=== PATIENT | male | born 1935 | race Caucasian/White ===

== ENCOUNTER 2016-12-09 16:00 | Inpatient (IN) | payer OTHER, MEDICARE ==
[~2016-12-09] VITALS: Ht 175.3 cm; Wt 84.8 kg
--- NOTE | 2016-12-09 16:15 | NUR ---
Informed waiting has been performed.
--- NOTE | 2016-12-09 16:15 | NUR ---
TRIAGE: PT TO ER WITH FAMILY C/C "NOSE BLEED, BAD LEGS, HE CAN'T WALK, HE'S NOT EATING. PAIN TO NECK AND SHOULDERS. LOWER SPINE HURTS". FELL A COUPLE DAYS AGO OFF A CHAIR PER S/O. FAMILY MEMBERS DO MOST OF THE TALKING FOR PATIENT BUT PATIENT DOES RATE PAIN 8/10 TO NECK/SHOULDER AREA. NOSE BLEED HAS BEEN INTERMITTENT X COUPLE WEEKS BUT CONSTANT X [address] ABBASI TODAY REGARDING SAME AND WAS ADVISED TO COME TO ER FOR EVAL. DAUGHTER STATES HE HAS BEEN REFUSING TO COME TO HOSPITAL BEFORE TODAY. PT SITS SLUMPED OVER IN W/C AT TRIAGE WEARING ONLY ?UNDERWEAR FROM WAIST DOWN AND SHIRT AND COAT. EXTREMITIES COLD TO TOUCH, UNABLE TO OBTAIN PULSE OXIMETRY READING AT TRIAGE. PT FALLS ASLEEP AT TRIAGE. FAMILY STATES HE HAS NOT BEEN SLEEPING.
--- NOTE | 2016-12-09 16:25 | ED GENERAL ADULT ---
See Addendum History of Present Illness General Chief Complaint: General Adult Stated Complaint: NOSE BLEED/BILATERAL LEG CELLULITIS Source: patient, family, old records Exam Limitations: clinical condition Vital Signs & Intake/Output Vital Signs & Intake/Output Vital Signs Date Time Temp Pulse Resp B/P B/P Pulse O2 O2 Flow FiO2 Mean Ox Delivery Rate 12/09 1823 97.4 65 15 135/61 100 Room Air Room Air 12/09 1804 100 Room Air Room Air 12/09 1648 55 15 108/57 100 Room Air Room Air 12/09 1605 97.6 56 94/54 Allergies Coded Allergies: No Known Allergies (12/09/16) Reconcile Medications Atorvastatin Calcium 80 MG TABLET 1 TAB PO DAILY CHOLESTEROL (Reported) Atropine Sulfate 1 % DROPS 1 DROP OS EOD LEFT EYE (Reported) Brimonidine Tartrate/Timolol (Combigan Eye Drops) 0.2 %-0.5 % DROPS 1 DROP OP BID BOTH EYES (Reported) Cephalexin 750 MG CAPSULE 1 CAP PO 4XDAILY ANTIBIOTIC (Reported) Dabigatran Etexilate Mesylate (Pradaxa 150 MG) 150 MG CAPSULE 1 CAP PO BID BLOOD THINNER (Reported) Fenofibrate Nanocrystallized (Tricor) 145 MG TABLET 1 TAB PO DAILY CHOLESTEROL /TRIGLYCERIDES (Reported) Furosemide 20 MG TABLET 1 TAB PO BID DIURETIC (Reported) Glucosam/Chond/Hyalu/Cf Borate (Move Free Joint Health Tablet) (Unknown Strength ) TABLET (Unknown Dose) PO AD SUPPLEMENT (Reported) Insulin Glargine,Hum.rec.anlog (Lantus Solostar) (Unknown Strength) INSULN.PEN (Unknown Dose) SC DAILY DM (Reported) Mesalamine (Asacol Hd) 800 MG TABLET.DR 2 TAB PO BID GI (Reported) Jesup-3/Dha/Epa/Fish Oil (Fish Oil 1,000 MG Softgel) (Unknown Strength) CAPSULE (Unknown Dose) PO DAILY SUPPLEMENT (Reported) Potassium Chloride 20 MEQ TAB.ER.PRT 1 TAB PO DAILY SUPPLEMENT (Reported) Silver Sulfadiazine (Silvadene) 1 % CREAM..G. 1 KEE TOP BID BILATERAL SHINS ( Reported) apply to affected area(s) Torsemide 100 MG TABLET 0.5 TAB PO DAILY DIURETIC (Reported) Valsartan/Hydrochlorothiazide (Valsartan-Hctz 320-25 MG Tab) 320 MG-25 MG TABLET 1 TAB PO DAILY BP (Reported) Triage Note: TRIAGE: PT TO ER WITH FAMILY C/C "NOSE BLEED, BAD LEGS, HE CAN'T WALK, HE'S NOT EATING. PAIN TO NECK AND SHOULDERS. LOWER SPINE HURTS". FELL A COUPLE DAYS AGO OFF A CHAIR PER S/O. FAMILY MEMBERS DO MOST OF THE TALKING FOR PATIENT BUT PATIENT DOES RATE PAIN 8/10 TO NECK/SHOULDER AREA. NOSE BLEED HAS BEEN INTERMITTENT X COUPLE WEEKS BUT CONSTANT X [address] ABBASI TODAY REGARDING SAME AND WAS ADVISED TO COME TO ER FOR EVAL. DAUGHTER STATES HE HAS BEEN REFUSING TO COME TO HOSPITAL BEFORE TODAY. PT SITS SLUMPED OVER IN W/C AT TRIAGE WEARING ONLY ?UNDERWEAR FROM WAIST DOWN AND SHIRT AND COAT. EXTREMITIES COLD TO TOUCH, UNABLE TO OBTAIN PULSE OXIMETRY READING AT TRIAGE. PT FALLS ASLEEP AT TRIAGE. FAMILY STATES HE HAS NOT BEEN SLEEPING. Triage Nurses Notes Reviewed? yes Onset: UNKNOWN Duration: worse persistent since (2-3 WEEKS) Timing: recent history Injury Environment: home Severity: severe No Modifying Factors: none HPI: Patient is an 80-year-old male with history of alcohol abuse, drinks at least 5- 6 beers daily along with 5-6 glasses of wine. His last drink was 2 days ago. They're coming in with family today with multiple complaints. Patient has had on and off nosebleeds for the past 5-6 days. Per the he had a fall 5-6 days ago but didn't tell anyone until several days later. Patient complaining about headache that is frontal and throbbing. Patient also complaining about dark stool that thing going on for the past several days. Positive malaise. No fevers or chills. Per the the fall was unwitnessed and he crawled into bed that night. Patient cannot recall the fall actually happening. Patient denying any visual changes. No blurred vision or double vision. Denies any eye pain. Today the family noticed that his right eye was bulging compared to the left eye. They report that this is new today. reports that he gets lightheaded only with positional changes. Patient also reporting neck pain for the past week or so. Pain is worse in the morning and then improves strep a day. Family reports that they feel he is "sluggish". Denies chest pain or shortness of breath. They called the primary care physician a few days ago and he instructed them to bring him to the emergency department. Patient refused at that time. Patient does take a blood thinner daily. Per the patient has been refusing TO TAKE MEDS over the past couple days. Also refusing to take some of his daily medications. (DIVYA POSADA) Past History Travel History Traveled to [place] past 21 day No Medical History Any Pertinent Medical History? see below for history Neurological: NONE EENT: NONE Cardiovascular: CAD, hypertension, hyperlipidemia, AFIB Respiratory: NONE Gastrointestinal: NONE Hepatic: NONE Renal: NONE Musculoskeletal: BLE EXTREMITY INFECTION Psychiatric: NONE Endocrine: diabetes Blood Disorders: NONE Cancer(s): NONE TAMPER OPERATOR/Reproductive: NONE Surgical History Surgical History: non-contributory Psychosocial History What is your primary language Stateless Tobacco Use: Quit >30 days ago ETOH Use: heavy use Illicit Drug Use: denies illicit drug use Family History Hx Contributory? No (DIVYA POSADA) Review of Systems Review of Systems Constitutional: Reports: malaise. Comments Review of systems: See HPI, All other systems negative. Constitutional, no chills fever or weight loss HEENT: No visual changes no sore throat no congestion Cardiovascular: No chest pain ,palpitation , orthopnea or ankle swelling Skin, no jaundice no rashes Respiratory: No dyspnea cough sputum or hemoptysis GI: No nausea no vomiting : No dysuria No hematuria Muscle skeletal: no back pain Neurologic: No numbness Psych: No INCREASED stress anxiety or depression,. Heme/endocrine: ON BLOOD THINNERS-NOSE BLEEDS Immunology: No splenectomy or history of AIDS (DIVYA POSADA) Physical Exam Physical Exam General Appearance: lethargic, DISHEVELED Comments: Well-developed well-nourished person in no acute distress HEENT: Right orbit that appears to be protruding compared to left orbit. Extraocular motion intact, no nystagmus. Left pupil is round, 3 mm equal and reactive to light and accommodation. Right pupil is approximately 2 cm and fixed, nonreactive to light or accommodation. Dried blood in bilateral nares. No obvious septal hematoma identified. External auditory canal and Tympanic membranes clear. Nares dry oral mucosa. Tongue appears large. Neck: Supple, no lymphadenopathy, normal range of motion without pain or tenderness, no C-spine tenderness to palpation. Back: Nontender Cardiovascular: IREGULAR rate and rhythms normal JVP Respiratory: Chest nontender. No respiratory distress.breath sounds clear to auscultation bilaterally Abdomen: Soft, nontender nondistended, no appreciable organomegaly. Normal bowel sounds. No ascites, no rebound or guarding. Extremity: Mild nonpitting edema and enlarged ovaries bilaterally, no calf tenderness to palpation, pedal pulses are 1+ bilaterally. Delayed capillary refill at approximately 4 seconds on the lower extremities bilaterally. Neuro: Alert oriented x3, motor sensory normal, cranial nerves IIi through XII grossly intact. Skin: Chronic appearing ulcers noted on the large ovaries bilaterally on the shins. On the right lower extremity there are 2 ulcerous lesions approximately 6 cm each, unable to great at this time secondary to debris tissue on the wound, likely grade 2 wounds, no surrounding erythema. There are 3 similar circular ulcerous wounds noted on the left rubin approximately 4-5 cm each. There is granulation tissue noted on the ulcers of the left lower extremity. Cyanosis noted with delayed cap refill of the fingers of the upper extremity. Psych: Lethargic, responds to questions when asked. Poor memory. Core Measures ACS in differential dx? Yes CVA/TIA Diagnosis: No Severe Sepsis Present: No Septic Shock Present: No (DARBY POLLOCK,DIVYA) Progress Differential Diagnoses I considered the following diagnoses in my evaluation of the patient: Intracranial bleed, minor head injury, thyroid dysfunction, diabetic ketoacidosis, upper GI bleed, ACS, dehydration and acute renal failure Diagnostic Imaging: Viewed by Me: Radiology Read, CT Scan. Discussed w/RAD: Radiology Read, CT Scan. Radiology Impression: PATIENT: JENNIFER TABARES PRESENT AGE: 80 PATIENT ACCOUNT NO: [id number] : 35 LOCATION: [facility] ORDERING PHYSICIAN: DIVYA POLLOCK SERVICE DATE: 12/09/16 EXAM TYPE: CAT - CT CERV SPINE WO IV CONTRAST; CT HEAD WO IV CONTRAST; CT MAXILLOFACIAL W/O CON EXAMINATION: CT HEAD WITHOUT CONTRAST CT FACIAL BONES WITHOUT CONTRAST CLINICAL INFORMATION: Unwitnessed fall, pain COMPARISON: None. TECHNIQUE: Contiguous axial imaging was performed from the skull base to vertex without intravenous administration of contrast. In addition, helical noncontrast CT imaging was acquired through the facial bones and source images were reviewed along with axial reconstructions and sagittal and coronal MPRs. DLP: 1549.8 mGy-cm FINDINGS : HEAD: No intracranial mass, hemorrhage, or midline shift is visualized. No extra-axial collections are identified. The ventricles and sulci are mildly appropriate consistent with stated age. There is an area of hypoattenuation within the left posterior occipital region which extends to the inner table. The adjacent sulci are normal. A similar but much less prominent findings noted on the right side. In addition, there is mild diffuse hypoattenuation within the periventricular and subcortical white matter. Incidentally noted scattered punctate calcifications throughout the calvarium. These are present along the sulci and are predominately left sided. Moderate to significant calcifications involving the cavernous portions of the carotid arteries. There is mild mucosal thickening within the left ethmoid air cells. Trace mucosal thickening is present within the right anterior ethmoid air cells. Mild circumferential mucosal thickening present within the left maxillary sinus. The right maxillary sinus and sphenoid sinuses are well aerated. FACIAL BONES: There is no evidence of an acute facial bone fracture. The orbits are symmetric and intact. No significant dental disease is visualized. Soft tissues are unremarkable. IMPRESSION: No acute intracranial process or discrete facial bone fracture. Moderate chronic small vessel ischemic changes. 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 EXAMINATION: CT CERVICAL SPINE WITHOUT AND WITH CONTRAST CLINICAL INFORMATION: Unwitnessed fall, pain COMPARISON: None. TECHNIQUE: Multidetector CT imaging of the cervical spine was performed and displayed in axial, coronal and sagittal reformations DLP: See above FINDINGS: No prevertebral soft tissue swelling. No acute fracture or subluxation. The lateral masses of C1 are normally located relative to the odontoid process. Well-corticated fragments of bone are identified at the anterior and inferior corners of the C3, C4 and C5 vertebral bodies. Bridging osteophytes are present at the C5-C6, C6-C7 and C7-T1 levels. Small posterior osteophytes are present at the C6-C7 and C7-T1 levels. There is mild loss in height of the intervertebral disc space at the C3-C4 and C5-C6 levels. Surgical clips noted in the region of the carotid bulb likely from prior surgery. The lung apices are clear. IMPRESSION: No acute fracture or subluxation of the cervical spine. Mild to moderate spondylosis of the cervical spine., PATIENT: JENNIFER TABARES PRESENT AGE: 80 PATIENT ACCOUNT NO: [id number] : 35 LOCATION: [facility] ORDERING PHYSICIAN: DIVYA POLLOCK SERVICE DATE: 12/09/16 EXAM TYPE: CAT - CT ABD & PELVIS W/O IV CONTRAS; CT CHEST WO IV CONTRAST EXAMINATION: CT CHEST WITHOUT IV CONTRAST CT ABDOMEN AND PELVIS WITHOUT IV CONTRAST CLINICAL INFORMATION: 80-year-old male status post fall. Abdominal pain. Evaluate for acute intrathoracic and abdominal process. COMPARISON: None TECHNIQUE: Noncontrast, multidetector CT imaging examination of the chest, abdomen and pelvis was performed. Axial images are displayed at 5 mm and 0.625 mm slice thickness. Coronal and sagittal reformatted images were generated at the technologist's workstation and submitted for review. DLP: 938 mGy-cm FINDINGS: CHEST - LUNGS and PLEURA: No pulmonary contusion, edema, pneumothorax or pleural effusion. Small, 0.3 cm calcified granuloma at the right lung apex. Minimal pulmonary emphysema. MEDIASTINUM: Atherosclerotic calcification of coronary arteries and thoracic aorta without aortic aneurysm. No mediastinal hematoma. The esophagus is unremarkable. LYMPHATICS: No pathologic sized axillary, hilar or mediastinal lymph nodes. CHEST WALL/BONES: There is an old, healed fracture of the right lateral seventh rib. No acute, displaced rib fractures. Thoracic vertebra have normal height and alignment. Diffuse idiopathic skeletal hyperostosis as manifest by flowing anterior ligament ossification of the degenerated thoracic spine. ABDOMEN AND PELVIS - HEPATOBILIARY: Liver has normal size and contour. Punctate calcification is seen in the right hepatic lobe. No noncontrast imaging evidence of hepatic laceration or perihepatic fluid collection. Gallbladder is unremarkable. PANCREAS: Unremarkable. SPLEEN: Unremarkable. ADRENAL GLANDS: Unremarkable. KIDNEYS, URETERS, BLADDER: There is likely a small, 0.7 cm cortical cyst of the interpolar left kidney. No nephrolithiasis or hydronephrosis. The ureters are normal in caliber. Urinary bladder is unremarkable. GASTROINTESTINAL TRACT: Stomach is unremarkable. Bowel loops are normal in caliber. The appendix is normal. Diverticulosis of the descending and proximal sigmoid colon without diverticulitis. No ascites or pneumoperitoneum. ABDOMINAL WALL: No acute findings. No hematoma or focal fluid collection. VASCULAR: There is extensive atherosclerotic calcification of the aorta and branch vessels. No aortic aneurysm. No retroperitoneal hematoma. LYMPH NODES: No pathologic sized lymph nodes within the abdomen or pelvis. PELVIC VISCERA: Prostate gland is unremarkable. No pelvic free fluid. OSSEOUS STRUCTURES: The lumbar vertebra have normal height and alignment. No acute fractures within anterior or posterior elements of the degenerated lumbar spine. The pelvic bones and proximal femurs are intact. IMPRESSION: 1. No acute traumatic pathology in the chest, abdomen or pelvis. 2. Atherosclerotic disease of coronary arteries and aorta without aortic aneurysm. No retroperitoneal hematoma. 3. Diverticulosis of the descending and sigmoid colon without diverticulitis. DICTATED BY: JAXON MARAVILLA MD DATE/TIME DICTATED:12/09/161799 POLICYHOLDER INFORMATION CLERK:MARSHA DATE/TIME TRANSCRIBED:12/09/161799 CONFIDENTIAL, DO NOT COPY WITHOUT APPROPRIATE AUTHORIZATION. <Electronically signed in Other Vendor System> SIGNED BY: JAXON MARAVILLA MD 12/09/16 181 CXR Impression: PATIENT: JENNIFER TABARES PRESENT AGE: 80 PATIENT ACCOUNT NO: [id number] : 35 LOCATION: [facility] ORDERING PHYSICIAN: DIVYA POLLOCK SERVICE DATE: 12/09/16 EXAM TYPE: CAT - CT ABD & PELVIS W/O IV CONTRAS; CT CHEST WO IV CONTRAST EXAMINATION: CT CHEST WITHOUT IV CONTRAST CT ABDOMEN AND PELVIS WITHOUT IV CONTRAST CLINICAL INFORMATION: 80-year -old male status post fall. Abdominal pain. Evaluate for acute intrathoracic and abdominal process. COMPARISON: None TECHNIQUE: Noncontrast, multidetector CT imaging examination of the chest, abdomen and pelvis was performed. Axial images are displayed at 5 mm and 0.625 mm slice thickness. Coronal and sagittal reformatted images were generated at the technologist's workstation and submitted for review. DLP: 938 mGy-cm FINDINGS: CHEST - LUNGS and PLEURA: No pulmonary contusion, edema, pneumothorax or pleural effusion. Small, 0.3 cm calcified granuloma at the right lung apex. Minimal pulmonary emphysema. MEDIASTINUM: Atherosclerotic calcification of coronary arteries and thoracic aorta without aortic aneurysm. No mediastinal hematoma. The esophagus is unremarkable. LYMPHATICS: No pathologic sized axillary, hilar or mediastinal lymph nodes. CHEST WALL/BONES: There is an old, healed fracture of the right lateral seventh rib. No acute, displaced rib fractures. Thoracic vertebra have normal height and alignment. Diffuse idiopathic skeletal hyperostosis as manifest by flowing anterior ligament ossification of the degenerated thoracic spine. ABDOMEN AND PELVIS - HEPATOBILIARY: Liver has normal size and contour. Punctate calcification is seen in the right hepatic lobe. No noncontrast imaging evidence of hepatic laceration or perihepatic fluid collection. Gallbladder is unremarkable. PANCREAS: Unremarkable. SPLEEN: Unremarkable. ADRENAL GLANDS: Unremarkable. KIDNEYS, URETERS, BLADDER: There is likely a small, 0.7 cm cortical cyst of the interpolar left kidney. No nephrolithiasis or hydronephrosis. The ureters are normal in caliber. Urinary bladder is unremarkable. GASTROINTESTINAL TRACT: Stomach is unremarkable. Bowel loops are normal in caliber. The appendix is normal. Diverticulosis of the descending and proximal sigmoid colon without diverticulitis. No ascites or pneumoperitoneum. ABDOMINAL WALL: No acute findings. No hematoma or focal fluid collection. VASCULAR: There is extensive atherosclerotic calcification of the aorta and branch vessels. No aortic aneurysm. No retroperitoneal hematoma. LYMPH NODES: No pathologic sized lymph nodes within the abdomen or pelvis. PELVIC VISCERA: Prostate gland is unremarkable. No pelvic free fluid. OSSEOUS STRUCTURES: The lumbar vertebra have normal height and alignment. No acute fractures within anterior or posterior elements of the degenerated lumbar spine. The pelvic bones and proximal femurs are intact. IMPRESSION: 1. No acute traumatic pathology in the chest, abdomen or pelvis. 2. Atherosclerotic disease of coronary arteries and aorta without aortic aneurysm. No retroperitoneal hematoma. 3. Diverticulosis of the descending and sigmoid colon without diverticulitis. Initial ED EKG: AFIB Comments: 12/09/2016 4:40:27 PM patient and family members informed of all lab tests results and imaging study results. They were informed that patient is anemic, has acute renal failure and has a positive troponin. This will likely be corrected with IV hydration. Patient will need admission. No acute findings on imaging studies. ON reevaluation patient's color seems to be improving. No cyanosis noted on the hands at this time. 12/09/2016 5:46:[address] Mustafa, patient's compressor battery pellets, he is aware the patient will be admitted for acute renal failure, elevated troponin. Likely secondary to acute renal failure. We'll trend troponins and EKGs. 12/09/2016 7:45:48 PM spoke with MOD patient will be admitted to telemetry for acute renal failure, anemia, hyperkalemia, positive troponin. (DARBY POLLOCK,DIVYA) Plan of Care: Orders Procedure Date/time Status Regular Diet 12/10 B Active Saline Lock 12/09 2001 Active Misc Message 12/09 2001 Active ED Holding Orders 12/09 2001 Active Vital Signs 12/09 2001 Active CIWA 12/09 2001 Active Activity/Ambulation 12/09 2001 Active Code Status 12/09 2001 Active Patient Data 12/09 1944 Active LACTIC ACID 12/09 1925 Active Admit to inpatient 12/09 1916 Active Admit to inpatient 12/09 1909 Active MISTAKE 12/09 1816 Active ARTERIAL BLOOD GAS (GEN) 12/09 1732 Active Add-on Test (ER Only) 12/09 1649 Active URINALYSIS 12/09 1648 Active Add-on Test (ER Only) 12/09 1645 Active FingerStick- Glucose 12/09 1645 Active AMMONIA 12/09 1639 Complete TSH REFLEX 12/09 1635 Complete MAGNESIUM 12/09 1635 Complete FOLIC ACID 12/09 1635 Complete ETHANOL 12/09 1635 Complete VITAMIN B12 12/09 1635 Complete ACETONE 12/09 1635 Complete Telemetry/Laboratory Director 12/09 1625 Active BLOOD CULTURE 12/09 1625 Active TROPONIN LEVEL 12/09 1625 Complete PARTIAL THROMBOPLASTIN TIME 12/09 1625 Complete PROTHROMBIN TIME 12/09 1625 Complete LACTIC ACID 12/09 1625 Complete COMPREHENSIVE METABOLIC PANEL 12/09 1625 Complete CBC WITHOUT DIFFERENTIAL 12/09 1625 Complete EKG 12/09 1625 Active TYPE & SCREEN (NOT X-MATCH) 12/09 1625 Complete Current Medications Sig/Marco Start time Last Medication Dose Stop Time Status Admin Sodium Chloride 1,000 ML .[id number] 12/09 2014 UNVr (Normal Saline 0.9%) Sodium Chloride 1,000 ML BOLUS ONE 12/09 1815 AC 12/09 (Normal Saline 0.9%) 12/09 2013 1847 Sodium Chloride 1,000 ML ONCE ONE 12/09 1715 AC 12/09 (Normal Saline 0.9%) 12/10 0114 1724 Laboratory Tests 12/09/16 1945: Lactic Acid Pending 12/09/16 1750: pH 7.34 L, pCO2 22 L, pO2 110 H, HCO3 12 L, ABG O2 Sat (Measured) 97.0, P-50 (Temp Corrected) N, Carboxyhemoglobin 0.3 L, O2 Concentration % R/A, Temperature 97.6, Phlebotomy Draw Site RIGHT BRACHIAL 12/09/16 1635: Ammonia 17 12/09/16 1635: Anion Gap 23 H, Estimated GFR 7 L, BUN/Creatinine Ratio 27.3 H, Glucose 123 H, Lactic Acid 4.6 H, Calcium 9.5, Magnesium 3.1 H, Total Bilirubin 0.8, AST 51, ALT 49, Alkaline Phosphatase 46, Troponin I 0.25 *H, Total Protein 6.5, Albumin 3.5, Globulin 3.0, Albumin/Globulin Ratio 1.2, Vitamin B12 639, Folate 4.8, TSH &T3 &Free T4 Intrp 3.780, PT 57.2 *H, INR 5.54 *H, APTT 102 *H, CBC w Diff NO MAN DIFF REQ, RBC 2.61 L, MCV 92.8, MCH 30.6, RDW 17.4 H, MPV 9.8, Gran % 90.6 H, Lymphocytes % 3.5 L, Monocytes % 5.2, Eosinophils % 0.3, Basophils % 0.4, Absolute Granulocytes 11.3 H, Absolute Lymphocytes 0.4 L, Absolute Monocytes 0.7 H, Absolute Eosinophils 0, Absolute Basophils 0, PUBS MCHC 33.0, Serum Alcohol < 10.0, Acetone Level NEGATIVE Microbiology 12/09 1944 BLOOD: Blood Culture - RECD 12/09 1634 BLOOD: Blood Culture - RECD Departure Departure Time of Disposition: 1850 Disposition: STILL A PATIENT Condition: Stable Clinical Impression Primary Impression: Acute renal failure Qualifiers: Acute renal failure type: unspecified Qualified Code: N17.9 - Acute kidney failure, unspecified Secondary Impressions: Anemia Qualifiers: Anemia type: unspecified type Qualified Code: D64.9 - Anemia, unspecified Elevated troponin Epistaxis Hyperkalemia Referrals: KHOA ABBASI MD (PCP/Family) Departure Forms: Customer Survey General Discharge Information Admission Note Spoke With: DANIEL RUIZ MD Documentation of Exam: Documentation of any treatments & extenuating circumstances including Concerns Regarding Discharge (functional status, medication knowledge or non-compliance, living conditions, etc.) that warrant an admission rather than observation: IV hydration, hold Bumex, nephrology consultation, serial EKGs and troponins, cardiology consultation, serial H&H. May require GI consultation has patient is a chronic alcoholic with a low H&H may require endoscopy. Discharge at this time would be medically HARMFUL (DIVYA POSADA) PA/DRUG ROOM OPERATOR Co-Sign Statement Statement: ED Attending supervision documentation- [X] I saw and evaluated the patient. I have also reviewed all the pertinent lab results and diagnostic results. I agree with the findings and the plan of care as documented in the PA's/DRUG ROOM OPERATOR's documentation. [] I have reviewed the ED Record and agree with the PA's/DRUG ROOM OPERATOR's documentation. [] Additions or exceptions (if any) to the PAs/DRUG ROOM OPERATOR's note and plan are summarized below: [] (ENOC GIBBS,MAIA Perez) Critical Care Note Critical Care Note Critical Care Time: 75-104 min (DIVYA POSADA)
--- NOTE | 2016-12-09 16:46 | NUR ---
BLOOD WORK DRAWN AND SENT TO LAB: SST, LAV, BLUE, BENITEZ, PINK, GREEN (ON ICE) AND FIRST SET OF BLOOD CULTURES. PA STUDENT AT BEDSIDE FOR EVAL.
[2016-12-09 16:53] LABS: ABSOLUTE BASOPHIL COUNT 0 /CUMM (0.0-0.2); ABSOLUTE EOSINOPHIL COUNT 0 /CUMM (0.0-0.7); ABSOLUTE GRANULOCYTE CT 11.3 /CUMM (1.4-6.5); ABSOLUTE LYMPH COUNT 0.4 /CUMM (1.2-3.4); ABSOLUTE MONOCYTE COUNT 0.7 /CUMM (0.10-0.60); BASOPHIL % 0.4 % (0.0-2.0); EOSINOPHIL % 0.3 % (0-5); GRANULOCYTE % 90.6 % (42.2-75.2); HEMATOCRIT 24.3 % (42-52); MEAN CORPUSCULAR HGB 30.6 PG (27.0-31.0); MEAN CORPUSCULAR VOLUME 92.8 FL (80.0-94.0); MEAN PLATELET VOLUME 9.8 FL (7.4-10.4); PLATELET COUNT 329 /CUMM (130-400); RBC DISTRIBUTION WIDTH 17.4 % (11.5-14.5); RED BLOOD CELL CT 2.61 /CUMM (4.70-6.10); WHITE BLOOD CELL COUNT 12.5 /CUMM (4.8-10.8)
--- NOTE | 2016-12-09 17:25 | NUR ---
CRITICAL TEST RESULTS [id number] JENNIFER TABARES S 80 M TESTS AND RESULTS: BUN 202 CREATININE 7.4 Results received and read back by: ZARIA HOYT Results received date and time: 12/09/16 1726 The following provider was notified of the results, and read the results back: PHILL PASTOR Notified date and time: 12/09/16 at 1724
--- NOTE | 2016-12-09 17:25 | NUR ---
PT TO CAT SCAN VIA STRETCHER NOW.
--- NOTE | 2016-12-09 17:33 | RADIOLOGY REPORT ---
EXAMINATION: XR PORTABLE CHEST CLINICAL INFORMATION: Rule out pneumonia. Confusion. COMPARISON: None TECHNIQUE: Portable AP view of the chest was obtained. FINDINGS: Lungs are clear. No focal consolidation or mass. Normal pulmonary vascularity. No pleural effusion or pneumothorax. Cardiac silhouette is enlarged.. Regional skeleton intact. IMPRESSION: No acute pulmonary disease. Enlarged cardiac silhouette which may reflect cardiomegaly and/or pericardial effusion.
--- NOTE | 2016-12-09 17:36 | NUR ---
CRITICAL TEST RESULTS [id number] JENNIFER TABARES S 80 M TESTS AND RESULTS: TROPONIN 0.25 Results received and read back by: ZARIA HOYT Results received date and time: 12/09/16 1736 The following provider was notified of the results, and read the results back: DIVYA PASTOR Notified date and time: 12/09/16 at 1738
[2016-12-09 17:59] LABS: PT 57.2 SEC (9.4-12.5)
--- NOTE | 2016-12-09 18:00 | NUR ---
CRITICAL TEST RESULTS [id number] JENNIFER TABARES S 80 M TESTS AND RESULTS: PT - 57.2; INR - 5.54 Results received and read back by: PAOLO MALAVE Results received date and time: 12/09/16 1800 The following provider was notified of the results, and read the results back: DIVYA POLLOCK Notified date and time: 12/09/16 at 1758
[2016-12-09 18:03] LABS: PTT 102 SEC (25-37)
--- NOTE | 2016-12-09 18:03 | NUR ---
CRITICAL TEST RESULTS [id number] JENNIFER TABARES S 80 M TESTS AND RESULTS: PTT 102 Results received and read back by: ZARIA HOYT Results received date and time: 12/09/16 180 The following provider was notified of the results, and read the results back: DIVYA POLLOCK Notified date and time: 12/09/16 at 1803
--- NOTE | 2016-12-09 18:13 | CT SCAN REPORT ---
EXAMINATION: CT CHEST WITHOUT IV CONTRAST CT ABDOMEN AND PELVIS WITHOUT IV CONTRAST CLINICAL INFORMATION: 80-year-old male status post fall. Abdominal pain. Evaluate for acute intrathoracic and abdominal process. COMPARISON: None TECHNIQUE: Noncontrast, multidetector CT imaging examination of the chest, abdomen and pelvis was performed. Axial images are displayed at 5 mm and 0.625 mm slice thickness. Coronal and sagittal reformatted images were generated at the technologist's workstation and submitted for review. DLP: 938 mGy-cm FINDINGS: CHEST - LUNGS and PLEURA: No pulmonary contusion, edema, pneumothorax or pleural effusion. Small, 0.3 cm calcified granuloma at the right lung apex. Minimal pulmonary emphysema. MEDIASTINUM: Atherosclerotic calcification of coronary arteries and thoracic aorta without aortic aneurysm. No mediastinal hematoma. The esophagus is unremarkable. LYMPHATICS: No pathologic sized axillary, hilar or mediastinal lymph nodes. CHEST WALL/BONES: There is an old, healed fracture of the right lateral seventh rib. No acute, displaced rib fractures. Thoracic vertebra have normal height and alignment. Diffuse idiopathic skeletal hyperostosis as manifest by flowing anterior ligament ossification of the degenerated thoracic spine. ABDOMEN AND PELVIS - HEPATOBILIARY: Liver has normal size and contour. Punctate calcification is seen in the right hepatic lobe. No noncontrast imaging evidence of hepatic laceration or perihepatic fluid collection. Gallbladder is unremarkable. PANCREAS: Unremarkable. SPLEEN: Unremarkable. ADRENAL GLANDS: Unremarkable. KIDNEYS, URETERS, BLADDER: There is likely a small, 0.7 cm cortical cyst of the interpolar left kidney. No nephrolithiasis or hydronephrosis. The ureters are normal in caliber. Urinary bladder is unremarkable. GASTROINTESTINAL TRACT: Stomach is unremarkable. Bowel loops are normal in caliber. The appendix is normal. Diverticulosis of the descending and proximal sigmoid colon without diverticulitis. No ascites or pneumoperitoneum. ABDOMINAL WALL: No acute findings. No hematoma or focal fluid collection. VASCULAR: There is extensive atherosclerotic calcification of the aorta and branch vessels. No aortic aneurysm. No retroperitoneal hematoma. LYMPH NODES: No pathologic sized lymph nodes within the abdomen or pelvis. PELVIC VISCERA: Prostate gland is unremarkable. No pelvic free fluid. OSSEOUS STRUCTURES: The lumbar vertebra have normal height and alignment. No acute fractures within anterior or posterior elements of the degenerated lumbar spine. The pelvic bones and proximal femurs are intact. IMPRESSION: 1. No acute traumatic pathology in the chest, abdomen or pelvis. 2. Atherosclerotic disease of coronary arteries and aorta without aortic aneurysm. No retroperitoneal hematoma. 3. Diverticulosis of the descending and sigmoid colon without diverticulitis.
--- NOTE | 2016-12-09 18:15 | NUR ---
ATTEMPTED TO DRAW 2ND SET OF CULTURES, i ATTEMPTED TO REPOSITION THE BUTTERFLY, PT DAUGHTER SHRIEKED AND STATED SHE CAN'T WATCH SOMEONE "FISH AROUND, DAUGHTER EDUCATED ON BLOOD DRAW AND DRAW DISCONTINUED DUE TO DAUGHTERS OBJECTIONS.
--- NOTE | 2016-12-09 18:23 | CT SCAN REPORT ---
EXAMINATION: CT HEAD WITHOUT CONTRAST CT FACIAL BONES WITHOUT CONTRAST CLINICAL INFORMATION: Unwitnessed fall, pain COMPARISON: None. TECHNIQUE: Contiguous axial imaging was performed from the skull base to vertex without intravenous administration of contrast. In addition, helical noncontrast CT imaging was acquired through the facial bones and source images were reviewed along with axial reconstructions and sagittal and coronal MPRs. DLP: 1549.8 mGy-cm FINDINGS: HEAD: No intracranial mass, hemorrhage, or midline shift is visualized. No extra-axial collections are identified. The ventricles and sulci are mildly appropriate consistent with stated age. There is an area of hypoattenuation within the left posterior occipital region which extends to the inner table. The adjacent sulci are normal. A similar but much less prominent findings noted on the right side. In addition, there is mild diffuse hypoattenuation within the periventricular and subcortical white matter. Incidentally noted scattered punctate calcifications throughout the calvarium. These are present along the sulci and are predominately left sided. Moderate to significant calcifications involving the cavernous portions of the carotid arteries. There is mild mucosal thickening within the left ethmoid air cells. Trace mucosal thickening is present within the right anterior ethmoid air cells. Mild circumferential mucosal thickening present within the left maxillary sinus. The right maxillary sinus and sphenoid sinuses are well aerated. FACIAL BONES: There is no evidence of an acute facial bone fracture. The orbits are symmetric and intact. No significant dental disease is visualized. Soft tissues are unremarkable. IMPRESSION: No acute intracranial process or discrete facial bone fracture. Moderate chronic small vessel ischemic changes. 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 EXAMINATION: CT CERVICAL SPINE WITHOUT AND WITH CONTRAST CLINICAL INFORMATION: Unwitnessed fall, pain COMPARISON: None. TECHNIQUE: Multidetector CT imaging of the cervical spine was performed and displayed in axial, coronal and sagittal reformations DLP: See above FINDINGS: No prevertebral soft tissue swelling. No acute fracture or subluxation. The lateral masses of C1 are normally located relative to the odontoid process. Well-corticated fragments of bone are identified at the anterior and inferior corners of the C3, C4 and C5 vertebral bodies. Bridging osteophytes are present at the C5-C6, C6-C7 and C7-T1 levels. Small posterior osteophytes are present at the C6-C7 and C7-T1 levels. There is mild loss in height of the intervertebral disc space at the C3-C4 and C5-C6 levels. Surgical clips noted in the region of the carotid bulb likely from prior surgery. The lung apices are clear. IMPRESSION: No acute fracture or subluxation of the cervical spine. Mild to moderate spondylosis of the cervical spine.
[2016-12-09] MEDS ORDERED: VALSARTAN-HCTZ1 EAC3 PO (18:25)
[2016-12-09] MEDS ORDERED: TORSEMIDE100 M1 PO (18:26)
[2016-12-09] MEDS ORDERED: CEPHALEXIN750 MG PO (18:26)
[2016-12-09] MEDS ORDERED: PRADAXA150 M1 PO (18:27)
[2016-12-09] MEDS ORDERED: FUROSEMIDE20 M1 PO (18:27)
[2016-12-09] MEDS ORDERED: TRICOR145 M1 PO (18:27)
[2016-12-09] MEDS ORDERED: ATORVASTATIN CA80 M1 PO (18:27)
[2016-12-09] MEDS ORDERED: POTASSIUM CHLO20 ME2 PO (18:28)
[2016-12-09] MEDS ORDERED: ASACOL HD800 M1 PO (18:28)
[2016-12-09] MEDS ORDERED: FISH OIL 1,001000 MG PO (18:29)
[2016-12-09] MEDS ORDERED: MOVE FREE JOIN1 EACH PO (18:29)
[2016-12-09] MEDS ORDERED: COMBIGAN EYE DRO5 ML OP (18:30)
[2016-12-09] MEDS ORDERED: ATROPINE SULFATE2 ML OS (18:31)
[2016-12-09] MEDS ORDERED: LANTUS SOL100 UNIT/1 SC (18:32)
[2016-12-09] MEDS ORDERED: SILVADENE20 GM TOP (18:33)
--- NOTE | 2016-12-09 19:49 | NUR ---
PHILL PASTOR AND PA STUDENT AT BEDSIDE.
--- NOTE | 2016-12-09 19:49 | NUR ---
SECOND SET OF CULTURES AND REPEAT LACTIC SENT TO LAB WELL A BLUE TOP TUBE.
--- NOTE | 2016-12-09 19:59 | NUR ---
PA STUDENT REMAINS AT BEDSIDE.
--- NOTE | 2016-12-09 20:47 | NUR ---
PT AWARE THAT URINE SPECIMEN IS NEEDED.
--- NOTE | 2016-12-09 21:37 | NUR ---
HOUSESTAFF AT BEDSIDE FOR EVAL.
--- NOTE | 2016-12-09 22:06 | NUR ---
URINE SPECIMEN SENT TO LAB [facility]IA [facility]
--- NOTE | 2016-12-09 22:25 | NUR ---
FAMILY REMAINS AT BEDSIDE FOR COMFORT. PT OFFERS NO COMPLAINTS. WILL CONTINUE TO MONITOR.
[2016-12-09 23:01] VITALS: BP 138/88
--- NOTE | 2016-12-09 23:01 | NUR ---
pt assigned to room 110
--- NOTE | 2016-12-09 23:26 | NUR ---
RECEIVING NURSE ON ICU STATES SHE WILL RETURN CALL FOR REPORT.
--- NOTE | 2016-12-09 23:38 | NUR ---
REPORT GIVEN TO ISABELA GRIGGS ON ICU. PER ISABELA GRIGGS BED IS NOT READY SHE WILL CALL WHEN BED IS READY.
--- NOTE | 2016-12-09 23:46 | History & Physical ---
CARINA GIBBS,[facility] 12/09/16 2345: General Information and [facility] MD Statement: I have seen and personally examined JENNIFER TABARES and documented this H&P. The patient is a 80 year old M who presented with a patient stated chief complaint of [epistaxis]. Source of Information: patient, family Exam Limitations: no limitations History of Present Illness: This is an 80-year-old gentleman whose medical issues include hypertension, hyperlipidemia, atrial fibrillation on Pradaxa, diabetes mellitus, former nicotine use quit over 20 years ago, daily alcohol use drinks 5-6 beers roughly 6 nights of the week, no previous alcohol withdrawal seizures, previous attempt for rehabilitation presents to the emergency room with acute epistaxis. By the time he was evaluated in the emergency room his epistaxis has resolved. Per patient and family he first developed mechanical falls about 6 weeks ago and he fell on his shins, subsequently he had skin breakdown which were not attended to up until 3 weeks ago when he saw his cellar worker Dr. Clemons who placed him on Keflex. About a week ago he again had a mechanical fall however no head trauma or loss of consciousness either this time or the episode 6 weeks ago. He was prompted to come to the emergency room by his female friend however he was reluctant to do so. Today after the epistaxis he presented to the ER. Complains that over the course of the last week his by mouth appetite has markedly decreased use only been consuming fluids and alcohol, he would usually requires to hold onto furniture for ambulation and hence at times uses a walker. Patient at present only complains of bilateral lower extremity pain, also states that he had a couple bouts of bloody bowel movement which he attributes to his hemorrhoids. However he overtly denied a digital rectal examination. While in the ER he was found to have leukocytosis, hyperkalemia, positive troponin and acute renal failure, anion gap lactic acidosis. He is being admitted to the cardiac telemetry floor for the same. Allergies/Medications Allergies: Coded Allergies: No Known Allergies (12/09/16) Home Med list Atorvastatin Calcium 80 MG TABLET 1 TAB PO DAILY CHOLESTEROL (Reported) Atropine Sulfate 1 % DROPS 1 DROP OS EOD LEFT EYE (Reported) Brimonidine Tartrate/Timolol (Combigan Eye Drops) 0.2 %-0.5 % DROPS 1 DROP OP BID BOTH EYES (Reported) Cephalexin 750 MG CAPSULE 1 CAP PO 4XDAILY ANTIBIOTIC (Reported) Dabigatran Etexilate Mesylate (Pradaxa 150 MG) 150 MG CAPSULE 1 CAP PO BID BLOOD THINNER (Reported) Fenofibrate Nanocrystallized (Tricor) 145 MG TABLET 1 TAB PO DAILY CHOLESTEROL /TRIGLYCERIDES (Reported) Glucosam/Chond/Hyalu/Cf Borate (Move Free Joint Health Tablet) (Unknown Strength ) TABLET (Unknown Dose) PO AD SUPPLEMENT (Reported) Insulin Glargine,Hum.rec.anlog (Lantus Solostar) (Unknown Strength) INSULN.PEN (Unknown Dose) SC DAILY DM (Reported) Mesalamine (Asacol Hd) 800 MG TABLET.DR 2 TAB PO BID GI (Reported) [place]-3/Dha/Epa/Fish Oil (Fish Oil 1,000 MG Softgel) (Unknown Strength) CAPSULE (Unknown Dose) PO DAILY SUPPLEMENT (Reported) Potassium Chloride 20 MEQ TAB.ER.PRT 1 TAB PO DAILY SUPPLEMENT (Reported) Silver Sulfadiazine (Silvadene) 1 % CREAM..G. 1 KEE TOP BID BILATERAL SHINS ( Reported) apply to affected area(s) Torsemide 100 MG TABLET 0.5 TAB PO DAILY DIURETIC (Reported) Valsartan/Hydrochlorothiazide (Valsartan-Hctz 320-25 MG Tab) 320 MG-25 MG TABLET 1 TAB PO DAILY BP (Reported) Past History Travel History Traveled to [place] past 21 day No Medical History Neurological: NONE EENT: NONE Cardiovascular: AFIB, CAD, hypertension, hyperlipidemia Respiratory: NONE Gastrointestinal: NONE Hepatic: NONE Renal: NONE Musculoskeletal: BLE EXTREMITY INFECTION Psychiatric: NONE Endocrine: diabetes Blood Disorders: NONE Cancer(s): NONE MISSILE TECHNICIAN/Reproductive: NONE Surgical History Surgical History: non-contributory Past Family/Social History Psychosocial History Smoking Status: Former Smoker ETOH Use: heavy use Illicit Drug Use: denies illicit drug use Review of Systems Review of Systems Constitutional: Reports: see HPI. Exam & Diagnostic Data Last 24 Hrs of Vital Signs/I&O Vital Signs Date Time Temp Pulse Resp B/P B/P Pulse O2 O2 Flow FiO2 Mean Ox Delivery Rate 12/09 2324 96.9 62 14 130/56 100 Room Air 12/09 2301 81 18 138/88 12/09 2044 96.9 65 14 128/58 100 Room Air 12/09 1823 97.4 65 15 135/61 100 Room Air Room Air 12/09 1804 100 Room Air Room Air 12/09 1648 55 15 108/57 100 Room Air Room Air 12/09 1605 97.6 56 94/54 Physical Exam General Appearance Alert, Oriented X3, Cooperative Skin BREAKDOWN ON B/L SHINS, CHRONIC VENOUS STASIS CHANGES, ULCER ON BUTTOCK HEENT Atraumatic, EOMI, RIGHT PUPIL FIXED AT 2 MM, DRY BLOOD ON LIPS AND NASAL MUCOSA Cardiovascular Normal S1, Normal S2, IRREGULAR RATE AND RHYTHM Lungs Clear to Auscultation, Normal Air Movement Abdomen Normal Bowel Sounds, Soft, No Tenderness Extremities No Clubbing, No Cyanosis, No Edema, Normal Pulses, B/L SHINS WITH VENOUS ULCER CHANGES Rectal PATIENT REFUSED Last 24 Hrs of Labs/Lee: Laboratory Tests 12/09/162152: Urinalysis LIGHT H, Urine Color YEL, Urine Clarity CLEAR, Urine pH 6.0, Ur Specific [place] 1.015, Urine Protein NEG, Urine Ketones NEG, Urine Nitrite NEG, Urine Bilirubin NEG, Urine Urobilinogen 0.2, Ur Leukocyte Esterase NEG, Ur Microscopic SEDIMENT EXAMINED, Urine RBC 1-3, Ur Epithelial Cells RARE, Urine Mucus FEW, Urine Hemoglobin TRACE-INTACT H, Urine Glucose NEG 12/09/16 1945: Lactic Acid 1.2 12/09/16 1750: pH 7.34 L, pCO2 22 L, pO2 110 H, HCO3 12 L, ABG O2 Sat (Measured) 97.0, P-50 (Temp Corrected) N, Carboxyhemoglobin 0.3 L, O2 Concentration % R/A, Temperature 97.6, Phlebotomy Draw Site RIGHT BRACHIAL 12/09/16 1635: Ammonia 17 12/09/16 1635: Anion Gap 23 H, Estimated GFR 7 L, BUN/Creatinine Ratio 27.3 H, Glucose 123 H, Lactic Acid 4.6 H, Calcium 9.5, Magnesium 3.1 H, Total Bilirubin 0.8, AST 51, ALT 49, Alkaline Phosphatase 46, Troponin I 0.25 *H, Total Protein 6.5, Albumin 3.5, Globulin 3.0, Albumin/Globulin Ratio 1.2, Vitamin B12 639, Folate 4.8, TSH &T3 &Free T4 Intrp 3.780, PT 57.2 *H, INR 5.54 *H, APTT 102 *H, CBC w Diff NO MAN DIFF REQ, RBC 2.61 L, MCV 92.8, MCH 30.6, RDW 17.4 H, MPV 9.8, Gran % 90.6 H, Lymphocytes % 3.5 L, Monocytes % 5.2, Eosinophils % 0.3, Basophils % 0.4, Absolute Granulocytes 11.3 H, Absolute Lymphocytes 0.4 L, Absolute Monocytes 0.7 H, Absolute Eosinophils 0, Absolute Basophils 0, PUBS MCHC 33.0, Serum Alcohol < 10.0, Acetone Level NEGATIVE Microbiology 12/09 1944 BLOOD: Blood Culture - RECD 12/09 1634 BLOOD: Blood Culture - RECD Diagnostic Data EKG Results Rate 55, QRS 104, QTC 394 Atrial fibrillation Other Results PATIENT: JENNIFER TABARES PRESENT AGE: 80 PATIENT ACCOUNT NO: [id number] : 35 LOCATION: [facility] ORDERING PHYSICIAN: DIVYA POLLOCK SERVICE DATE: 12/09/16 EXAM TYPE: CAT - CT ABD & PELVIS W/O IV CONTRAS; CT CHEST WO IV CONTRAST EXAMINATION: CT CHEST WITHOUT IV CONTRAST CT ABDOMEN AND PELVIS WITHOUT IV CONTRAST CLINICAL INFORMATION: 80-year-old male status post fall. Abdominal pain. Evaluate for acute intrathoracic and abdominal process. COMPARISON: None TECHNIQUE: Noncontrast, multidetector CT imaging examination of the chest, abdomen and pelvis was performed. Axial images are displayed at 5 mm and 0.625 mm slice thickness. Coronal and sagittal reformatted images were generated at the technologist's workstation and submitted for review. DLP: 938 mGy-cm FINDINGS: CHEST - LUNGS and PLEURA: No pulmonary contusion, edema, pneumothorax or pleural effusion. Small, 0.3 cm calcified granuloma at the right lung apex. Minimal pulmonary emphysema. MEDIASTINUM: Atherosclerotic calcification of coronary arteries and thoracic aorta without aortic aneurysm. No mediastinal hematoma. The esophagus is unremarkable. LYMPHATICS: No pathologic sized axillary, hilar or mediastinal lymph nodes. CHEST WALL/BONES: There is an old, healed fracture of the right lateral seventh rib. No acute, displaced rib fractures. Thoracic vertebra have normal height and alignment. Diffuse idiopathic skeletal hyperostosis as manifest by flowing anterior ligament ossification of the degenerated thoracic spine. ABDOMEN AND PELVIS - HEPATOBILIARY: Liver has normal size and contour. Punctate calcification is seen in the right hepatic lobe. No noncontrast imaging evidence of hepatic laceration or perihepatic fluid collection. Gallbladder is unremarkable. PANCREAS: Unremarkable. SPLEEN: Unremarkable. ADRENAL GLANDS: Unremarkable. KIDNEYS, URETERS, BLADDER: There is likely a small, 0.7 cm cortical cyst of the interpolar left kidney. No nephrolithiasis or hydronephrosis. The ureters are normal in caliber. Urinary bladder is unremarkable. GASTROINTESTINAL TRACT: Stomach is unremarkable. Bowel loops are normal in caliber. The appendix is normal. Diverticulosis of the descending and proximal sigmoid colon without diverticulitis. No ascites or pneumoperitoneum. ABDOMINAL WALL: No acute findings. No hematoma or focal fluid collection. VASCULAR: There is extensive atherosclerotic calcification of the aorta and branch vessels. No aortic aneurysm. No retroperitoneal hematoma. LYMPH NODES: No pathologic sized lymph nodes within the abdomen or pelvis. PELVIC VISCERA: Prostate gland is unremarkable. No pelvic free fluid. OSSEOUS STRUCTURES: The lumbar vertebra have normal height and alignment. No acute fractures within anterior or posterior elements of the degenerated lumbar spine. The pelvic bones and proximal femurs are intact. IMPRESSION: 1. No acute traumatic pathology in the chest, abdomen or pelvis. 2. Atherosclerotic disease of coronary arteries and aorta without aortic aneurysm. No retroperitoneal hematoma. 3. Diverticulosis of the descending and sigmoid colon without diverticulitis. DICTATED BY: JAXON MARAVILLA MD DATE/TIME DICTATED:12/09/161799 HOSE CEMENTER:MARSHA DATE/TIME TRANSCRIBED:12/09/161799 CONFIDENTIAL, DO NOT COPY WITHOUT APPROPRIATE AUTHORIZATION. <Electronically signed in Other Vendor System> SIGNED BY: JAXON MARAVILLA MD 12/09/161812 PATIENT: JENNIFER TABARES PRESENT AGE: 80 PATIENT ACCOUNT NO: [id number] : 35 LOCATION: [facility] ORDERING PHYSICIAN: DIVYA POLLOCK SERVICE DATE: 12/09/16 EXAM TYPE: RAD - XRY-PORTABLE CHEST XRAY EXAMINATION: XR PORTABLE CHEST CLINICAL INFORMATION: Rule out pneumonia. Confusion. COMPARISON: None TECHNIQUE: Portable AP view of the chest was obtained. FINDINGS: Lungs are clear. No focal consolidation or mass. Normal pulmonary vascularity. No pleural effusion or pneumothorax. Cardiac silhouette is enlarged.. Regional skeleton intact. IMPRESSION: No acute pulmonary disease. Enlarged cardiac silhouette which may reflect cardiomegaly and/or pericardial effusion. DICTATED BY: NILDA MAYO MD DATE/TIME DICTATED:12/09/161726 HOSE CEMENTER:MARSHA DATE/TIME TRANSCRIBED:12/09/161726 CONFIDENTIAL, DO NOT COPY WITHOUT APPROPRIATE AUTHORIZATION. <Electronically signed in Other Vendor System> SIGNED BY: NILDA MAYO MD [id number] PATIENT: JENNIFER TABARES PRESENT AGE: 80 PATIENT ACCOUNT NO: [id number] : 35 LOCATION: [facility] ORDERING PHYSICIAN: DIVYA POLLOCK SERVICE DATE: 12/09/16 EXAM TYPE: CAT - CT CERV SPINE WO IV CONTRAST; CT HEAD WO IV CONTRAST; CT MAXILLOFACIAL W/O CON EXAMINATION: CT HEAD WITHOUT CONTRAST CT FACIAL BONES WITHOUT CONTRAST CLINICAL INFORMATION: Unwitnessed fall, pain COMPARISON: None. TECHNIQUE: Contiguous axial imaging was performed from the skull base to vertex without intravenous administration of contrast. In addition, helical noncontrast CT imaging was acquired through the facial bones and source images were reviewed along with axial reconstructions and sagittal and coronal MPRs. DLP: 1549.8 mGy-cm FINDINGS: HEAD: No intracranial mass, hemorrhage, or midline shift is visualized. No extra-axial collections are identified. The ventricles and sulci are mildly appropriate consistent with stated age. There is an area of hypoattenuation within the left posterior occipital region which extends to the inner table. The adjacent sulci are normal. A similar but much less prominent findings noted on the right side. In addition, there is mild diffuse hypoattenuation within the periventricular and subcortical white matter. Incidentally noted scattered punctate calcifications throughout the calvarium. These are present along the sulci and are predominately left sided. Moderate to significant calcifications involving the cavernous portions of the carotid arteries. There is mild mucosal thickening within the left ethmoid air cells. Trace mucosal thickening is present within the right anterior ethmoid air cells. Mild circumferential mucosal thickening present within the left maxillary sinus. The right maxillary sinus and sphenoid sinuses are well aerated. FACIAL BONES: There is no evidence of an acute facial bone fracture. The orbits are symmetric and intact. No significant dental disease is visualized. Soft tissues are unremarkable. IMPRESSION: No acute intracranial process or discrete facial bone fracture. Moderate chronic small vessel ischemic changes. 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 EXAMINATION: CT CERVICAL SPINE WITHOUT AND WITH CONTRAST CLINICAL INFORMATION: Unwitnessed fall, pain COMPARISON: None. TECHNIQUE: Multidetector CT imaging of the cervical spine was performed and displayed in axial, coronal and sagittal reformations DLP: See above FINDINGS: No prevertebral soft tissue swelling. No acute fracture or subluxation. The lateral masses of C1 are normally located relative to the odontoid process. Well-corticated fragments of bone are identified at the anterior and inferior corners of the C3, C4 and C5 vertebral bodies. Bridging osteophytes are present at the C5-C6, C6-C7 and C7-T1 levels. Small posterior osteophytes are present at the C6-C7 and C7-T1 levels. There is mild loss in height of the intervertebral disc space at the C3-C4 and C5-C6 levels. Surgical clips noted in the region of the carotid bulb likely from prior surgery. The lung apices are clear. IMPRESSION: No acute fracture or subluxation of the cervical spine. Mild to moderate spondylosis of the cervical spine. DICTATED BY: PARVIZ TINOCO MD DATE/TIME DICTATED:12/09/161758 HOSE CEMENTER:MARSHA DATE/TIME TRANSCRIBED:12/09/161758 CONFIDENTIAL, DO NOT COPY WITHOUT APPROPRIATE AUTHORIZATION. <Electronically signed in Other Vendor System> SIGNED BY: PARVIZ TINOCO MD 12/09/16 5536 Assessment/Plan Assessment: Assessment- 1. Positive troponin 0.25, likely secondary to acute renal failure versus demand ischemia 2. RAQUEL on CKD (BUN today is 202, creatinine 7.4; baseline creatinine is 1.3) 3. Hyperkalemia, 5.5 4. Leukocytosis of 12,500, no bands; likely reactive 5. Supratherapeutic INR 5.54; he is on Pradaxa and recent antibiotic use ( Pradaxa normally is cleared by the kidneys given his renal failure this could also be contributing factor to his supratherapeutic note) 6. Anion gap metabolic acidosis, initial gap of 23; secondary to alcohol use 7. Lactic acidosis initially lactic acid 4.6, after hydration now is 1.2 8. Hypotension, resolved 9. History of hypertension 10. History of hyperlipidemia 11. Diabetes mellitus 12. Peripheral vascular disease 13. Lower GI bleed, possibly secondary to hemorrhoids per patient. He refuses to have a digital rectal examination 14. Chronic daily alcohol use Plan- - Telemetry admission - Vitals per protocol - Trend troponin and EKG - Cardiology evaluation in the morning - Echocardiogram - IV fluid hydration - Check all labs again in the morning - Add on Vitamin D, folic acid, vitamin B12, CPK to admission labs - Place on CIWA protocol, cessation counseled - Hold Pradaxa and by mouth Keflex, recheck INR in the morning - Hold antihypertensives, Bumex (hold all nephrotoxic meds) - Guaiac all stools - Consider renal consult in the morning if creatinine does not improve, also consider GI consult in the morning H&H drops and patient shows sign of lower GI bleed - Accu-Cheks - Diabetic diet - Short acting and long acting insulin - Wound care consult - IV fluid hydration - Pain pathway - Hold off on pharmacological DVT prophylaxis for now given that his INR is supratherapeutic - DVT prophylaxis will be addressed with Pradaxa once it is restarted - Full code As Ranked By This Provider Problem List: 1. Epistaxis 2. Hyperkalemia 3. Elevated troponin 4. Anemia Qualifiers Anemia type: unspecified type Qualified Code: D64.9 - Anemia, unspecified 5. Acute renal failure Qualifiers Acute renal failure type: unspecified Qualified Code: N17.9 - Acute kidney failure, unspecified Core Measures/Miscellaneous Acute Coronary Syndrome ACS Diagnosis: No Cerebrovascular Accident CVA/TIA Diagnosis: No Congestive Heart Failure CHF Diagnosis: No Venous Thromboembolism VTE Risk Factors: Age > 40 No [facility] VTE prophylaxis d/t: No contraindications No VTE Pharm Prophylaxis d/t: Medical contraindication (SUPRATHERAPEUTIC INR), Renal impairment VTE Diagnosis: No VTE Type: NONE VTE Confirmed by (Test): NONE Severe Sepsis Severe Sepsis Present: No Septic Shock Septic Shock Present: No Miscellaneous Documentation Attending Case Discussed With: DANIEL RUIZ MD Primary Care Physician: KHOA ABBASI MD Patient sees these Specialists DR. CLEMONS (PHARMACEUTICAL OPERATOR) Level of Patient Care: Telemetry Resident Review Statement Resident Statement: examined this patient, discussed with wildlife biology internship DANIEL RUIZ 12/10/16 0154: Attending Review Statement Attending Statement Attending MD Statement: examined this patient, discuss w/resident/PA/RETAIL SUPPORT ASSOCIATE, agreed w/resident/PA/RETAIL SUPPORT ASSOCIATE, discussed with family, reviewed EMR data (avail), reviewed images, amended to note Attending Assessment/Plan: CC : Epistaxis PMH: DM, HTN, HLD, A. fib, PVD, HF, CKD Patient comes to ER immediately for epistaxis which started yesterday, was persistent over day then resolved, again started today. By the time he came to ER it had stopped. Meanwhile patient also had multiple complaints including but not limited to headache, dark-colored stools, dizziness while position changing, chronic nonhealing lower extremity wounds, severe lower extremity pain, decreased oral intake, multiple falls with trauma to lower extremities. Family mentions that he consumes alcohol heavily, 6 beers daily and 1-2 glasses of wine. Patient had been recently treated with by mouth antibiotics for lower extremity infection, ? Recent change in his diuretic. Family denies any fever or chills, ? Change of diuretics recently. Vitals: Afebrile, pulse in 50s, RR 15, blood pressure at presentation 94/54 improved to 135/61 after 2 L and S, saturating well on room air. On exam: A O 3, cooperative, talks incoherent in between, mild respiratory distress, neck supple, JVD normal, no lymphadenopathy, mucosa dry, crusted blood on lips, dried blood clots and nostrils, no pharyngeal congestion, pupils are unequal, right smaller than left, right not much reactive, no evidence of any eye redness, no focal neurological deficit, no dependent edema, 2 ulcers on left lower extremity, 1 ulcer on the right lower extremity, chronic nonhealing, yellowish slough, does not appear infected, tender to touch, normal temperature, no redness CVS: S1-S2, irregular RS: Clear to auscultate bilaterally. Abdomen: Soft, NT, ND, bowel sounds present. Labs: WBC 12.5 with neutrophils 90%, hemoglobin 8.0, platelet 329, sodium 140, potassium 5.5, chloride 106, bicarbonate 11, BUN 202, creatinine 7.4, glucose 123, calcium 9.5, anion gap 23, lactate 4.6, LFT unremarkable, troponin 0.25, INR 5.54, UA unremarkable, negative alcohol level ABG: Units 7.34/22/110/[address] chest, CT abdomen and pelvis, CT maxillofacial, CT head, CT cervical spine, x -ray chest was obtained. 1. No acute traumatic pathology in the chest, abdomen or pelvis. 2. Atherosclerotic disease of coronary arteries and aorta without aortic aneurysm. No retroperitoneal hematoma. 3. Diverticulosis of the descending and sigmoid colon without diverticulitis. 4. No acute intracranial process or discrete facial bone fracture. Moderate chronic small vessel ischemic changes. 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 5. No acute fracture or subluxation of the cervical spine. Mild to moderate spondylosis of the cervical spine. EKG: A. fib A and P Patient presented with epistaxis which is stopped for now, his INR and APTT are elevated, probably secondary to Pradaxa, acute on chronic renal failure may have contributed to elevated Pradaxa levels, increasing coags. Acute on chronic renal failure appears secondary to volume depletion, with poor oral intake and diuresis. Patient has been falling multiple times probably secondary to peripheral neuropathy versus alcoholism. He has chronic nonhealing wounds on bilateral lower extremities, which do not appear infected. His troponin is elevated probably troponin leak secondary to RAQUEL, but he was hypotensive at presentation, demand ischemia is a possibility. He has significant anemia with chronic black colored stools, patient refused rectal exam. # Epistaxis # Transient hypotension #Acute on chronic renal failure # Coagulopathy secondary to Pradaxa # History of A. fib # Elevated troponins : NSTEMI Vs demand Vs RAQUEL # Recurrent falls # Chronic nonhealing bilateral lower extremity wounds # Anemia # High anion gap and non-anion gap acidosis : Secondary to Lactic acidosis and acute kidney injury # History of alcoholism # Leukocytosis could be reactive # History of diabetes on insulin, history of hypertension # Anisocoria appears chronic - Admit to telemetry at least for overnight - Continuous telemetry monitoring - Close vital monitoring - Continue IV NS at 100 mL per hour, - Trend troponin, EKG - Check iron studies, B12 level, folate level - Continue high doses thiamine, folic acid supplementation - Ativan 1 mg by mouth twice a day scheduled and when necessary Ativan according to CIWA score. - Stool guaiac - If patient bleeds again, may require FFP - Repeat CBC, BMP in a.m. - Blood cultures, UA urine cultures, urine tox screen - Fall precautions - Wound care consult - Inform cardiology about patient being here - Hold diuretic's, valsartan, hydrochlorothiazide, Pradaxa - Supra therapeutic INR for DVT prophylaxis - Continue sliding scale insulin short-acting for diabetes TTS 30 min
--- NOTE | 2016-12-10 01:57 | Admission Certification ---
Admission Certification Certification Statement - As attending physician, I certify that at the time of - admission, based on clinical presentation, severity of - symptoms, need for further diagnostic testing and - therapeutic interventions, and risk of adverse outcomes - without in-hospital treatment, in my clinical assessment, - this patient requires an acute hospital stay for a minimum - of two nights or longer. I have also considered psychsocial - factors such as support system, advanced age, financial - issues, cognitive issues, and failed out-patient treatments, - past re-admission history, safety of patient, and lack of - compliance as applicable. Specific rationale supporting this admission is: Coagulopathy, acute renal failure, elevated troponin
[2016-12-10 02:20] VITALS: BP 100/60
--- NOTE | 2016-12-10 02:36 | NUR ---
ADMITTED AN 80 YEAR OLD MALE WHO CAME TO THE ER BECAUSE OF NOSE BLEED, NACK AND BACK HURTING. BUN 202/ CREAT 7.4. TROPONIN 0.25. PT IS IN AFIB 64, MANUAL BP 100/60. VOIDING IN GOOD AMTS. SATURATION ON RA 95%, LUNGS SOUND CLEAR.
[2016-12-10 05:59] LABS: ABSOLUTE BASOPHIL COUNT 0 /CUMM (0.0-0.2); ABSOLUTE EOSINOPHIL COUNT 0.2 /CUMM (0.0-0.7); ABSOLUTE GRANULOCYTE CT 7.7 /CUMM (1.4-6.5); ABSOLUTE LYMPH COUNT 0.5 /CUMM (1.2-3.4); ABSOLUTE MONOCYTE COUNT 0.5 /CUMM (0.10-0.60); BASOPHIL % 0.3 % (0.0-2.0); EOSINOPHIL % 2.3 % (0-5); GRANULOCYTE % 86.1 % (42.2-75.2); MEAN CORPUSCULAR HGB 31.1 PG (27.0-31.0); MEAN CORPUSCULAR HGB CONC 33.5 G/DL (33.0-37.0); MEAN PLATELET VOLUME 8.8 FL (7.4-10.4); PLATELET COUNT 211 /CUMM (130-400); RBC DISTRIBUTION WIDTH 17.4 % (11.5-14.5); RED BLOOD CELL CT 2.02 /CUMM (4.70-6.10)
[2016-12-10 06:00] VITALS: BP 124/60
[2016-12-10 06:23] LABS: HEMATOCRIT 18.7 % (42-52)
[2016-12-10 06:26] LABS: PT 57.3 SEC (9.4-12.5)
--- NOTE | 2016-12-10 07:12 | PN- Resident CRCU ---
Subjective HPI/CRCU Issues: Mr. Glasgow was seen and examined this morning he is alert and oriented 2. He currently endorses no pain or discomfort and is unsure as to the reason why he has been admitted. An Additional conversation with the patient's daughter Ashlyn revealed that the patient over the last few weeks has had a gradual deterioration in his overall health. She endorses that the patient has had multiple falls. She also sates that there has been the development of bilateral lower extremity foot ulcers owing to mechanical trauma with the patient's walker. The daughter states that the patient lives at home with his girlfriend of about 40 years. The patient went to the house of his son on 12/04/2016, for [employer] lunch. He was in his normaly state of health although appeared more weak than normal. His son also reports that the patients gait had changed. On 12/09/2016, the daughter of the patient Ashlyn went to the patient's house on and noted that Mr. Glasgow was profoundly weak and had multiple episodes of epistaxis over the last 48 hours . She subsequently brought Mr Glasgow to the ED for an additional work up. Objective Vital Signs & I&O Last 8 Hrs of Vitals and I&O: Intake & Output 12/10 1600 Intake Total 2200 Output Total 800 Balance 1400 Intake, Blood 600 Product Intake, IV 1200 Intake, Oral 400 Number 1 Bowel Movements Output, Urine 800 Exam General Appearance: well developed/nourished, no apparent distress, alert, anxious Neck: normal inspection Respiratory: normal breath sounds Cardiovascular: irregularly irregular Gastrointestinal: normal bowel sounds, soft, non-tender Extremities: normal inspection, normal capillary refill, Multiple Bilatteral Lower Extemity Ulcers. Stage II ulcers noted in the Coccxy. Large Contusion noted on the patients Right Lateral Thigh. Cranial Nerves: normal hearing, normal speech, PERRL Skin: intact Current Medications: Current Medications Sig/Marco Start time Last Medication Dose Route Stop Time Status Admin Acetaminophen 650 MG Q6P PRN 12/10 0015 AC PO Acetaminophen/ 1 TAB Q6P PRN 12/10 0015 AC Hydrocodone Bitart PO Atorvastatin Calcium 80 MG 1700 12/10 1700 AC 12/10 PO 1734 Dextrose/Sodium 1,000 ML Q6H 12/10 1430 DC Chloride IV Fenofibrate 145 MG DAILY 12/10 1000 CAN PO Folic Acid 1 MG DAILY 12/10 1000 AC 12/10 PO 1200 Heparin Sodium 5,000 UNIT Q8 12/10 0600 CAN (Porcine) SC Hydromorphone HCl 1 MG Q6P PRN 12/10 0015 AC IV Influenza Virus 0.5 ML ONCE ONE 12/10 1215 DC 12/10 Vaccine IM 12/10 1216 1723 Insulin Aspart 0 TIDAC 12/10 0800 AC SC Insulin Detemir 10 UNITS DAILY 12/10 1000 AC 12/10 SC 1200 Lorazepam 1 MG BID 12/10 1000 AC PO Lorazepam 0 Q1P PRN 12/10 0015 AC IV Multivitamins 1 TAB DAILY 12/10 1000 AC 12/10 PO 1000 Pantoprazole Sodium 40 MG DAILY 12/10 1519 AC 12/10 IV 1724 Sodium Bicarbonate 75 MEQ Q6H 12/10 1445 AC 12/10 Dextrose/Sodium 1,000 ML IV 1723 Chloride Sodium Chloride 1,000 ML .Q6H40M 12/09 2014 DC 12/10 IV 0425 Sodium Chloride 1,000 ML BOLUS ONE 12/09 1815 DC 12/09 IV 12/09 2013 1847 Sodium Chloride 1,000 ML ONCE ONE 12/09 1715 DC 12/09 IV 12/10 0114 1724 Thiamine HCl 100 MG DAILY 12/10 1000 AC 12/10 PO 1200 Impression/Plan Impression/Problem List Impression: Mr. Glasgow is an 80-year-old gentleman with past medical history of hypertension, hyperlipidemia, atrial fibrillation on Pradaxa, diabetes mellitus, former nicotine use quit over 20 years ago, daily alcohol use drinks (one unit per day) , who presented to the emergency department following multiple episodes of epistaxis and multiple recurrent falls. He was noted to have severe anemia and metabolic acidosis. Patient is currently admitted to the ICU (as a telemetry hold) #Acute kidney injury, metabolic acidosis and uremia. Likely the result of combination of new medications thiazide diuretic and loop diuretic in combination with recent blood loss and hypotension. Improvements in BUN (202-->191) and creatinine (7.4-->5.8) noted. Renal consultation obtained. Continue IV hydration: Sodium Bicarbonate 75 meq D5W1/2 NS 1000mL #Anemia due to epistaxis. Patient's H&H this morning was 6.3 and 18.8 He was transfused 2 units PRBCs. He has responded well and will monitor a CBC 12/11/2016. If H&H continue to drop we will consider GI consult in a.m. #Elevated troponin Likely due to demand ischemia and a component of RAQUEL. Troponins trended to the peak of: 0.25-->0.24-->0.24 #History Of atrial fibrillation Hold Pradaxa for now. Consider resuming once renal function has normalized. #History of diabetes Early on Levemir 10 units daily. Continue NovoLog sliding scale. Finger stick: 100-->130 #Multiple Bilaterral Avulsions Anterior Lower Shins Wound care consult 12/11/2016 Consider social work consult in a.m. #DVT prophylaxis Hold Pradaxa for now. #Code: Full code Problem List: 1. Acute renal failure 2. Anemia 3. Elevated troponin 4. Hyperkalemia 5. Epistaxis Pain Ratin Tomorrow's Labs & Rationales: CBC ICU Bundle Plan DVT/Prophylaxis: pharmacological (Currently On Hold)
[2016-12-10 08:00] VITALS: BP 130/70
[2016-12-10 08:37] LABS: ABSOLUTE BASOPHIL COUNT 0 /CUMM (0.0-0.2); ABSOLUTE EOSINOPHIL COUNT 0.2 /CUMM (0.0-0.7); ABSOLUTE LYMPH COUNT 0.5 /CUMM (1.2-3.4); ABSOLUTE MONOCYTE COUNT 0.6 /CUMM (0.10-0.60)
[2016-12-10 08:56] LABS: ABSOLUTE GRANULOCYTE CT 7.5 /CUMM (1.4-6.5); BASOPHIL % 0.4 % (0.0-2.0); EOSINOPHIL % 2.3 % (0-5); MEAN CORPUSCULAR HGB 30.6 PG (27.0-31.0); MEAN CORPUSCULAR HGB CONC 32.9 G/DL (33.0-37.0); MEAN CORPUSCULAR VOLUME 93.1 FL (80.0-94.0); MEAN PLATELET VOLUME 9.3 FL (7.4-10.4); PLATELET COUNT 205 /CUMM (130-400); RED BLOOD CELL CT 2.02 /CUMM (4.70-6.10); WHITE BLOOD CELL COUNT 8.8 /CUMM (4.8-10.8)
[2016-12-10 09:06] LABS: HEMATOCRIT 18.8 % (42-52)
[2016-12-10 09:36] LABS: GRANULOCYTE % 85.6 % (42.2-75.2)
--- NOTE | 2016-12-10 12:02 | Cons- Cardiology ---
General Information and HPI Consulting Request Date of Consult: 12/10/16 Requested By: DANIEL RUIZ MD Reason for Consult: Atrial fibrillation, epistaxis, acute kidney injury Source of Information: patient, old records Exam Limitations: no limitations History of Present Illness: The patient is an 80-year-old gentleman with a past medical history of hypertension, and in atrial fibrillation, diabetes mellitus and hyperlipidemia. He presents to our emergency room with an episode of epistaxis as well as with recent appetite and weakness over the past several weeks. Of note, proximally 6 weeks ago, the patient sustained multiple avulsions to his lower extremities following a fall with a walker. At that time, he has well had severe increased peripheral edema and was started on torsemide for his edema as well as Keflex for the avulsions. The patient was to have completed 2 courses of 3 days of torsemide; however continued with the same. On arrival to the emergency room, the patient was noted to be in acute kidney injury with a markedly elevated BUN and creatinine. An anion gap acidosis was as well noted as well as mildly increased troponin isoenzymes. The patient has well felt in comparison to his baseline, and was mildly confused.. He had multiple ecchymosis and was as well noted to be Allergies/Medications Allergies: Coded Allergies: No Known Allergies (12/09/16) Home Med List: Atorvastatin Calcium 80 MG TABLET 1 TAB PO DAILY CHOLESTEROL (Reported) Atropine Sulfate 1 % DROPS 1 DROP OS EOD LEFT EYE (Reported) Brimonidine Tartrate/Timolol (Combigan Eye Drops) 0.2 %-0.5 % DROPS 1 DROP OP BID BOTH EYES (Reported) Cephalexin 750 MG CAPSULE 1 CAP PO 4XDAILY ANTIBIOTIC (Reported) Dabigatran Etexilate Mesylate (Pradaxa 150 MG) 150 MG CAPSULE 1 CAP PO BID BLOOD THINNER (Reported) Fenofibrate Nanocrystallized (Tricor) 145 MG TABLET 1 TAB PO DAILY CHOLESTEROL /TRIGLYCERIDES (Reported) Glucosam/Chond/Hyalu/Cf Borate (Move Free Joint Health Tablet) (Unknown Strength ) TABLET (Unknown Dose) PO AD SUPPLEMENT (Reported) Insulin Glargine,Hum.rec.anlog (Lantus Solostar) (Unknown Strength) INSULN.PEN (Unknown Dose) SC DAILY DM (Reported) Mesalamine (Asacol Hd) 800 MG TABLET.DR 2 TAB PO BID GI (Reported) [place]-3/Dha/Epa/Fish Oil (Fish Oil 1,000 MG Softgel) (Unknown Strength) CAPSULE (Unknown Dose) PO DAILY SUPPLEMENT (Reported) Potassium Chloride 20 MEQ TAB.ER.PRT 1 TAB PO DAILY SUPPLEMENT (Reported) Silver Sulfadiazine (Silvadene) 1 % CREAM..G. 1 KEE TOP BID BILATERAL SHINS ( Reported) apply to affected area(s) Torsemide 100 MG TABLET 0.5 TAB PO DAILY DIURETIC (Reported) Valsartan/Hydrochlorothiazide (Valsartan-Hctz 320-25 MG Tab) 320 MG-25 MG TABLET 1 TAB PO DAILY BP (Reported) Current Medications: Current Medications Sig/Marco Start time Last Medication Dose Route Stop Time Status Admin Acetaminophen 650 MG Q6P PRN 12/10 0015 AC PO Acetaminophen/ 1 TAB Q6P PRN 12/10 0015 AC Hydrocodone Bitart PO Atorvastatin Calcium 80 MG 1700 12/10 1700 AC PO Fenofibrate 145 MG DAILY 12/10 1000 CAN PO Folic Acid 1 MG DAILY 12/10 1000 AC PO Heparin Sodium 5,000 UNIT Q8 12/10 0600 CAN (Porcine) SC Hydromorphone HCl 1 MG Q6P PRN 12/10 0015 AC IV Insulin Aspart 0 TIDAC 12/10 0800 AC SC Insulin Detemir 10 UNITS DAILY 12/10 1000 AC SC Lorazepam 1 MG BID 12/10 1000 AC PO Lorazepam 0 Q1P PRN 12/10 0015 AC IV Multivitamins 1 TAB DAILY 12/10 1000 AC PO Sodium Chloride 1,000 ML .Q6H40M 12/09 2014 AC 12/10 IV 0425 Sodium Chloride 1,000 ML BOLUS ONE 12/09 1815 DC 12/09 IV 12/09 2013 1847 Sodium Chloride 1,000 ML ONCE ONE 12/09 1715 DC 12/09 IV 12/10 0114 1724 Thiamine HCl 100 MG DAILY 12/10 1000 AC PO Review of Systems Review of Systems: The review of systems is negative for chest pains, palpitations nor lightheadedness. Generalized weakness as well as epistaxis and ecchymosis is noted The remainder of the 14 point review of systems is noncontributory with the exception of above. Past History Travel History Traveled to [place] past 21 day No Medical History Neurological: NONE EENT: NONE Cardiovascular: AFIB, CAD, hypertension, hyperlipidemia Respiratory: NONE Gastrointestinal: NONE Hepatic: NONE Renal: NONE Musculoskeletal: BLE EXTREMITY INFECTION Psychiatric: NONE Endocrine: diabetes Blood Disorders: NONE Cancer(s): NONE BELT POLISHER/Reproductive: NONE Surgical History Surgical History: non-contributory Psychosocial History Where Do You Live? Home Smoking Status: Former Smoker ETOH Use: heavy use Illicit Drug Use: denies illicit drug use ECHO Results (as available) EF% 65 Exam & Diagnostic Data Vital Signs and I&O Vital Signs Date Time Temp Pulse Resp B/P B/P Pulse O2 O2 Flow FiO2 Mean Ox Delivery Rate 12/10 0846 Room Air Room Air 12/10 08 97.8 68 20 130/70 95 Nasal 2.0L Cannula 12/10 0706 95 Room Air 12/10 0600 68 18 124/60 12/10 0220 64 18 100/60 12/10 0220 64 20 100/60 12/10 0220 95 Room Air 12/10 0220 95 Room Air 12/09 2325 96.9 62 14 130/56 100 Room Air 12/09 2301 81 18 138/88 12/09 2045 96.9 65 14 128/58 100 Room Air 12/09 1823 97.4 65 15 135/61 100 Room Air Room Air 12/09 1804 100 Room Air Room Air 12/09 1648 55 15 108/57 100 Room Air Room Air 12/09 1605 97.6 56 94/54 Intake & Output 12/10 1600 12/10 0800 12/10 0000 12/09 1600 12/09 0800 12/09 0000 Intake Total 800 1000 Output Total 500 Balance 300 1000 Intake, IV 700 1000 Intake, Oral 100 0 Output, Urine 500 Patient 187 lb 192 lb Weight Weight Bed scale Reported by Patient Measurement Method Physical Exam: General: Nontoxic, no apparent distress. HEENT: Sclera and conjunctiva within normal limits, without xanthelasmas. Neck: Carotids 2+ without bruits. Respiratory: Scattered rhonchi, air movement is good, without accessory respiratory muscle use. Heart: Irregularly irregular rate and rhythm, without murmurs, without JVD. Abdomen: Soft, nontender, no masses, normoactive bowel sounds. Extremities: Multiple lower extremity avulsions, demonstrating significantly improved healing in comparison to previous, multiple ecchymoses Neuro: Nonfocal exam, strength, 5 out of 5 Skin: Multiple avulsions and ecchymosis as above. Psych: Mood and affect: Normal Labs/Lee Results: Laboratory Tests 12/10 12/10 0828 0523 Chemistry Sodium (137 - 145 mmol/L) 141 Potassium (3.5 - 5.1 mmol/L) 4.5 Chloride (98 - 107 mmol/L) 112 H Carbon Dioxide (22 - 30 mmol/L) 12 L Anion Gap (5 - 16) 18 H BUN (9 - 20 mg/dL) 191 *H Creatinine (0.7 - 1.2 mg/dL) 5.8 *H Estimated GFR (>60 ml/min) 9 L BUN/Creatinine Ratio (7 - 25 %) 32.9 H Creatine Kinase (55 - 170 U/L) 463 H Troponin I (<0.11 ng/ml) 0.24 *H Coagulation PT (9.4 - 12.5 SEC) 57.3 *H INR (0.90 - 1.17) 5.55 *H Hematology CBC w Diff NO MAN DIFF REQ NO MAN DIFF REQ WBC (4.8 - 10.8 /CUMM) 8.8 9.0 RBC (4.70 - 6.10 /CUMM) 2.02 L 2.02 L Hgb (14.0 - 18.0 G/DL) 6.2 *L 6.3 *L Hct (42 - 52 %) 18.8 *L 18.7 *L MCV (80.0 - 94.0 FL) 93.1 93.0 MCH (27.0 - 31.0 PG) 30.6 31.1 H RDW (11.5 - 14.5 %) 17.0 H 17.4 H Plt Count (130 - 400 /CUMM) 205 211 MPV (7.4 - 10.4 FL) 9.3 8.8 Gran % (42.2 - 75.2 %) 85.6 H 86.1 H Lymphocytes % (20.5 - 51.1 %) 5.2 L 5.4 L Monocytes % (1.7 - 9.3 %) 6.5 5.9 Eosinophils % (0 - 5 %) 2.3 2.3 Basophils % (0.0 - 2.0 %) 0.4 0.3 Absolute Granulocytes (1.4 - 6.5 /CUMM) 7.5 H 7.7 H Absolute Lymphocytes (1.2 - 3.4 /CUMM) 0.5 L 0.5 L Absolute Monocytes (0.10 - 0.60 /CUMM) 0.6 0.5 Absolute Eosinophils (0.0 - 0.7 /CUMM) 0.2 0.2 Absolute Basophils (0.0 - 0.2 /CUMM) 0 0 PUBS MCHC (33.0 - 37.0 G/DL) 32.9 L 33.5 12/10 12/09 12/09 0100 2153 1945 Chemistry Lactic Acid (0.7 - 2.1 mmol/L) 1.2 Troponin I (<0.11 ng/ml) 0.24 *H Urines Urinalysis LIGHT H Urine Color (YEL,AMB,STR) YEL Urine Clarity (CLEAR) CLEAR Urine pH (5.0 - 8.0) 6.0 Ur Specific [place] (1.001 - 1.035) 1.015 Urine Protein (NEG,<30 MG/DL) NEG Urine Ketones (NEG) NEG Urine Nitrite (NEG) NEG Urine Bilirubin (NEG) NEG Urine Urobilinogen (0.1 - 1.0 EU/dl) 0.2 Ur Leukocyte Esterase (NEG) NEG Ur Microscopic SEDIMENT EXAMINED Urine RBC (0 - 5 /HPF) 1-3 Ur Epithelial Cells (NONE,FEW) RARE Urine Mucus (FEW,NONE) FEW Urine Hemoglobin (NEG) TRACE-INTACT H Urine Glucose (N MG/DL) NEG 12/09 12/09 1750 1635 Blood Gas pH (7.35 - 7.45 PH) 7.34 L pCO2 (35 - 45 TORR) 22 L pO2 (80 - 100 TORR) 110 H HCO3 (21 - 28 MEQ/L) 12 L ABG O2 Sat (Measured) (>96.0 %) 97.0 P-50 (Temp Corrected) N Carboxyhemoglobin (1.5 - 5.0 %) 0.3 L O2 Concentration % R/A Temperature (97.0 - 100.0 FARH) 97.6 Chemistry Ammonia (9 - 30 umol/L) 17 Miscellaneous Phlebotomy Draw Site RIGHT BRACHIAL 12/09 1635 Chemistry Sodium (137 - 145 mmol/L) 140 Potassium (3.5 - 5.1 mmol/L) 5.5 H Chloride (98 - 107 mmol/L) 106 Carbon Dioxide (22 - 30 mmol/L) 11 L Anion Gap (5 - 16) 23 H BUN (9 - 20 mg/dL) 202 *H Creatinine (0.7 - 1.2 mg/dL) 7.4 *H Estimated GFR (>60 ml/min) 7 L BUN/Creatinine Ratio (7 - 25 %) 27.3 H Glucose (65 - 99 mg/dL) 123 H Hemoglobin A1c (4.2 - 5.8 %) Pending Lactic Acid (0.7 - 2.1 mmol/L) 4.6 H Calcium (8.4 - 10.2 mg/dL) 9.5 Magnesium (1.6 - 2.3 mg/dL) 3.1 H Total Bilirubin (0.2 - 1.3 mg/dL) 0.8 AST (17 - 59 U/L) 51 ALT (21 - 72 U/L) 49 Alkaline Phosphatase (< 127 U/L) 46 Creatine Kinase (55 - 170 U/L) 556 H Troponin I (<0.11 ng/ml) 0.25 *H Total Protein (6.3 - 8.2 g/dL) 6.5 Albumin (3.5 - 5.0 g/dL) 3.5 Globulin (1.9 - 4.2 gm/dL) 3.0 Albumin/Globulin Ratio (1.1 - 2.2 %) 1.2 Vitamin B12 (239 - 931 pg/mL) 639 25-OH Vitamin D Total (30 - 100 ng/ml) 7.4 L Folate (2.76 - 20.0 ng/mL) 4.8 TSH &T3 &Free T4 Intrp (0.27 - 4.20 uIU/mL) 3.780 Coagulation PT (9.4 - 12.5 SEC) 57.2 *H INR (0.90 - 1.17) 5.54 *H APTT (25 - 37 SEC) 102 *H Hematology CBC w Diff NO MAN DIFF REQ WBC (4.8 - 10.8 /CUMM) 12.5 H RBC (4.70 - 6.10 /CUMM) 2.61 L Hgb (14.0 - 18.0 G/DL) 8.0 L Hct (42 - 52 %) 24.3 L MCV (80.0 - 94.0 FL) 92.8 MCH (27.0 - 31.0 PG) 30.6 RDW (11.5 - 14.5 %) 17.4 H Plt Count (130 - 400 /CUMM) 329 MPV (7.4 - 10.4 FL) 9.8 Gran % (42.2 - 75.2 %) 90.6 H Lymphocytes % (20.5 - 51.1 %) 3.5 L Monocytes % (1.7 - 9.3 %) 5.2 Eosinophils % (0 - 5 %) 0.3 Basophils % (0.0 - 2.0 %) 0.4 Absolute Granulocytes (1.4 - 6.5 /CUMM) 11.3 H Absolute Lymphocytes (1.2 - 3.4 /CUMM) 0.4 L Absolute Monocytes (0.10 - 0.60 /CUMM) 0.7 H Absolute Eosinophils (0.0 - 0.7 /CUMM) 0 Absolute Basophils (0.0 - 0.2 /CUMM) 0 PUBS MCHC (33.0 - 37.0 G/DL) 33.0 Toxicology Serum Alcohol (<10 MG/DL) < 10.0 Acetone Level (NEGATIVE) NEGATIVE Assessment/Plan Assessment/Plan 80-year-old gentleman with a past medical history of hypertension, and in atrial fibrillation, diabetes mellitus and hyperlipidemia. He presents to our emergency room with an episode of epistaxis as well as with recent appetite and weakness over the past several weeks. He was noted to have severe acute kidney injury as well as uremia and anemia. He had a mildly elevated troponin isoenzyme as well as a metabolic acidosis. Acute kidney injury, metabolic acidosis, uremia: This is likely secondary to acute dehydration due to continued use of high-dose torsemide. There has been improvement noted following IV hydration and I would continue with the same. His LV systolic function is preserved; although, he has mild diastolic dysfunction. Given his metabolic derangements however, as well as no evidence for acute just of heart failure, we will continue with hydration. Ecchymosis, epistaxis: The patient has permanent atrial fibrillation is been on Pradaxa. Due to his acute kidney injury is likely greatly supratherapeutic. He has no evidence for acute bleeding at this time and therefore, I would not pursue reversing Pradaxa. We will continue to hold his medication for now, I may consider restarting it on improvement in renal function. Atrial fibrillation: Chronic and long-standing. We will hold Pradaxa given his current renal dysfunction. Further anticoagulation management will be decided upon following improvement in his overall condition. The troponin isoenzyme: The troponin isoenzyme elevation is in the setting of acute severe kidney injury and does not represent an acute coronary syndrome. We will continue to follow conservatively. Thank you for allowing us to participate in the care of your patient. Please do not hesitate to contact us further with any questions. Sincerely, Matt Schrader MD [facility][1] Cardiology Group Consult Acknowledgment - Thank you for your consult request.
--- NOTE | 2016-12-10 13:05 | ECHOCARDIOGRAM REPORT ---
JENNIFER TABARES Age: 80 : 1935 Gender: M Exam Date: 12/10/2016 11:29 Exam Location: [facility] Ht (in): 70 Wt (lb): 192 BSA: 2.09 BP: 124 / 60 Ordering Physician: SHARON LIM M Referring Physician: Matt Schrader M.D. Technologist: Henny Harris PARMINDER Room Number: 110 Indications: CHEST PAIN Rhythm: Technical Quality: good FINDINGS Left Ventricle Normal appearing LV chamber size with mild concentric LVH. The estimated LVEF is 60% without focal wall motion abnormalities Right Ventricle Normal appearing RV chamber size and function Right Atrium Normal appearing right atrium Left Atrium Normal appearing left atrium Mitral Valve Mildly thickened and calcified mitral valvular leaflets and annulus. There is normal leaflet opening. Aortic Valve Trileaflet aortic valve with mild location. There is adequate leaflet opening. Tricuspid Valve Normal appearing tricuspid valvular leaflet structure and function. There is mild tricuspid regurgitation. The estimated woman her systolic pressure is 50-60 mmHg Pulmonic Valve Grossly normal appearing pulmonic valvular leaflet structure and function Pericardium Normal pericardium Great Vessels Normal great vessels CONCLUSIONS Normal appearing LV chamber size with mild concentric LVH. The estimated LVEF is 60% without focal wall motion abnormalities. Trileaflet aortic valve with mild location. There is adequate leaflet opening. There is mild tricuspid regurgitation. The estimated woman her systolic pressure is 50-60 mmHg. Matt Schrader M.D. (Electronically Signed) Final Date: 10 December 2016 13:04 MEASUREMENTS (Male / Female) Normal Values 2D ECHO LV Diastolic Diameter PLAX 5.3 cm 4.2 - 5.9 / 3.9 - 5.3 cm LV Systolic Diameter PLAX 2.8 cm 2.1 - 4.0 cm LV Fractional Shortening PLAX 47.2 % 25 - 46 % LV Ejection Fraction 2D Teich 78.2 % IVS Diastolic Thickness 1.3 cm LVPW Diastolic Thickness 1.3 cm LV Relative Wall Thickness 0.5 RV Internal Dim ED PLAX 3.6 cm 1.9 - 3.8 cm LVOT Diameter 2.0 cm Aortic Root Diameter 3.2 cm LA Systolic Diameter LX 3.7 cm 3.0 - 4.0 / 2.7 - 3.8 cm LA Volume 56.3 cm 18 - 58 / 22 - 52 cm LA Volume Index 27.0 cm/m 16 - 28 cm/m DOPPLER AV Peak Velocity 268.0 cm/s AV Peak Gradient 28.7 mmHg AV Mean Velocity 176.0 cm/s AV Mean Gradient 15.0 mmHg AV Velocity Time Integral 55.5 cm LVOT Peak Velocity 163.0 cm/s LVOT Peak Gradient 10.6 mmHg LVOT Mean Velocity 104.0 cm/s LVOT Mean Gradient 5.0 mmHg LVOT Velocity Time Integral 29.9 cm LVOT Stroke Volume 93.9 cm AV Area Cont Eq vti 1.7 cm AV Area Cont Eq pk 1.9 cm MV Peak Velocity 145.0 cm/s MV Peak Gradient 8.4 mmHg MV Mean Velocity 50.4 cm/s MV Mean Gradient 2.0 mmHg Mitral E Point Velocity 109.0 cm/s MV PHT Velocity 153.0 cm/s MV Deceleration [place] 576.0 cm/s MV Pressure Half Time 79.7 ms MV Area PHT 2.8 cm MV Deceleration Time 197.0 ms TR Peak Velocity 352.0 cm/s TR Peak Gradient 49.6 mmHg Right Atrial Pressure 5.0 mmHg Pulmonary Artery Systolic Pressu 54.6 mmHg Right Ventricular Systolic Press 54.6 mmHg PV Peak Velocity 171.0 cm/s PV Peak Gradient 11.7 mmHg PV Mean Velocity 117.0 cm/s PV Mean Gradient 6.0 mmHg PV Velocity Time Integral 32.1 cm LV E' Lateral Velocity 15.7 cm/s Mitral E to LV E' Lateral Ratio 6.9 LV E' Septal Velocity 10.6 cm/s Mitral E to LV E' Septal Ratio 10.3
--- NOTE | 2016-12-10 14:38 | Cons- Nephrology ---
General Information and HPI Consulting Request Date of Consult: 12/10/16 Requested By: DANIEL RUIZ MD Reason for Consult: RAQUEL History of Present Illness: 80 year old male with histoyr of htn hyperlipidemia, atrial fibrillation on Pradaxa, DM. He has fallen several times recetly, developed worsening lower extremity edema. He was started on torosemide at a relatively high dose, was also on thiazide as part of a combination with and ARB. He states he was also taking some Motrin for pain relief and continued to drink a large volume of EtOH. He developed increasing weakness, then developed profound epistaxis and perhaps some GI bleeding which led him to the ED. In the ED he was found to be relative hypotensive with systolic bp in the 90s, anemic, acidotic (small lactate plus larger anion gapJ) and have greatly elevated BUN/cr at 202/7.4. Baseline creatinine is mildly elevated at 1.4. UA in ED did not have signficant proteinuria or hematuria. He has been tranfused and give some saline with further drop in hemoglobin but improvement in BUN/Cr as well as blood pressure. FH: negative for kidney disease. Allergies/Medications Allergies: Coded Allergies: No Known Allergies (12/09/16) Home Med List: Atorvastatin Calcium 80 MG TABLET 1 TAB PO DAILY CHOLESTEROL (Reported) Atropine Sulfate 1 % DROPS 1 DROP OS EOD LEFT EYE (Reported) Brimonidine Tartrate/Timolol (Combigan Eye Drops) 0.2 %-0.5 % DROPS 1 DROP OP BID BOTH EYES (Reported) Cephalexin 750 MG CAPSULE 1 CAP PO 4XDAILY ANTIBIOTIC (Reported) Dabigatran Etexilate Mesylate (Pradaxa 150 MG) 150 MG CAPSULE 1 CAP PO BID BLOOD THINNER (Reported) Fenofibrate Nanocrystallized (Tricor) 145 MG TABLET 1 TAB PO DAILY CHOLESTEROL /TRIGLYCERIDES (Reported) Glucosam/Chond/Hyalu/Cf Borate (Move Free Joint Health Tablet) (Unknown Strength ) TABLET (Unknown Dose) PO AD SUPPLEMENT (Reported) Insulin Glargine,Hum.rec.anlog (Lantus Solostar) (Unknown Strength) INSULN.PEN (Unknown Dose) SC DAILY DM (Reported) Mesalamine (Asacol Hd) 800 MG TABLET.DR 2 TAB PO BID GI (Reported) Varina-3/Dha/Epa/Fish Oil (Fish Oil 1,000 MG Softgel) (Unknown Strength) CAPSULE (Unknown Dose) PO DAILY SUPPLEMENT (Reported) Potassium Chloride 20 MEQ TAB.ER.PRT 1 TAB PO DAILY SUPPLEMENT (Reported) Silver Sulfadiazine (Silvadene) 1 % CREAM..G. 1 KEE TOP BID BILATERAL SHINS ( Reported) apply to affected area(s) Torsemide 100 MG TABLET 0.5 TAB PO DAILY DIURETIC (Reported) Valsartan/Hydrochlorothiazide (Valsartan-Hctz 320-25 MG Tab) 320 MG-25 MG TABLET 1 TAB PO DAILY BP (Reported) Current Medications: Current Medications Sig/Marco Start time Last Medication Dose Route Stop Time Status Admin Acetaminophen 650 MG Q6P PRN 12/10 0015 AC PO Acetaminophen/ 1 TAB Q6P PRN 12/10 0015 AC Hydrocodone Bitart PO Atorvastatin Calcium 80 MG 1700 12/10 1700 AC PO Fenofibrate 145 MG DAILY 12/10 1000 CAN PO Folic Acid 1 MG DAILY 12/10 1000 AC PO Heparin Sodium 5,000 UNIT Q8 12/10 0600 CAN (Porcine) SC Hydromorphone HCl 1 MG Q6P PRN 12/10 0015 AC IV Influenza Virus 0.5 ML ONCE ONE 12/10 1215 DC Vaccine IM 12/10 1216 Insulin Aspart 0 TIDAC 12/10 0800 AC SC Insulin Detemir 10 UNITS DAILY 12/10 1000 AC SC Lorazepam 1 MG BID 12/10 1000 AC PO Lorazepam 0 Q1P PRN 12/10 0015 AC IV Multivitamins 1 TAB DAILY 12/10 1000 AC PO Sodium Chloride 1,000 ML .Q6H40M 12/09 2014 AC 12/10 IV 0425 Sodium Chloride 1,000 ML BOLUS ONE 12/09 1815 DC 12/09 IV 12/09 2013 1847 Sodium Chloride 1,000 ML ONCE ONE 12/09 1715 DC 12/09 IV 12/10 0114 1724 Thiamine HCl 100 MG DAILY 12/10 1000 AC PO Review of Systems Review of Systems: Neative except as noted above although may be unreliable as patient confused. Past History Travel History Traveled to [place] past 21 day No Medical History Neurological: NONE EENT: NONE Cardiovascular: AFIB, CAD, hypertension, hyperlipidemia Respiratory: NONE Gastrointestinal: NONE Hepatic: NONE Renal: NONE Musculoskeletal: BLE EXTREMITY INFECTION Psychiatric: NONE Endocrine: diabetes Blood Disorders: NONE Cancer(s): NONE INK GRINDER/Reproductive: NONE Surgical History Surgical History: non-contributory Psychosocial History Where Do You Live? Home Smoking Status: Former Smoker ETOH Use: heavy use Illicit Drug Use: denies illicit drug use ECHO Results (as available) EF% 65 Exam & Diagnostic Data Vital Signs and I&O Vital Signs Date Time Temp Pulse Resp B/P B/P Pulse O2 O2 Flow FiO2 Mean Ox Delivery Rate 12/10 0846 Room Air Room Air 12/10 08 97.8 68 20 130/70 95 Nasal 2.0L Cannula 12/10 08 95 Nasal 2.0L Cannula 12/10 0706 95 Room Air 12/10 0600 68 18 124/60 12/10 0220 64 18 100/60 12/10 0220 64 20 100/60 12/10 0220 95 Room Air 12/10 0220 95 Room Air 12/09 2325 96.9 62 14 130/56 100 Room Air 12/09 2301 81 18 138/88 12/09 2045 96.9 65 14 128/58 100 Room Air 12/09 1823 97.4 65 15 135/61 100 Room Air Room Air 12/09 1804 100 Room Air Room Air 12/09 1648 55 15 108/57 100 Room Air Room Air 12/09 1605 97.6 56 94/54 Intake & Output 12/10 1600 12/10 0400 12/09 1600 12/09 0400 12/08 1600 12/08 0400 Intake Total 800 1000 Output Total 500 Balance 300 1000 Intake, IV 700 1000 Intake, Oral 100 0 Output, Urine 500 Patient 187 lb 192 lb Weight Weight Bed scale Reported by Patient Measurement Method Physical Exam: NAD VS as above Eyes: anicteric, PERRLA. Neck: no mass or thyromegaly Nodes: negative cervical/inguinal Skin: fine maculopapular rash over trunk and arms, multiple eccymosis. Lungs: clear P&A CV: no rub or murmur Abd: nontender, no organomegaly, bs positive Exts: no edema, absent pedal pulses Neuro: somewhat lethargic, CN intact, no asterixis. Results Pertinent Lab Results: Laboratory Tests 12/10 12/10 0886 0579 Chemistry Sodium (137 - 145 mmol/L) 141 Potassium (3.5 - 5.1 mmol/L) 4.5 Chloride (98 - 107 mmol/L) 112 H Carbon Dioxide (22 - 30 mmol/L) 12 L Anion Gap (5 - 16) 18 H BUN (9 - 20 mg/dL) 191 *H Creatinine (0.7 - 1.2 mg/dL) 5.8 *H Estimated GFR (>60 ml/min) 9 L BUN/Creatinine Ratio (7 - 25 %) 32.9 H Creatine Kinase (55 - 170 U/L) 463 H Troponin I (<0.11 ng/ml) 0.24 *H Coagulation PT (9.4 - 12.5 SEC) 57.3 *H INR (0.90 - 1.17) 5.55 *H Hematology CBC w Diff NO MAN DIFF REQ NO MAN DIFF REQ WBC (4.8 - 10.8 /CUMM) 8.8 9.0 RBC (4.70 - 6.10 /CUMM) 2.02 L 2.02 L Hgb (14.0 - 18.0 G/DL) 6.2 *L 6.3 *L Hct (42 - 52 %) 18.8 *L 18.7 *L MCV (80.0 - 94.0 FL) 93.1 93.0 MCH (27.0 - 31.0 PG) 30.6 31.1 H RDW (11.5 - 14.5 %) 17.0 H 17.4 H Plt Count (130 - 400 /CUMM) 205 211 MPV (7.4 - 10.4 FL) 9.3 8.8 Gran % (42.2 - 75.2 %) 85.6 H 86.1 H Lymphocytes % (20.5 - 51.1 %) 5.2 L 5.4 L Monocytes % (1.7 - 9.3 %) 6.5 5.9 Eosinophils % (0 - 5 %) 2.3 2.3 Basophils % (0.0 - 2.0 %) 0.4 0.3 Absolute Granulocytes (1.4 - 6.5 /CUMM) 7.5 H 7.7 H Absolute Lymphocytes (1.2 - 3.4 /CUMM) 0.5 L 0.5 L Absolute Monocytes (0.10 - 0.60 /CUMM) 0.6 0.5 Absolute Eosinophils (0.0 - 0.7 /CUMM) 0.2 0.2 Absolute Basophils (0.0 - 0.2 /CUMM) 0 0 PUBS MCHC (33.0 - 37.0 G/DL) 32.9 L 33.5 12/100 2152 1944 Chemistry Lactic Acid (0.7 - 2.1 mmol/L) 1.2 Troponin I (<0.11 ng/ml) 0.24 *H Urines Urinalysis LIGHT H Urine Color (YEL,AMB,STR) YEL Urine Clarity (CLEAR) CLEAR Urine pH (5.0 - 8.0) 6.0 Ur Specific [place] (1.001 - 1.035) 1.015 Urine Protein (NEG,<30 MG/DL) NEG Urine Ketones (NEG) NEG Urine Nitrite (NEG) NEG Urine Bilirubin (NEG) NEG Urine Urobilinogen (0.1 - 1.0 EU/dl) 0.2 Ur Leukocyte Esterase (NEG) NEG Ur Microscopic SEDIMENT EXAMINED Urine RBC (0 - 5 /HPF) 1-3 Ur Epithelial Cells (NONE,FEW) RARE Urine Mucus (FEW,NONE) FEW Urine Hemoglobin (NEG) TRACE-INTACT H Urine Glucose (N MG/DL) NEG 12/09 12/09 1750 1635 Blood Gas pH (7.35 - 7.45 PH) 7.34 L pCO2 (35 - 45 TORR) 22 L pO2 (80 - 100 TORR) 110 H HCO3 (21 - 28 MEQ/L) 12 L ABG O2 Sat (Measured) (>96.0 %) 97.0 P-50 (Temp Corrected) N Carboxyhemoglobin (1.5 - 5.0 %) 0.3 L O2 Concentration % R/A Temperature (97.0 - 100.0 FARH) 97.6 Chemistry Ammonia (9 - 30 umol/L) 17 Miscellaneous Phlebotomy Draw Site RIGHT BRACHIAL 12/09 163 Chemistry Sodium (137 - 145 mmol/L) 140 Potassium (3.5 - 5.1 mmol/L) 5.5 H Chloride (98 - 107 mmol/L) 106 Carbon Dioxide (22 - 30 mmol/L) 11 L Anion Gap (5 - 16) 23 H BUN (9 - 20 mg/dL) 202 *H Creatinine (0.7 - 1.2 mg/dL) 7.4 *H Estimated GFR (>60 ml/min) 7 L BUN/Creatinine Ratio (7 - 25 %) 27.3 H Glucose (65 - 99 mg/dL) 123 H Hemoglobin A1c (4.2 - 5.8 %) Pending Lactic Acid (0.7 - 2.1 mmol/L) 4.6 H Calcium (8.4 - 10.2 mg/dL) 9.5 Magnesium (1.6 - 2.3 mg/dL) 3.1 H Total Bilirubin (0.2 - 1.3 mg/dL) 0.8 AST (17 - 59 U/L) 51 ALT (21 - 72 U/L) 49 Alkaline Phosphatase (< 127 U/L) 46 Creatine Kinase (55 - 170 U/L) 556 H Troponin I (<0.11 ng/ml) 0.25 *H Total Protein (6.3 - 8.2 g/dL) 6.5 Albumin (3.5 - 5.0 g/dL) 3.5 Globulin (1.9 - 4.2 gm/dL) 3.0 Albumin/Globulin Ratio (1.1 - 2.2 %) 1.2 Vitamin B12 (239 - 931 pg/mL) 639 25-OH Vitamin D Total (30 - 100 ng/ml) 7.4 L Folate (2.76 - 20.0 ng/mL) 4.8 TSH &T3 &Free T4 Intrp (0.27 - 4.20 uIU/mL) 3.780 Coagulation PT (9.4 - 12.5 SEC) 57.2 *H INR (0.90 - 1.17) 5.54 *H APTT (25 - 37 SEC) 102 *H Hematology CBC w Diff NO MAN DIFF REQ WBC (4.8 - 10.8 /CUMM) 12.5 H RBC (4.70 - 6.10 /CUMM) 2.61 L Hgb (14.0 - 18.0 G/DL) 8.0 L Hct (42 - 52 %) 24.3 L MCV (80.0 - 94.0 FL) 92.8 MCH (27.0 - 31.0 PG) 30.6 RDW (11.5 - 14.5 %) 17.4 H Plt Count (130 - 400 /CUMM) 329 MPV (7.4 - 10.4 FL) 9.8 Gran % (42.2 - 75.2 %) 90.6 H Lymphocytes % (20.5 - 51.1 %) 3.5 L Monocytes % (1.7 - 9.3 %) 5.2 Eosinophils % (0 - 5 %) 0.3 Basophils % (0.0 - 2.0 %) 0.4 Absolute Granulocytes (1.4 - 6.5 /CUMM) 11.3 H Absolute Lymphocytes (1.2 - 3.4 /CUMM) 0.4 L Absolute Monocytes (0.10 - 0.60 /CUMM) 0.7 H Absolute Eosinophils (0.0 - 0.7 /CUMM) 0 Absolute Basophils (0.0 - 0.2 /CUMM) 0 PUBS MCHC (33.0 - 37.0 G/DL) 33.0 Toxicology Serum Alcohol (<10 MG/DL) < 10.0 Acetone Level (NEGATIVE) NEGATIVE Imaging/Other Studies: CT scan with normal kidneys Assessment/Plan Assessment/Recommendations Assessment: RAQUEL probably from overdiuresis (loop and thiazide diuretic) and blood loss/ diarrhea in combination with ARB and NSAIDs. He is non-oliguric and has cleared his lactate, some improvement in BUN/cr. 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 Recommendations: Would change IV to D5 1/2 NS plus 75 meq/L of NaHCO3 at 150 cc per hour. This will help his acidosis as we continue volume expansion. ALthough with rash AIN is possible, not clear he had this rash on presentation and clearly was volume depleted. Continue to follow labs, would check phosphate level. Will follow with you.
--- NOTE | 2016-12-10 15:21 | PN- Att Addend ---
Attending MD Review Statement Attending Statement Attending MD Statement: examined this patient, discuss w/resident/PA/SUPERVISOR TRAIN OPERATIONS, agreed w/resident/PA/SUPERVISOR TRAIN OPERATIONS, reviewed EMR data (avail), discussed w/nursing Attending Assessment/Plan: Laboratory Tests 12/10/16 0828: CBC w Diff NO MAN DIFF REQ, RBC 2.02 L, MCV 93.1, MCH 30.6, RDW 17.0 H, MPV 9.3, Gran % 85.6 H, Lymphocytes % 5.2 L, Monocytes % 6.5, Eosinophils % 2.3, Basophils % 0.4, Absolute Granulocytes 7.5 H, Absolute Lymphocytes 0.5 L, Absolute Monocytes 0.6, Absolute Eosinophils 0.2, Absolute Basophils 0, PUBS MCHC 32.9 L 12/10/16 0547: Anion Gap 18 H, Estimated GFR 9 L, BUN/Creatinine Ratio 32.9 H, Phosphorus 5.8 H, Creatine Kinase 463 H, Troponin I 0.24 *H, PT 57.3 *H, INR 5.55 *H, CBC w Diff NO MAN DIFF REQ, RBC 2.02 L, MCV 93.0, MCH 31.1 H, RDW 17.4 H, MPV 8.8 , Gran % 86.1 H, Lymphocytes % 5.4 L, Monocytes % 5.9, Eosinophils % 2.3, Basophils % 0.3, Absolute Granulocytes 7.7 H, Absolute Lymphocytes 0.5 L, Absolute Monocytes 0.5, Absolute Eosinophils 0.2, Absolute Basophils 0, PUBS MCHC 33.5 12/10/16 0100: Troponin I 0.24 *H 12/09/16 2153: Urinalysis LIGHT H, Urine Color YEL, Urine Clarity CLEAR, Urine pH 6.0, Ur Specific [place] 1.015, Urine Protein NEG, Urine Ketones NEG, Urine Nitrite NEG, Urine Bilirubin NEG, Urine Urobilinogen 0.2, Ur Leukocyte Esterase NEG, Ur Microscopic SEDIMENT EXAMINED, Urine RBC 1-3, Ur Epithelial Cells RARE, Urine Mucus FEW, Urine Hemoglobin TRACE-INTACT H, Urine Glucose NEG 12/09/16 1945: Lactic Acid 1.2 12/09/16 1750: pH 7.34 L, pCO2 22 L, pO2 110 H, HCO3 12 L, ABG O2 Sat (Measured) 97.0, P-50 (Temp Corrected) N, Carboxyhemoglobin 0.3 L, O2 Concentration % R/A, Temperature 97.6, Phlebotomy Draw Site RIGHT BRACHIAL 12/09/16 1635: Ammonia 17 12/09/16 1635: Anion Gap 23 H, Estimated GFR 7 L, BUN/Creatinine Ratio 27.3 H, Glucose 123 H, Hemoglobin A1c Pending, Lactic Acid 4.6 H, Calcium 9.5, Magnesium 3.1 H, Total Bilirubin 0.8, AST 51, ALT 49, Alkaline Phosphatase 46, Creatine Kinase 556 H, Troponin I 0.25 *H, Total Protein 6.5, Albumin 3.5, Globulin 3.0, Albumin/Globulin Ratio 1.2, Vitamin B12 639, 25-OH Vitamin D Total 7.4 L, Folate 4.8, TSH &T3 &Free T4 Intrp 3.780, PT 57.2 *H, INR 5.54 *H, APTT 102 *H, CBC w Diff NO MAN DIFF REQ, RBC 2.61 L, MCV 92.8, MCH 30.6, RDW 17.4 H, MPV 9.8, Gran % 90.6 H, Lymphocytes % 3.5 L, Monocytes % 5.2, Eosinophils % 0.3, Basophils % 0.4, Absolute Granulocytes 11.3 H, Absolute Lymphocytes 0.4 L, Absolute Monocytes 0.7 H, Absolute Eosinophils 0, Absolute Basophils 0, PUBS MCHC 33.0, Serum Alcohol < 10.0, Acetone Level NEGATIVE Vital Signs Date Time Temp Pulse Resp B/P B/P Pulse O2 O2 Flow FiO2 Mean Ox Delivery Rate 12/10 0846 Room Air Room Air 12/10 0800 97.8 68 20 130/70 95 Nasal 2.0L Cannula 12/10 08 95 Nasal 2.0L Cannula 12/10 0706 95 Room Air 12/10 0600 68 18 124/60 12/10 0220 64 18 100/60 12/10 0220 64 20 100/60 12/10 0220 95 Room Air 12/10 0220 95 Room Air 12/09 2325 96.9 62 14 130/56 100 Room Air 12/09 2301 81 18 138/88 12/09 2045 96.9 65 14 128/58 100 Room Air 12/09 1823 97.4 65 15 135/61 100 Room Air Room Air 12/09 1804 100 Room Air Room Air 12/09 1648 55 15 108/57 100 Room Air Room Air 12/09 1605 97.6 56 94/54 Patient seen and examined at bedside. Discussed with patient the care plan. 80 -year-old male with past medical history of alcohol abuse and multiple other medical issues who initially presented to the ER with epistaxis and falls at home. Patient in the emergency room was found to have anemia with hemoglobin of 8.0 and hyperkalemia with potassium of 5.5 and acute renal failure with BUN of 202 and creatinine of 7.4. Patient was also found to be hypotensive and elevated troponin. Patient also has atrial fibrillation and was on pradaxa at home. Acute Anemia secondary to blood loss likely secondary to epistaxis and possible GI bleed. We will start him on PPI renal dosing. Patient is getting 2 units of blood transfusion today we will follow his hemoglobin serially. Acute kidney injury likely secondary to a combination of his medications as well as severe dehydration. We will hold his valsartan and hydrochlorothiazide and torsemide. Unclear if he was taking these medications prior to admission. His renal functions are improving and his anion gap is also improving. We will continue to monitor closely. Elevated troponins-likely type II myocardial infarction secondary to demand ischemia. Cardiology following the patient. We'll monitor him on telemetry. We will follow up on the echocardiogram results.
[2016-12-10 16:00] VITALS: BP 120/58
[2016-12-10 17:04] LABS: ABSOLUTE BASOPHIL COUNT 0 /CUMM (0.0-0.2); ABSOLUTE EOSINOPHIL COUNT 0.3 /CUMM (0.0-0.7); ABSOLUTE LYMPH COUNT 0.4 /CUMM (1.2-3.4); ABSOLUTE MONOCYTE COUNT 0.6 /CUMM (0.10-0.60); BASOPHIL % 0.2 % (0.0-2.0); EOSINOPHIL % 2.6 % (0-5); GRANULOCYTE % 87.9 % (42.2-75.2); HEMATOCRIT 23.5 % (42-52); MEAN CORPUSCULAR HGB 30.4 PG (27.0-31.0); MEAN CORPUSCULAR HGB CONC 33.8 G/DL (33.0-37.0); MEAN CORPUSCULAR VOLUME 89.9 FL (80.0-94.0); MEAN PLATELET VOLUME 9.2 FL (7.4-10.4); PLATELET COUNT 196 /CUMM (130-400); WHITE BLOOD CELL COUNT 10.2 /CUMM (4.8-10.8)
[2016-12-10 17:15] LABS: RED BLOOD CELL CT 2.62 /CUMM (4.70-6.10)
--- NOTE | 2016-12-10 17:58 | NUR ---
PT DROWSY, EASIER TO WAKE HIM THIS AFTERNOON. HE IS STARTING TO DRINK AND EAT SOUP AND APPLESAUCE.MONITOR AFIB WITH VARYING HEART RATE. GATO TO HIGH 30'S BRIEFLY WITH NO SYMPTOMS. HE WAS TRANSFUSED WITH 2 UNITS OF LPPC AND REPEAT H AND H IS 8.0 AND 23.5. HE HAS HAD 2 LOOSE BLACK STOOLS THAT ARE HEME POSITIVE. NO VOMITING OR NAUSEA AND HE DENIES PAIN. IV NS THAT WAS INFUSING AT 150MLS PER HOUR WAS D/C/D AFTER RENAL CONSULT AND D1/2NS WITH 75 MEQ BICARB PER LITER WAS HUNG AND IS INFUSING AT 150MLS PER HOUR. HE IS TAKING HIS MEDS WITH APPLESAUCE. HE HAS SEVERAL WOUNDS, BOTH BUTTOCKS HAVE ULCERS, BOTH LOWER LEGS HAVE ULCERS, HIS LOWER LIP HAS AN OPEN SORE. HE HAS AN EXTENSIVE ECCHYMOTIC AREA ON HIS RIGHT HIP. HE ALSO HAS A DIFFUSE RASH ON TRUNK AND EXTREMITIES. HIS FAMILY HAS VISITED AND UPDATES HAVE BEEN GIVEN. THE LOWER LEG WOUNDS HAVE BEEN DRESSED WITH XEROFORM AND TELFA. WOUND CONSULT HAS BEEN PLACED.
[2016-12-11] VITALS: BP 108/40; BP 120/58
--- NOTE | 2016-12-11 00:50 | NUR ---
MD COPPOLA MADE AWARE, PT HAS BEEN VOIDING Q45MIN WITH 100-150ML AT A TIME, DIFFICULTY WITH STREAM OF URINE. POST RESIDUAL BLADDER SCAN 500ML. PLACED ON STRAIGHT CATH PROTOCOL PER MD ORDERS WITH 550ML CLEAR YELLOW URINE. NEXT STRAIGHT CATH AT 0300. WILL CONT TO MONITOR.
[2016-12-11 04:24] LABS: ABSOLUTE BASOPHIL COUNT 0 /CUMM (0.0-0.2); ABSOLUTE EOSINOPHIL COUNT 0.4 /CUMM (0.0-0.7); ABSOLUTE LYMPH COUNT 0.5 /CUMM (1.2-3.4); ABSOLUTE MONOCYTE COUNT 0.6 /CUMM (0.10-0.60); BASOPHIL % 0.3 % (0.0-2.0); EOSINOPHIL % 4.4 % (0-5); GRANULOCYTE % 83.1 % (42.2-75.2); HEMATOCRIT 26.5 % (42-52); MEAN CORPUSCULAR HGB 30.1 PG (27.0-31.0); MEAN CORPUSCULAR HGB CONC 33.7 G/DL (33.0-37.0); MEAN CORPUSCULAR VOLUME 89.2 FL (80.0-94.0); MEAN PLATELET VOLUME 9.3 FL (7.4-10.4); PLATELET COUNT 215 /CUMM (130-400); RBC DISTRIBUTION WIDTH 18.7 % (11.5-14.5); RED BLOOD CELL CT 2.97 /CUMM (4.70-6.10); WHITE BLOOD CELL COUNT 8.5 /CUMM (4.8-10.8)
--- NOTE | 2016-12-11 04:44 | NUR ---
MD TAPIA MADE AWARE, HR AFIB GOES DOWN TO 26. NO NEW ORDERS AT THIS TIME.
--- NOTE | 2016-12-11 06:23 | PN- Resident CRCU ---
Objective Vital Signs & I&O Last 8 Hrs of Vitals and I&O: Intake & Output 12/11 0800 Intake Total 1090 Output Total 1400 Balance -310 Intake, IV 1090 Intake, Oral 0 Number 0 Bowel Movements Output, Urine 1400 Exam General Appearance: well developed/nourished, no apparent distress Cardiovascular: regular rate/rhythm, edema, gallop Gastrointestinal: normal bowel sounds, soft, non-tender, no organomegaly Extremities: normal inspection Current Medications: Current Medications Sig/Marco Start time Last Medication Dose Route Stop Time Status Admin Acetaminophen 650 MG Q6P PRN 12/10 0015 AC PO Acetaminophen/ 1 TAB Q6P PRN 12/10 0015 AC Hydrocodone Bitart PO Atorvastatin Calcium 80 MG 1700 12/10 1700 AC 12/10 PO 1734 Dextrose/Sodium 1,000 ML Q6H 12/10 1430 DC Chloride IV Folic Acid 1 MG DAILY 12/10 1000 AC 12/10 PO 1200 Hydromorphone HCl 1 MG Q6P PRN 12/10 0015 AC IV Influenza Virus 0.5 ML ONCE ONE 12/10 1215 DC 12/10 Vaccine IM 12/10 1216 1723 Insulin Aspart 0 TIDAC 12/10 0800 AC SC Insulin Detemir 10 UNITS DAILY 12/10 1000 AC 12/10 SC 1200 Lorazepam 1 MG BID 12/10 1000 AC 12/10 PO 2232 Lorazepam 0 Q1P PRN 12/10 0015 AC 12/11 IV 0016 Multivitamins 1 TAB DAILY 12/10 1000 AC 12/10 PO 1000 Nystatin 1 KEE TID 12/10 2200 AC 12/10 TOP 2232 Pantoprazole Sodium 40 MG DAILY 12/10 1519 AC 12/10 IV 1724 Sodium Bicarbonate 75 MEQ Q6H 12/10 1445 AC 12/11 Dextrose/Sodium 1,000 ML IV 0540 Chloride Sodium Chloride 1,000 ML .Q6H40M 12/09 2015 DC 12/10 IV 0425 Thiamine HCl 100 MG DAILY 12/10 1000 AC 12/10 PO 1200 Impression/Plan Plan DVT/Prophylaxis: pharmacological (Currently On Hold) nicotine use quit over 20 years ago, daily alcohol use drinks (one unit per day) , who presented to the emergency department following multiple episodes of epistaxis and multiple recurrent falls. He was noted to have severe anemia and metabolic acidosis. Patient is currently admitted to the ICU (as a telemetry hold) #Acute kidney injury, metabolic acidosis and uremia. Likely the result of combination of new medications thiazide diuretic and loop diuretic in combination with recent blood loss and hypotension. Improvements in BUN (202-->191) and creatinine (7.4-->5.8) noted. Renal consultation obtained. Continue IV hydration: Sodium Bicarbonate 75 meq D5W1/2 NS 1000mL #Anemia due to epistaxis. Patient's H&H this morning was 6.3 and 18.8 He was transfused 2 units PRBCs. He has responded well and will monitor a CBC 12/11/2016. If H&H continue to drop we will consider GI consult in a.m. #Elevated troponin Likely due to demand ischemia and a component of RAQUEL. Troponins trended to the peak of: 0.25-->0.24-->0.24 #History Of atrial fibrillation Hold Pradaxa for now. Consider resuming once renal function has normalized. #History of diabetes Early on Levemir 10 units daily. Continue NovoLog sliding scale. Finger stick: 100-->130 #Multiple Bilaterral Avulsions Anterior Lower Shins Wound care consult 12/11/2016 Consider social work consult in a.m. #DVT prophylaxis Hold Pradaxa for now. #Code: Full code Problem List: 1. Epistaxis 2. Elevated troponin 3. Acute renal failure Pain Ratin Tomorrow's Labs & Rationales: CBC ICU Bundle Plan DVT/Prophylaxis: pharmacological (Currently On Hold)
--- NOTE | 2016-12-11 07:42 | RADIOLOGY REPORT ---
EXAMINATION: XR PORTABLE CHEST CLINICAL INFORMATION: Pneumothorax. Shortness of breath. COMPARISON: 12/09/2016 TECHNIQUE: Portable AP view of the chest was obtained. FINDINGS: No pneumothorax. Lungs appear clear with no edema consolidation or effusion. Stable cardiomediastinal silhouette. IMPRESSION: Unremarkable examination.
--- NOTE | 2016-12-11 08:15 | PN- Nephrology ---
Assessment/Plan Assessment: Encephalopathy with respiratory alkalsosis. May be multifactorial including alcohol withdrawl, uremia, ICU psychosis, benzodiazepams. Renal function rapidly improving and would not expect metabolic encephalopathy soley due to uremia to be worsening when GFR has already substantially improved. MOre hypernatremic as well. Suggestion: Stop bicarbonate given respiratory alkalosis. Would continue IV D51/2 ns at 100 cc per hour. Needs Mckinney catheter given incontinence and need to watch UO in this still critically ill patient who we are trying to volume expand. Subjective Subjective: More confused this morning, encepaholpathic. Good UO. Objective Vital Signs and I&Os Vital Signs Date Time Temp Pulse Resp B/P B/P Pulse O2 O2 Flow FiO2 Mean Ox Delivery Rate 12/11 0600 67 24 12/11 0400 45 22 12/11 0200 69 26 12/11 0052 48 24 12/11 0026 96 Nasal 2.0L Cannula 12/11 0000 97.8 67 20 120/58 12/11 0000 90 Room Air Room Air 12/11 0000 97.3 34 24 108/40 90 Room Air Room Air 12/10 2200 67 26 12/10 2000 97.9 34 18 12/10 1600 98.2 58 20 120/58 95 Room Air 12/10 0846 Room Air Room Air Intake & Output 12/11 1600 12/11 0400 12/10 1600 12/10 0400 12/09 1600 12/09 0400 Intake Total 1090 1300 3000 1000 Output Total 4197 772 4825 Balance -156 755 9356 1000 Intake, Blood 600 Product Intake, IV 1090 1200 1900 1000 Intake, Oral 0 100 500 0 Number 0 0 1 Bowel Movements Output, Urine [phone] Patient 187 lb 192 lb Weight Weight Bed scale Reported by Patient Measurement Method Physical Exam: No respiratory distress. VS as above Skin: maculopapular rash, more developed then yesterday. Lungs: clear P&A CV: no rub Abd: nontender Exts: no edema Neuro: tremulous, confused. Current Medications: Current Medications Sig/Marco Start time Last Medication Dose Route Stop Time Status Admin Acetaminophen 650 MG Q6P PRN 12/10 0015 AC PO Acetaminophen/ 1 TAB Q6P PRN 12/10 0015 DC Hydrocodone Bitart PO Atorvastatin Calcium 80 MG 1700 12/10 1700 AC 12/10 PO 1734 Dextrose/Sodium 1,000 ML Q10H 12/11 0815 UNVr Chloride IV Dextrose/Sodium 1,000 ML Q6H 12/10 1430 DC Chloride IV Folic Acid 1 MG DAILY 12/10 1000 AC 12/10 PO 1200 Hydromorphone HCl 1 MG Q6P PRN 12/10 0015 DC IV Influenza Virus 0.5 ML ONCE ONE 12/10 1215 DC 12/10 Vaccine IM 12/10 1216 1723 Insulin Aspart 0 TIDAC 12/10 0800 AC SC Insulin Detemir 10 UNITS DAILY 12/10 1000 AC 12/10 SC 1200 Lorazepam 1 MG BID 12/10 1000 AC 12/10 PO 2232 Lorazepam 0 Q1P PRN 12/10 0015 AC 12/11 IV 0016 Multivitamins 1 TAB DAILY 12/10 1000 AC 12/10 PO 1000 Nystatin 1 KEE TID 12/10 2200 AC 12/10 TOP 2232 Pantoprazole Sodium 40 MG DAILY 12/10 1519 AC 12/10 IV 1724 Sodium Bicarbonate 75 MEQ Q6H 12/10 1445 DC 12/11 Dextrose/Sodium 1,000 ML IV 0540 Chloride Sodium Chloride 1,000 ML .Q6H40M 12/09 2014 DC 12/10 IV 0425 Thiamine HCl 100 MG DAILY 12/10 1000 AC 12/10 PO 1200 Results Pertinent Lab Results: Laboratory Tests 12/11 12/11 12/11 12/11 0800 0800 0716 0710 Blood Gas pH (7.35 - 7.45 PH) 7.47 H pCO2 (35 - 45 TORR) 28 L pO2 (80 - 100 TORR) 125 H HCO3 (21 - 28 MEQ/L) 20 L ABG O2 Sat (Measured) (>96.0 %) 97.0 Carboxyhemoglobin (1.5 - 5.0 %) 0.3 L O2 Concentration % 2 LPM O2 Delivery Method NC Chemistry Sodium Pending Potassium Pending Chloride Pending Carbon Dioxide Pending Anion Gap Pending BUN Pending Creatinine Pending BUN/Creatinine Ratio Pending Ammonia Pending Troponin I Cancelled Miscellaneous Phlebotomy Draw Site RIGHT BRACHIAL 12/11 12/10 0310 1600 Chemistry Sodium (137 - 145 mmol/L) 151 H 146 H Potassium (3.5 - 5.1 mmol/L) 4.2 4.1 Chloride (98 - 107 mmol/L) 117 H 116 H Carbon Dioxide (22 - 30 mmol/L) 16 L 12 L Anion Gap (5 - 16) 17 H 18 H BUN (9 - 20 mg/dL) 168 *H > 240 *H Creatinine (0.7 - 1.2 mg/dL) 3.5 H 4.6 H Estimated GFR (>60 ml/min) 17 L 12 L BUN/Creatinine Ratio (7 - 25 %) 52.2 H Glucose (65 - 99 mg/dL) 187 H Calcium (8.4 - 10.2 mg/dL) 9.6 Phosphorus (2.5 - 4.5 mg/dL) 4.9 H 5.6 H Magnesium (1.6 - 2.3 mg/dL) 2.9 H 3.0 H Total Bilirubin (0.2 - 1.3 mg/dL) 0.8 AST (17 - 59 U/L) 46 ALT (21 - 72 U/L) 44 Troponin I (<0.11 ng/ml) Pending Albumin (3.5 - 5.0 g/dL) 2.8 L Hematology CBC w Diff MAN DIFF ORDERED NO MAN DIFF REQ WBC (4.8 - 10.8 /CUMM) 8.5 10.2 RBC (4.70 - 6.10 /CUMM) 2.97 L 2.62 L Hgb (14.0 - 18.0 G/DL) 8.9 L 8.0 L Hct (42 - 52 %) 26.5 L 23.5 L MCV (80.0 - 94.0 FL) 89.2 89.9 MCH (27.0 - 31.0 PG) 30.1 30.4 RDW (11.5 - 14.5 %) 18.7 H 17.0 H Plt Count (130 - 400 /CUMM) 215 196 MPV (7.4 - 10.4 FL) 9.3 9.2 Gran % (42.2 - 75.2 %) 83.1 H 87.9 H Lymphocytes % (20.5 - 51.1 %) 5.5 L 3.6 L Monocytes % (1.7 - 9.3 %) 6.7 5.7 Eosinophils % (0 - 5 %) 4.4 2.6 Basophils % (0.0 - 2.0 %) 0.3 0.2 Absolute Granulocytes (1.4 - 6.5 /CUMM) 7.0 H 9.0 H Segmented Neutrophils (42.2 - 75.2 %) 94 H Absolute Lymphocytes (1.2 - 3.4 /CUMM) 0.5 L 0.4 L Lymphocytes (20.5 - 51.1 %) 5 L Absolute Monocytes (0.10 - 0.60 /CUMM) 0.6 0.6 Eosinophils (0 - 5.0 %) 1 Absolute Eosinophils (0.0 - 0.7 /CUMM) 0.4 0.3 Absolute Basophils (0.0 - 0.2 /CUMM) 0 0 Nucleated RBCs (0.0 - 0.0 /100WBC) 1 H Platelet Estimate (ADEQUATE) ADEQUATE Polychromasia 1+ Ovalocytes 1+ PUBS MCHC (33.0 - 37.0 G/DL) 33.7 33.8 12/10 12/10 0828 0547 Chemistry Sodium (137 - 145 mmol/L) 141 Potassium (3.5 - 5.1 mmol/L) 4.5 Chloride (98 - 107 mmol/L) 112 H Carbon Dioxide (22 - 30 mmol/L) 12 L Anion Gap (5 - 16) 18 H BUN (9 - 20 mg/dL) 191 *H Creatinine (0.7 - 1.2 mg/dL) 5.8 *H Estimated GFR (>60 ml/min) 9 L BUN/Creatinine Ratio (7 - 25 %) 32.9 H Phosphorus (2.5 - 4.5 mg/dL) 5.8 H Creatine Kinase (55 - 170 U/L) 463 H Troponin I (<0.11 ng/ml) 0.24 *H Coagulation PT (9.4 - 12.5 SEC) 57.3 *H INR (0.90 - 1.17) 5.55 *H Hematology CBC w Diff NO MAN DIFF REQ NO MAN DIFF REQ WBC (4.8 - 10.8 /CUMM) 8.8 9.0 RBC (4.70 - 6.10 /CUMM) 2.02 L 2.02 L Hgb (14.0 - 18.0 G/DL) 6.2 *L 6.3 *L Hct (42 - 52 %) 18.8 *L 18.7 *L MCV (80.0 - 94.0 FL) 93.1 93.0 MCH (27.0 - 31.0 PG) 30.6 31.1 H RDW (11.5 - 14.5 %) 17.0 H 17.4 H Plt Count (130 - 400 /CUMM) 205 211 MPV (7.4 - 10.4 FL) 9.3 8.8 Gran % (42.2 - 75.2 %) 85.6 H 86.1 H Lymphocytes % (20.5 - 51.1 %) 5.2 L 5.4 L Monocytes % (1.7 - 9.3 %) 6.5 5.9 Eosinophils % (0 - 5 %) 2.3 2.3 Basophils % (0.0 - 2.0 %) 0.4 0.3 Absolute Granulocytes (1.4 - 6.5 /CUMM) 7.5 H 7.7 H Absolute Lymphocytes (1.2 - 3.4 /CUMM) 0.5 L 0.5 L Absolute Monocytes (0.10 - 0.60 /CUMM) 0.6 0.5 Absolute Eosinophils (0.0 - 0.7 /CUMM) 0.2 0.2 Absolute Basophils (0.0 - 0.2 /CUMM) 0 0 PUBS MCHC (33.0 - 37.0 G/DL) 32.9 L 33.5 12/10 12/09 12/09 0100 2153 1945 Chemistry Lactic Acid (0.7 - 2.1 mmol/L) 1.2 Troponin I (<0.11 ng/ml) 0.24 *H Urines Urinalysis LIGHT H Urine Color (YEL,AMB,STR) YEL Urine Clarity (CLEAR) CLEAR Urine pH (5.0 - 8.0) 6.0 Ur Specific Prince (1.001 - 1.035) 1.015 Urine Protein (NEG,<30 MG/DL) NEG Urine Ketones (NEG) NEG Urine Nitrite (NEG) NEG Urine Bilirubin (NEG) NEG Urine Urobilinogen (0.1 - 1.0 EU/dl) 0.2 Ur Leukocyte Esterase (NEG) NEG Ur Microscopic SEDIMENT EXAMINED Urine RBC (0 - 5 /HPF) 1-3 Ur Epithelial Cells (NONE,FEW) RARE Urine Mucus (FEW,NONE) FEW Urine Hemoglobin (NEG) TRACE-INTACT H Urine Glucose (N MG/DL) NEG 12/09 12/09 1750 1635 Blood Gas pH (7.35 - 7.45 PH) 7.34 L pCO2 (35 - 45 TORR) 22 L pO2 (80 - 100 TORR) 110 H HCO3 (21 - 28 MEQ/L) 12 L ABG O2 Sat (Measured) (>96.0 %) 97.0 P-50 (Temp Corrected) N Carboxyhemoglobin (1.5 - 5.0 %) 0.3 L O2 Concentration % R/A Temperature (97.0 - 100.0 FARH) 97.6 Chemistry Ammonia (9 - 30 umol/L) 17 Miscellaneous Phlebotomy Draw Site RIGHT BRACHIAL 12/09 1635 Chemistry Sodium (137 - 145 mmol/L) 140 Potassium (3.5 - 5.1 mmol/L) 5.5 H Chloride (98 - 107 mmol/L) 106 Carbon Dioxide (22 - 30 mmol/L) 11 L Anion Gap (5 - 16) 23 H BUN (9 - 20 mg/dL) 202 *H Creatinine (0.7 - 1.2 mg/dL) 7.4 *H Estimated GFR (>60 ml/min) 7 L BUN/Creatinine Ratio (7 - 25 %) 27.3 H Glucose (65 - 99 mg/dL) 123 H Hemoglobin A1c (4.2 - 5.8 %) Pending Lactic Acid (0.7 - 2.1 mmol/L) 4.6 H Calcium (8.4 - 10.2 mg/dL) 9.5 Magnesium (1.6 - 2.3 mg/dL) 3.1 H Total Bilirubin (0.2 - 1.3 mg/dL) 0.8 AST (17 - 59 U/L) 51 ALT (21 - 72 U/L) 49 Alkaline Phosphatase (< 127 U/L) 46 Creatine Kinase (55 - 170 U/L) 556 H Troponin I (<0.11 ng/ml) 0.25 *H Total Protein (6.3 - 8.2 g/dL) 6.5 Albumin (3.5 - 5.0 g/dL) 3.5 Globulin (1.9 - 4.2 gm/dL) 3.0 Albumin/Globulin Ratio (1.1 - 2.2 %) 1.2 Vitamin B12 (239 - 931 pg/mL) 639 25-OH Vitamin D Total (30 - 100 ng/ml) 7.4 L Folate (2.76 - 20.0 ng/mL) 4.8 TSH &T3 &Free T4 Intrp (0.27 - 4.20 uIU/mL) 3.780 Coagulation PT (9.4 - 12.5 SEC) 57.2 *H INR (0.90 - 1.17) 5.54 *H APTT (25 - 37 SEC) 102 *H Hematology CBC w Diff NO MAN DIFF REQ WBC (4.8 - 10.8 /CUMM) 12.5 H RBC (4.70 - 6.10 /CUMM) 2.61 L Hgb (14.0 - 18.0 G/DL) 8.0 L Hct (42 - 52 %) 24.3 L MCV (80.0 - 94.0 FL) 92.8 MCH (27.0 - 31.0 PG) 30.6 RDW (11.5 - 14.5 %) 17.4 H Plt Count (130 - 400 /CUMM) 329 MPV (7.4 - 10.4 FL) 9.8 Gran % (42.2 - 75.2 %) 90.6 H Lymphocytes % (20.5 - 51.1 %) 3.5 L Monocytes % (1.7 - 9.3 %) 5.2 Eosinophils % (0 - 5 %) 0.3 Basophils % (0.0 - 2.0 %) 0.4 Absolute Granulocytes (1.4 - 6.5 /CUMM) 11.3 H Absolute Lymphocytes (1.2 - 3.4 /CUMM) 0.4 L Absolute Monocytes (0.10 - 0.60 /CUMM) 0.7 H Absolute Eosinophils (0.0 - 0.7 /CUMM) 0 Absolute Basophils (0.0 - 0.2 /CUMM) 0 PUBS MCHC (33.0 - 37.0 G/DL) 33.0 Toxicology Serum Alcohol (<10 MG/DL) < 10.0 Acetone Level (NEGATIVE) NEGATIVE
--- NOTE | 2016-12-11 08:32 | CT SCAN REPORT ---
EXAMINATION: CT HEAD WITHOUT CONTRAST CLINICAL INFORMATION: Altered mental status. Elevated coags. Presumptive diagnosis of acute intracranial pathology such as hemorrhage COMPARISON: 12/09/2016 TECHNIQUE: Contiguous axial imaging was performed from the skull base to vertex without intravenous administration of contrast. Examination of the skull base and posterior fossa is somewhat limited due to motion artifact. Repeat images were obtained through this region, though the inferior aspects of the posterior fossa and middle cranial fossae were omitted. DLP: 743.8 mGy-cm FINDINGS: Again seen is hypoattenuation of the left occipital cortex focally extending through both the white and fortune matter, unchanged from prior study and most compatible with chronic changes of encephalomalacia. There is no evidence of acute intracranial hemorrhage or territorial infarction. No abnormal mass effect or midline shift is seen. Aside from the aforementioned abnormality in the left upper lobe, the fortune-white junction is well preserved. No extra-axial fluid collections are identified. Moderate enlargement of the ventricles, sulci, and extra-axial CSF spaces is in keeping with age-appropriate parenchymal volume loss. Calcific atherosclerosis is present within the cavernous segments of the internal carotid arteries. Globes are aphakic. The osseous structures and soft tissues are normal. The mastoid air cells and visualized portions of the paranasal sinuses are well aerated. IMPRESSION: No acute intracranial pathology. Limited assessment of the inferior half the posterior fossa due to motion artifact. 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
--- NOTE | 2016-12-11 09:00 | NUR ---
Patient presents with multiple areas of skin breakdown that were present on admission. Left buttock wound measures 0.7 X 0.5 cm and right buttock wound measures 1 X 0.5cm- unstageable pressure injuries with 100% yellow fill to wound bed. No drainage is noted and no s/s of infection- Ulcers are "kissing". A large eccymotic area is noted to his right hip which is dark purple in color which is most likely related to his multiple falls at home. Bilateral lower extremities present with multiple full thickness wounds which was caused by his walker when he fell at home per RN- Pt was instructed by Dr. Schrader previously to come to the ER for treatment however patient was non-compliant. Left lower extremity (rubin) wounds measure 3.5 X 5 cm and 5 X 6.5 cm- No visible bone or tendons currently noted- wound beds are mostly moist yellow slough with a scant amount of bloody drainage. Right lower extremity presents with multple full thickness wounds- (approx 8)- 4 are noted posteriorly. Medial ankle wound measures 5.5 X 4.5 cm, and largest wound anteriorally (rubin) measures 4.5 X 6 cm- all wounds are full thickness with moist yellow slough noted- No s/s of infection- No tendons or bone is currently exposed. Dr. Gacria in with this designer writer for assessment at this time. His recommendations are to apply Santyl followed by xeroform to the bilateral lower extremities, then Telfa and Kerlix. These wounds were dressed by this RN at this time. A duoderm was applied to the unstageable wounds to the buttocks and can be kept in place for 3 days and change prn. Nystatin already ordered by house staff and being applied to the rash to his groin. A generalized red rash is also noted to his trunk, back, and BLE which is related to his RAQUEL per RN and Housestaff. Impression: Full thickness wounds to his BLE and unstageable pressure injuries to his bilateral buttocks that were all present on admission. Eccymosis noted to his right hip. Recommendations: Please follow wound care recommendations as previosly ordered by Dr. Garcia which include: Applying a duoderm to his buttocks and change every 3 days and prn. Apply Santly to his BLE wounds FB Xeroform and a DPD. A catergory 2 mattress has been ordered by this RN. Nutrition consult. Frequent turning and repositioning. Please follow all additional pressure injury guidelines. Notify wound care with any further decline.
--- NOTE | 2016-12-11 09:01 | Cons- Wound Care ---
General Information and HPI Consulting Request Date of Consult: 12/11/16 Requested By: DANIEL RUIZ MD Reason for Consult: Multiple lower extremity ulcers and buttock ulcers present on admission History of Present Illness: Patient is an 80-year-old gentleman presently obtunded admitted after falls and found to have acute renal failure coagulopathy epistaxis and abnormal troponin. He was found to have multiple lower extremity ulcers and bilateral buttock ulcers. He is unable to provide any history. Allergies/Medications Allergies: Coded Allergies: No Known Allergies (12/09/16) Home Med List: Atorvastatin Calcium 80 MG TABLET 1 TAB PO DAILY CHOLESTEROL (Reported) Atropine Sulfate 1 % DROPS 1 DROP OS EOD LEFT EYE (Reported) Brimonidine Tartrate/Timolol (Combigan Eye Drops) 0.2 %-0.5 % DROPS 1 DROP OP BID BOTH EYES (Reported) Cephalexin 750 MG CAPSULE 1 CAP PO 4XDAILY ANTIBIOTIC (Reported) Dabigatran Etexilate Mesylate (Pradaxa 150 MG) 150 MG CAPSULE 1 CAP PO BID BLOOD THINNER (Reported) Fenofibrate Nanocrystallized (Tricor) 145 MG TABLET 1 TAB PO DAILY CHOLESTEROL /TRIGLYCERIDES (Reported) Glucosam/Chond/Hyalu/Cf Borate (Move Free Joint Health Tablet) (Unknown Strength ) TABLET (Unknown Dose) PO AD SUPPLEMENT (Reported) Insulin Glargine,Hum.rec.anlog (Lantus Solostar) (Unknown Strength) INSULN.PEN (Unknown Dose) SC DAILY DM (Reported) Mesalamine (Asacol Hd) 800 MG TABLET.DR 2 TAB PO BID GI (Reported) [place]-3/Dha/Epa/Fish Oil (Fish Oil 1,000 MG Softgel) (Unknown Strength) CAPSULE (Unknown Dose) PO DAILY SUPPLEMENT (Reported) Potassium Chloride 20 MEQ TAB.ER.PRT 1 TAB PO DAILY SUPPLEMENT (Reported) Silver Sulfadiazine (Silvadene) 1 % CREAM..G. 1 KEE TOP BID BILATERAL SHINS ( Reported) apply to affected area(s) Torsemide 100 MG TABLET 0.5 TAB PO DAILY DIURETIC (Reported) Valsartan/Hydrochlorothiazide (Valsartan-Hctz 320-25 MG Tab) 320 MG-25 MG TABLET 1 TAB PO DAILY BP (Reported) Review of Systems Review of Systems: Unobtainable Past History Travel History Traveled to [place] past 21 day No Medical History Neurological: NONE EENT: NONE Cardiovascular: AFIB, CAD, hypertension, hyperlipidemia Respiratory: NONE Gastrointestinal: NONE Hepatic: NONE Renal: NONE Musculoskeletal: BLE EXTREMITY INFECTION Psychiatric: NONE Endocrine: diabetes Blood Disorders: NONE Cancer(s): NONE COMPANY DANCER/Reproductive: NONE Surgical History Surgical History: non-contributory Psychosocial History Where Do You Live? Home Smoking Status: Former Smoker ETOH Use: heavy use Illicit Drug Use: denies illicit drug use ECHO Results (as available) EF% 65 Exam & Diagnostic Data Vital Signs and I&O Vital Signs Result Date Time Pulse 67 12/11 0600 Resp 24 12/11 0600 Pulse Ox 96 12/11 0026 O2 Delivery Nasal Cannula 12/11 0026 O2 Flow Rate 2.0L 12/11 0026 B/P 120/58 12/11 0000 Temp 97.8 12/11 0000 Intake & Output 12/11 0000 12/10 1600 12/10 0800 Intake Total 1300 2200 800 Output Total 650 800 500 Balance 650 1400 300 Intake, Blood 600 Product Intake, IV 1200 1200 700 Intake, Oral 100 400 100 Number 0 1 Bowel Movements Output, Urine 650 800 500 Patient 187 lb Weight Weight Bed scale Measurement Method Exam of his buttocks show there to be too unstageable ulcers over the right buttock 1 x 0.5 cm the left buttock 0.7 x 0.5 cm these have 100% yellow fill there is no undermining sinus tracking periwound erythema. Over both lower extremities are multiple ulcers the largest of the left measures 3.5 x 5 and 5 x 6.5 these have predominantly 100% slough some which has been there is no periwound erythema exposed bone or undermining. Over the right leg are again multiple ulcers the largest measuring 5.5 x 4.5 and 4.5 x 6 there are 4 smaller ulcers over the posterior right leg. Distal pulses are absent. There is no edema Assessment/Plan Impression/Plan: 80-year-old gentleman with history of diabetes multiple falls renal failure was found to have multiple ulcers present on admission. No prior history is obtainable. His exam is suggestive of complicating peripheral vascular disease. The unstageable buttock ulcers are secondary to pressure injury all of these were present on admission. Recommend offloading mattress and frequent turning. Buttock wounds can be treated with do a term changed every 2-3 days. Lower extremity wounds can be enzymatically debrided with Santyl and Xeroform. Once acute medical issues have improved bilateral arterial ultrasound would be appropriate to better evaluate his distal circulation Consult Acknowledgment - Thank you for your consult request.
--- NOTE | 2016-12-11 10:36 | NUR ---
PT HAD SNORING RESPIRATIONS, BRIEF APNEA, HR 30-50 THIS AM. HE MOANED TO DEEP STERNAL RUB . ICU RESIDENT AT BEDSIDE. LABS SENT STAT, ABGS DONE, CT HEAD DONE, SRIVASTAVA PLACED. DR ZAZUETA IN. IV BICARB D/C/D. IVF INFUSING AT 100 PER HOUR. FAMILY IN AND UPDATES GIVEN. DR. FELIPE AND WOUND NURSE IN FOR WOUND EVAL. RX ORDERED AND SPECIALTY BED ORDERED. PT HAS MILD INTERMITTENT TREMORS . HIS BODY RASH HAS INCREASED. BY 1000 HE IS ABLE TO TRY TO OPNE EYES, CAN SQUEEZE HANDS AND IS RESISTIVE TO NURSING CARE.
--- NOTE | 2016-12-11 11:44 | Cons- CRCU ---
YOLANDA GIBBS,EZEKIEL 12/11/16 1144: General Information and HPI Consulting Request Reason for Consult: Critically Ill Source of Information: patient, family, old records Exam Limitations: unable to give history History of Present Illness: Mr. Glasgow is an 80-year-old gentleman with past medical history of hypertension, hyperlipidemia, atrial fibrillation on Pradaxa, diabetes mellitus, former nicotine use quit over 20 years ago, daily alcohol use (drinks between 3-6 units of beer and wine per day), who was brought into the emergency department at [facility] on 12/09/2016 after episodes repeated of epistaxis, multiple recurrent falls and being mentally altered from baseline. An Additional conversation with the patient's daughter, Ashlyn revealed that over the last few weeks, the patient has had a gradual deterioration in his well being. Approximately three weeks ago he was started on a new medication ( torsamide) due to bilaterral leg edema. At this time he was also started on antibiotic by his conveyancer (cephalexin). In addition to this medication, the patient also continued with his regular prescribed medication. During this time, he also had a decreased PO intake, however continued consuming between 3-6 units of alcohol (beer and wine) on a daily basis. She endorses that the patient has had multiple falls over the last three weeks. She also sates that there has been the development of bilateral lower extremity foot ulcers owing to mechanical trauma with the patient's walker. Mr Glasgow went to the house of his son on 12/04/2016, for easter lunch. His son states that appeared more weak than normal. His son also reports that the patients gait had changed and noted he was was more unsteady on his feet. On the evening of 12/09/2016, the daughter the patient Ashlyn and her went to the house of Mr. Glasgow and noticed that he was altered, unkempt, and seemed to be confused and altered in mentation. She subsequently brought Mr. Glasgow with the help of her to the emergency department at [facility] for additional workup. Vitals at the time of admission: Blood pressure was 94/54, respiratory rate 15, patient was afebrile and had pulse in the low 50s. He was saturating well on room air. He was bolused with 2 L of nasal saline and responded well. Allergies/Medications Allergies: Coded Allergies: No Known Allergies (12/09/16) Home Med List: Atropine Sulfate 1 % DROPS 1 DROP OS EOD LEFT EYE (Reported) Brimonidine Tartrate/Timolol (Combigan Eye Drops) 0.2 %-0.5 % DROPS 1 DROP OP BID BOTH EYES (Reported) Folic Acid 1 MG TABLET 1 MG PO DAILY etoh detox Multivitamin (One Daily Multivitamin) 1 EACH TABLET 1 TAB PO DAILY multivitamin Nystatin 100,000 UNIT/GRAM CREAM..G. 1 KEE TOP TID rash Pantoprazole Sodium (Protonix) 40 MG TABLET.DR 40 MG IV DAILY GI bleed Potassium Chloride 20 MEQ TAB.ER.PRT 1 TAB PO DAILY SUPPLEMENT (Reported) Silver Sulfadiazine (Silvadene) 1 % CREAM..G. 1 KEE TOP BID BILATERAL SHINS ( Reported) apply to affected area(s) Current Medications: Current Medications Sig/Marco Start time Last Medication Dose Route Stop Time Status Admin Acetaminophen 650 MG Q6P PRN 12/10 0015 AC PO Acetaminophen/ 1 TAB Q6P PRN 12/10 0015 DC Hydrocodone Bitart PO Atorvastatin Calcium 80 MG 1700 12/10 1700 DC 12/10 PO 1734 Collagenase 1 KEE DAILY 12/11 0900 AC 12/11 TOP 0900 Dextrose/Sodium 1,000 ML Q10H 12/11 0815 AC 12/11 Chloride IV 0815 Folic Acid 1 MG DAILY 12/10 1000 AC 12/10 PO 1200 Hydromorphone HCl 1 MG Q6P PRN 12/10 0015 DC IV Insulin Aspart 0 TIDAC 12/10 0800 DC SC Insulin Detemir 10 UNITS DAILY 12/10 1000 DC 12/10 SC 1200 Insulin Human Regular 0 Q6 12/11 1800 AC SC Insulin Human Regular 0 ONCE ONE 12/11 1445 CAN IV 12/11 1446 Lorazepam 1 MG TID 12/11 1600 AC IV Lorazepam 1 MG BID 12/10 1000 DC 12/10 PO 2232 Lorazepam 0 Q1P PRN 12/10 0015 AC 12/11 IV 1317 Multivitamins 1 TAB DAILY 12/10 1000 AC 12/10 PO 1000 Nystatin 1 KEE TID 12/10 2200 AC 12/11 TOP 1326 Pantoprazole Sodium 40 MG DAILY 12/10 1519 AC 12/11 IV 1327 Phytonadione 5 MG ONCE ONE 12/11 1645 DC SC 12/11 1646 Phytonadione 5 MG ONE ONE 12/11 1600 CAN SC 12/11 1601 Phytonadione 10 MG ONCE ONE 12/11 1445 CAN SC 12/11 1446 Sodium Bicarbonate 75 MEQ Q6H 12/10 1445 DC 12/11 Dextrose/Sodium 1,000 ML IV 0540 Chloride Thiamine HCl 500 MG TID 12/11 1600 AC Sodium Chloride 100 ML IV 12/14 1059 Thiamine HCl 300 MG DAILY 12/11 1100 DC Sodium Chloride 100 ML IV 12/13 1012 Thiamine HCl 100 MG ONCE ONE 12/11 1045 CAN Sodium Chloride 100 ML IV 12/11 1144 Thiamine HCl 100 MG DAILY 12/10 1000 AC 12/10 PO 1200 Review of Systems Review of Systems Constitutional: Reports: see HPI, malaise, weakness. Denies: chills, diaphoresis. Cardiovascular: Denies: chest pain, edema, orthopena, palpitations. Respiratory: Denies: cough, hemoptysis, orthopnea, short of breath. GI: Denies: abdominal pain, bloating, constipation, diarrhea, distention, melena, nausea. Genitourinary: Denies: dysuria, frequency, hematuria, hesitation. Skin: Reports: change in skin color, lesions. Neurological/Psychological: Reports: cognitive dysfunction. Hematologic/Endocrine: Reports: bruising, bleeding, polyuria. Past History Travel History Traveled to [place] past 21 day No Medical History Neurological: NONE EENT: NONE Cardiovascular: AFIB, CAD, hypertension, hyperlipidemia Respiratory: NONE Gastrointestinal: NONE Hepatic: NONE Renal: NONE Musculoskeletal: BLE EXTREMITY INFECTION Psychiatric: NONE Endocrine: diabetes Blood Disorders: NONE Cancer(s): NONE CHANNEL TURNER/Reproductive: NONE Surgical History Surgical History: non-contributory Psychosocial History Where Do You Live? Home Who Do You Live With? Girlfriend 40 years. Services at Home: None Primary Language: Thai Smoking Status: Former Smoker ETOH Use: denies use (Daily consumption, 4-6 units), heavy use Illicit Drug Use: denies illicit drug use Functional Ability ADLs Needs Assist: dressing, eating, toileting, bathing. Ambulation: walker IADLs Unknown: shopping, housework, finances, food prep, telephone, transportation, medication admin. ECHO Results (as available) EF% 65 Exam & Diagnostic Data Last 24 Hrs of Vital Signs/I&O Vital Signs Date Time Temp Pulse Resp B/P B/P Pulse O2 O2 Flow FiO2 Mean Ox Delivery Rate 12/11 0800 95 Nasal 2.0L Cannula 12/11 0600 67 24 12/11 0400 45 22 12/11 0200 69 26 12/11 0052 48 24 12/11 0026 96 Nasal 2.0L Cannula 12/11 0000 97.8 67 20 120/58 12/11 0000 90 Room Air Room Air 12/11 0000 97.3 34 24 108/40 90 Room Air Room Air 12/10 2200 67 26 12/10 2000 97.9 34 18 Intake & Output 12/11 1600 12/11 0800 12/11 0000 Intake Total 1090 1300 Output Total 1400 650 Balance -310 650 Intake, IV 1090 1200 Intake, Oral 0 100 Number 0 0 Bowel Movements Output, Urine 1400 650 Patient 84.822 kg Weight Physical Exam General Appearance: cachetic, mild distress Head: evidence of injury, Erythematous Bilateral Lips. Eyes: Bilateral: PERRL, EOMI. Ears, Nose, Throat: normal pharynx, normal ENT inspection Neck: normal inspection, supple, full range of motion Respiratory: normal breath sounds, chest non-tender, no respiratory distress Cardiovascular: irregularly irregular Gastrointestinal: normal bowel sounds, soft, non-tender Neurologic/Psych: disoriented x 3 Last 48 Hrs of Labs/Lee: Laboratory Tests 12/11/16 1741: PT Pending, INR Pending, APTT Pending, Fibrinogen Activity Pending, Fibrin Degrad Products Pending 12/11/16 1442: PT 31.7 H, INR 3.05 H, APTT 56 H, CBC w Diff NO MAN DIFF REQ, RBC 2.53 L, MCV 88.7, MCH 30.2, RDW 18.7 H, MPV 8.7, Gran % 85.3 H, Lymphocytes % 4.1 L, Monocytes % 7.3, Eosinophils % 3.1, Basophils % 0.2, Absolute Granulocytes 8.3 H, Absolute Lymphocytes 0.4 L, Absolute Monocytes 0.7 H, Absolute Eosinophils 0.3, Absolute Basophils 0, PUBS MCHC 34.1 12/11/16 1320: Anion Gap 11, Estimated GFR 23 L, BUN/Creatinine Ratio 54.1 H, CBC w Diff NO MAN DIFF REQ, RBC 2.69 L, MCV 88.0, MCH 29.9, RDW 18.8 H, MPV 8.9, Gran % 86.7 H, Lymphocytes % 3.0 L, Monocytes % 6.9, Eosinophils % 3.4, Basophils % 0 L, Absolute Granulocytes 7.3 H, Absolute Lymphocytes 0.3 L, Absolute Monocytes 0.6, Absolute Eosinophils 0.3, Absolute Basophils 0, PUBS MCHC 34.0 12/11/16 0800: Anion Gap 13, Estimated GFR 19 L, BUN/Creatinine Ratio 47.5 H, Iron 42 L, TIBC 341, Ferritin 734.0 H, Lactate Dehydrogenase 714 H, Vitamin B12 583, Folate 5.9 12/11/16 0800: Ammonia 9 12/11/16 0744: Haptoglobin Pending 12/11/16 0716: Troponin I Cancelled 12/11/16 0710: pH 7.47 H, pCO2 28 L, pO2 125 H, HCO3 20 L, ABG O2 Sat (Measured) 97.0, Carboxyhemoglobin 0.3 L, O2 Concentration % 2 LPM, O2 Delivery Method NC, Phlebotomy Draw Site RIGHT BRACHIAL 12/11/16 0310: Anion Gap 17 H, Estimated GFR 17 L, Glucose 187 H, Calcium 9.6, Phosphorus 4.9 H, Magnesium 2.9 H, Total Bilirubin 0.8, AST 46, ALT 44, Troponin I 0.43 * H, Albumin 2.8 L, CBC w Diff MAN DIFF ORDERED, RBC 2.97 L, MCV 89.2, MCH 30.1, RDW 18.7 H, MPV 9.3, Gran % 83.1 H, Lymphocytes % 5.5 L, Monocytes % 6.7, Eosinophils % 4.4, Basophils % 0.3, Absolute Granulocytes 7.0 H, Segmented Neutrophils 94 H, Absolute Lymphocytes 0.5 L, Lymphocytes 5 L, Absolute Monocytes 0.6, Eosinophils 1, Absolute Eosinophils 0.4, Absolute Basophils 0, Nucleated RBCs 1 H, Platelet Estimate ADEQUATE, Polychromasia 1+, Ovalocytes 1+ , PUBS MCHC 33.7 12/10/16 1600: Anion Gap 18 H, Estimated GFR 12 L, BUN/Creatinine Ratio 52.2 H, Phosphorus 5.6 H, Magnesium 3.0 H, CBC w Diff NO MAN DIFF REQ, RBC 2.62 L, MCV 89.9, MCH 30.4, RDW 17.0 H, MPV 9.2, Gran % 87.9 H, Lymphocytes % 3.6 L, Monocytes % 5.7, Eosinophils % 2.6, Basophils % 0.2, Absolute Granulocytes 9.0 H, Absolute Lymphocytes 0.4 L, Absolute Monocytes 0.6, Absolute Eosinophils 0.3, Absolute Basophils 0, PUBS MCHC 33.8 12/10/16 0828: CBC w Diff NO MAN DIFF REQ, RBC 2.02 L, MCV 93.1, MCH 30.6, RDW 17.0 H, MPV 9.3, Gran % 85.6 H, Lymphocytes % 5.2 L, Monocytes % 6.5, Eosinophils % 2.3, Basophils % 0.4, Absolute Granulocytes 7.5 H, Absolute Lymphocytes 0.5 L, Absolute Monocytes 0.6, Absolute Eosinophils 0.2, Absolute Basophils 0, PUBS MCHC 32.9 L 12/10/16 0547: Anion Gap 18 H, Estimated GFR 9 L, BUN/Creatinine Ratio 32.9 H, Phosphorus 5.8 H, Creatine Kinase 463 H, Troponin I 0.24 *H, PT 57.3 *H, INR 5.55 *H, CBC w Diff NO MAN DIFF REQ, RBC 2.02 L, MCV 93.0, MCH 31.1 H, RDW 17.4 H, MPV 8.8 , Gran % 86.1 H, Lymphocytes % 5.4 L, Monocytes % 5.9, Eosinophils % 2.3, Basophils % 0.3, Absolute Granulocytes 7.7 H, Absolute Lymphocytes 0.5 L, Absolute Monocytes 0.5, Absolute Eosinophils 0.2, Absolute Basophils 0, PUBS MCHC 33.5 12/10/16 0100: Troponin I 0.24 *H 12/09/16 2153: Urinalysis LIGHT H, Urine Color YEL, Urine Clarity CLEAR, Urine pH 6.0, Ur Specific [place] 1.015, Urine Protein NEG, Urine Ketones NEG, Urine Nitrite NEG, Urine Bilirubin NEG, Urine Urobilinogen 0.2, Ur Leukocyte Esterase NEG, Ur Microscopic SEDIMENT EXAMINED, Urine RBC 1-3, Ur Epithelial Cells RARE, Urine Mucus FEW, Urine Hemoglobin TRACE-INTACT H, Urine Glucose NEG 12/09/16 1945: Lactic Acid 1.2 12/09/16 1750: pH 7.34 L, pCO2 22 L, pO2 110 H, HCO3 12 L, ABG O2 Sat (Measured) 97.0, P-50 (Temp Corrected) N, Carboxyhemoglobin 0.3 L, O2 Concentration % R/A, Temperature 97.6, Phlebotomy Draw Site RIGHT BRACHIAL Microbiology 12/10 1100 GI: Surveillance Culture - COMP 12/10 0030 UPPER RESP: Surveillance Culture - COMP Diagnostic Data CXR Results SERVICE DATE: 12/11/16 EXAM TYPE: RAD - XRY-PORTABLE CHEST XRAY EXAMINATION: XR PORTABLE CHEST CLINICAL INFORMATION: Pneumothorax. Shortness of breath. COMPARISON: 12/09/2016 TECHNIQUE: Portable AP view of the chest was obtained. FINDINGS: No pneumothorax. Lungs appear clear with no edema consolidation or effusion. Stable cardiomediastinal silhouette. IMPRESSION: Unremarkable examination. DICTATED BY: KARI URIAS MD Other Results SERVICE DATE: 12/11/16 EXAM TYPE: CAT - CT HEAD WO IV CONTRAST EXAMINATION: CT HEAD WITHOUT CONTRAST CLINICAL INFORMATION: Altered mental status. Elevated coags. Presumptive diagnosis of acute intracranial pathology such as hemorrhage COMPARISON: 12/09/2016 TECHNIQUE: Contiguous axial imaging was performed from the skull base to vertex without intravenous administration of contrast. Examination of the skull base and posterior fossa is somewhat limited due to motion artifact. Repeat images were obtained through this region, though the inferior aspects of the posterior fossa and middle cranial fossae were omitted. DLP: 743.8 mGy-cm FINDINGS: Again seen is hypoattenuation of the left occipital cortex focally extending through both the white and fortune matter, unchanged from prior study and most compatible with chronic changes of encephalomalacia. There is no evidence of acute intracranial hemorrhage or territorial infarction. No abnormal mass effect or midline shift is seen. Aside from the aforementioned abnormality in the left upper lobe, the fortune-white junction is well preserved. No extra-axial fluid collections are identified. Moderate enlargement of the ventricles, sulci, and extra-axial CSF spaces is in keeping with age-appropriate parenchymal volume loss. Calcific atherosclerosis is present within the cavernous segments of the internal carotid arteries. Globes are aphakic. The osseous structures and soft tissues are normal. The mastoid air cells and visualized portions of the paranasal sinuses are well aerated. IMPRESSION: No acute intracranial pathology. Limited assessment of the inferior half the posterior fossa due to motion artifact. 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 DICTATED BY: MARLI JOE MD Assessment/Plan Impression/Plan: Mr. Glasgow is an 80-year-old gentleman with past medical history of hypertension, hyperlipidemia, atrial fibrillation on Pradaxa, diabetes mellitus, former nicotine use quit over 20 years ago, daily alcohol use (drinks between 3-6 units of beer and wine per day), who was brought into the emergency department at [facility] on 12/09/2016 after episodes repeated of epistaxis, multiple recurrent falls and being mentally altered from baseline. The patient is currently admitted to the intensive care unit for further management. He was originally a telemetry. This morning when I saw the patient he was alert however very somnolent. He was able to follow motor and verbal commands although had a hard time maintaining concentration. The patient was unable to elicit any complaints. Neurology Patient continues to be altered. Likely to be multifactorial: Acute kidney injury, metabolic acidosis and uremia. Likely the result of combination of new medications thiazide diuretic and loop diuretic in combination with recent blood loss and poor PO intake. Likely complocated my continued use of alcohol. An urgent neurology consult was placed. Nephrology Improvements in BUN (202-->191-->146) and creatinine (7.4-->5.8-->2.7) noted. Renal consultation obtained. Continue IV hydration: D5W1/2 NS @100 mL/Hr Urology Initial attempts to have inserted a Mckinney or successful although the patient attempted on multiple occasions to pull the Mckinney out. Patient's family was at bedside expressed implicitly that they woul would not allow for a Mckinney to be placed. After prolonged discussion it was agreed that the Mckinney would be removed. Approximately 1 hour after Mckinney was removed the patient developed gross hematuria. A urology consult was placed. Hematology On day one of admission the patient had to be transfused 2 units of PRBCs. He responded adequately. This afternoon after an episode of hematuria owing to markedly elevated INR show a fall in H&H (7.0/22.4). 1 unit of PRBC, has been ordered. The patient was guaiac positive and may have had some docs stool as an outpatient could possibly be losing blood through GI losses. We have obtained a formal GI consultation. Peripharel smear, Lyme titre, tick borne disease ordered. Anemia work up: Iron Studies, folate, B12. LDH and haptoglobin. Cardiology Troponins trended to the peak of: 0.25-->0.24-->0.24. Likely elevated in the setting of RAQUEL and decrease troponin clearance. Echocardiogram showed no regional wall abnormalities and ejection fraction greater than 60%. Owing to the history of atrial fibrillation we will continue to hold Pradaxa for now. We may consider resuming this medication or beginning the patient on heparin for anticoagulation once the patient's mental status improves. Hold Pradaxa for now. Endocrinology The patient was originally placed on Levemir 10 units daily. We continued the patient on a NovoLog sliding scale. This morning owing to his altered mentation with currently made nothing by mouth. He is currently on D5 half-normal saline. Novolin nothing by mouth scale. Finger sticks: 130-->205-->122-->107 Dermatology The patient did have bilateral avulsion bones anterior on the lotions. A formal wound care consult was obtained this morning. Lower extremity wounds to be debrided with Santyl and Xeroform. Patient may also benefit from an arterial ultrasound for evaluation of distal circulations once patient's stabilizes. #DVT prophylaxis Hold Pradaxa for now. #Code: Full code Consult Acknowledgment - Thank you for your consult request. WILMAN RILEY MD 12/11/16 1213: General Information and HPI Consulting Request Date of Consult: 12/11/16 Requested By: Dr. Fisher Assessment/Plan Other Findings/Comments: Wilman Merida M.D. have examined this patient, reviewed available EMR data, personally reviewed images, discussed with resident/PA/INTERNATIONAL BANK MANAGER, discussed management plan with housestaff and nursing staff, discussed managment plan all of healthcare providers, discussed management plan with patient and/or family, agreed with resident/PA/INTERNATIONAL BANK MANAGER. The past history and parts of the chart have been autopopulated. Gen - lethargic Heent - blood products on lips and mouth cvs - s1, s2, systolic murmur lungs - rare rhonchi at bases abd - trunkal rash and inner forearms ext - bilateral dressings intact Impression 80 year old man * altered mental status - differential of alcoholism, hypernatremia, renal failure * RAQUEL and hypernatremia * rash * anemia with acute blood loss, unclear etiology, pradaxa stopped * systolic murmur Plan Respiratory - aspiration precautions - keep spo2 >92% ID - monitor fevers, wbc - peripheral smear, check lyme titers and tick-borne diseases CVS - monitor hemodynamics Heme - iron studies, b12, folate, peripheral smear, ldh, haptoglobin - anemia workup - monitor cbc and coags Metabolic - ins/outs - f/u nephrology Alimentary - NPO Neuro - neurology consultation TTS 55 min d/w family at bedside Consult Acknowledgment - Thank you for your consult request. Neuro - neurology consultation TTS 55 min d/w family at bedside Consult Acknowledgment - Thank you for your consult request.
--- NOTE | 2016-12-11 13:36 | PN- Cardiology ---
Subjective Subjective: The patient remains quite somnolent this morning. His longtime girlfriend was at the bedside this morning and helped provide me with some additional history. She tells me he usually drinks approximately 5 to 6 glasses of wine daily. Also had some decreased p.o. intake prior to admission. Objective Vital Signs and I&Os Vital Signs Date Time Temp Pulse Resp B/P B/P Pulse O2 O2 Flow FiO2 Mean Ox Delivery Rate 12/11 08 95 Nasal 2.0L Cannula 12/11 0600 67 24 12/11 0400 45 22 12/11 0200 69 26 12/11 0052 48 24 12/11 0026 96 Nasal 2.0L Cannula 12/11 0000 97.8 67 20 120/58 12/11 0000 90 Room Air Room Air 12/11 0000 97.3 34 24 108/40 90 Room Air Room Air 12/10 2200 67 26 12/10 2000 97.9 34 18 12/10 1600 98.2 58 20 120/58 95 Room Air Intake & Output 12/11 1600 12/11 0800 12/11 0000 12/10 1600 12/10 0800 12/10 0000 Intake Total 1090 1300 2200 800 1000 Output Total 1400 650 800 500 Balance -186 786 4338 300 1000 Intake, Blood 600 Product Intake, IV 1090 1200 8100 819 4657 Intake, Oral 0 100 400 100 0 Number 0 0 1 Bowel Movements Output, Urine 1400 650 800 500 Patient 187 lb 187 lb 192 lb Weight Weight Bed scale Reported by Patient Measurement Method Physical Exam: General: Lethargic. Eyes: no scleral icterus HEENT: No jugular venous distention or abnormal jugular venous pulsations. Cardiovascular: Normal intensity S1/S2. irregular, I/ systolic murmur Respiratory: Lungs clear to auscultation bilaterally. Abdomen: no guarding or rebound tenderness. Musculoskeletal: No clubbing or cyanosis noted, No edema Skin: lower extremity ulcerations were noted Neurologic: lethargic Lymph: No gross lymphadenopathy Current Medications: Current Medications Sig/Marco Start time Last Medication Dose Route Stop Time Status Admin Acetaminophen 650 MG Q6P PRN 12/10 0015 AC PO Acetaminophen/ 1 TAB Q6P PRN 12/10 14 DC Hydrocodone Bitart PO Atorvastatin Calcium 80 MG 1700 12/10 1700 DC 12/10 PO 1734 Collagenase 1 KEE DAILY 12/11 0900 AC 12/11 TOP 0900 Dextrose/Sodium 1,000 ML Q10H 12/11 0815 AC 12/11 Chloride IV 0815 Dextrose/Sodium 1,000 ML Q6H 12/10 1430 DC Chloride IV Folic Acid 1 MG DAILY 12/10 1000 AC 12/10 PO 1200 Hydromorphone HCl 1 MG Q6P PRN 12/10 0015 DC IV Insulin Aspart 0 TIDAC 12/10 0800 AC SC Insulin Detemir 10 UNITS DAILY 12/10 1000 AC 12/10 SC 1200 Lorazepam 1 MG TID 12/11 1600 AC IV Lorazepam 1 MG BID 12/10 1000 DC 12/10 PO 2232 Lorazepam 0 Q1P PRN 12/10 0015 AC 12/11 IV 1317 Multivitamins 1 TAB DAILY 12/10 1000 AC 12/10 PO 1000 Nystatin 1 KEE TID 12/10 2200 AC 12/11 TOP 1326 Pantoprazole Sodium 40 MG DAILY 12/10 1519 AC 12/11 IV 1327 Sodium Bicarbonate 75 MEQ Q6H 12/10 1445 DC 12/11 Dextrose/Sodium 1,000 ML IV 0540 Chloride Sodium Chloride 1,000 ML .[id number] 12/09 2015 DC 12/10 IV 0425 Thiamine HCl 500 MG TID 12/11 1600 AC Sodium Chloride 100 ML IV 12/14 1059 Thiamine HCl 300 MG DAILY 12/11 1100 DC Sodium Chloride 100 ML IV 12/13 1012 Thiamine HCl 100 MG ONCE ONE 12/11 1045 CAN Sodium Chloride 100 ML IV 12/11 1144 Thiamine HCl 100 MG DAILY 12/10 1000 AC 12/10 PO 1200 Results Last 48 Hrs of Labs/Mics: Laboratory Tests 12/11/16 1320: Sodium Pending, Potassium Pending, Chloride Pending, Carbon Dioxide Pending, Anion Gap Pending, BUN Pending, Creatinine Pending, BUN/Creatinine Ratio Pending , CBC w Diff Pending, WBC Pending, RBC Pending, Hgb Pending, Hct Pending, MCV Pending, MCH Pending, RDW Pending, Plt Count Pending, MPV Pending, PUBS MCHC Pending 12/11/16 0800: Anion Gap 13, Estimated GFR 19 L, BUN/Creatinine Ratio 47.5 H, Iron 42 L, TIBC 341, Ferritin 734.0 H, Lactate Dehydrogenase 714 H, Vitamin B12 Pending, Folate Pending 12/11/16 0800: Ammonia 9 04/24/17 0744: Haptoglobin Pending 12/11/16 0716: Troponin I Cancelled 12/11/16 0710: pH 7.47 H, pCO2 28 L, pO2 125 H, HCO3 20 L, ABG O2 Sat (Measured) 97.0, Carboxyhemoglobin 0.3 L, O2 Concentration % 2 LPM, O2 Delivery Method NC, Phlebotomy Draw Site RIGHT BRACHIAL 12/11/16 0310: Anion Gap 17 H, Estimated GFR 17 L, Glucose 187 H, Calcium 9.6, Phosphorus 4.9 H, Magnesium 2.9 H, Total Bilirubin 0.8, AST 46, ALT 44, Troponin I 0.43 * H, Albumin 2.8 L, CBC w Diff MAN DIFF ORDERED, RBC 2.97 L, MCV 89.2, MCH 30.1, RDW 18.7 H, MPV 9.3, Gran % 83.1 H, Lymphocytes % 5.5 L, Monocytes % 6.7, Eosinophils % 4.4, Basophils % 0.3, Absolute Granulocytes 7.0 H, Segmented Neutrophils 94 H, Absolute Lymphocytes 0.5 L, Lymphocytes 5 L, Absolute Monocytes 0.6, Eosinophils 1, Absolute Eosinophils 0.4, Absolute Basophils 0, Nucleated RBCs 1 H, Platelet Estimate ADEQUATE, Polychromasia 1+, Ovalocytes 1+ , PUBS MCHC 33.7 12/10/16 1600: Anion Gap 18 H, Estimated GFR 12 L, BUN/Creatinine Ratio 52.2 H, Phosphorus 5.6 H, Magnesium 3.0 H, CBC w Diff NO MAN DIFF REQ, RBC 2.62 L, MCV 89.9, MCH 30.4, RDW 17.0 H, MPV 9.2, Gran % 87.9 H, Lymphocytes % 3.6 L, Monocytes % 5.7, Eosinophils % 2.6, Basophils % 0.2, Absolute Granulocytes 9.0 H, Absolute Lymphocytes 0.4 L, Absolute Monocytes 0.6, Absolute Eosinophils 0.3, Absolute Basophils 0, PUBS MCHC 33.8 12/10/16 0828: CBC w Diff NO MAN DIFF REQ, RBC 2.02 L, MCV 93.1, MCH 30.6, RDW 17.0 H, MPV 9.3, Gran % 85.6 H, Lymphocytes % 5.2 L, Monocytes % 6.5, Eosinophils % 2.3, Basophils % 0.4, Absolute Granulocytes 7.5 H, Absolute Lymphocytes 0.5 L, Absolute Monocytes 0.6, Absolute Eosinophils 0.2, Absolute Basophils 0, PUBS MCHC 32.9 L 12/10/16 0547: Anion Gap 18 H, Estimated GFR 9 L, BUN/Creatinine Ratio 32.9 H, Phosphorus 5.8 H, Creatine Kinase 463 H, Troponin I 0.24 *H, PT 57.3 *H, INR 5.55 *H, CBC w Diff NO MAN DIFF REQ, RBC 2.02 L, MCV 93.0, MCH 31.1 H, RDW 17.4 H, MPV 8.8 , Gran % 86.1 H, Lymphocytes % 5.4 L, Monocytes % 5.9, Eosinophils % 2.3, Basophils % 0.3, Absolute Granulocytes 7.7 H, Absolute Lymphocytes 0.5 L, Absolute Monocytes 0.5, Absolute Eosinophils 0.2, Absolute Basophils 0, PUBS MCHC 33.5 12/10/16 0100: Troponin I 0.24 *H 12/09/16 2153: Urinalysis LIGHT H, Urine Color YEL, Urine Clarity CLEAR, Urine pH 6.0, Ur Specific [place] 1.015, Urine Protein NEG, Urine Ketones NEG, Urine Nitrite NEG, Urine Bilirubin NEG, Urine Urobilinogen 0.2, Ur Leukocyte Esterase NEG, Ur Microscopic SEDIMENT EXAMINED, Urine RBC 1-3, Ur Epithelial Cells RARE, Urine Mucus FEW, Urine Hemoglobin TRACE-INTACT H, Urine Glucose NEG 12/09/16 1945: Lactic Acid 1.2 12/09/16 1750: pH 7.34 L, pCO2 22 L, pO2 110 H, HCO3 12 L, ABG O2 Sat (Measured) 97.0, P-50 (Temp Corrected) N, Carboxyhemoglobin 0.3 L, O2 Concentration % R/A, Temperature 97.6, Phlebotomy Draw Site RIGHT BRACHIAL 12/09/16 1635: Ammonia 17 12/09/16 1635: Anion Gap 23 H, Estimated GFR 7 L, BUN/Creatinine Ratio 27.3 H, Glucose 123 H, Hemoglobin A1c 5.8, Lactic Acid 4.6 H, Calcium 9.5, Magnesium 3.1 H, Total Bilirubin 0.8, AST 51, ALT 49, Alkaline Phosphatase 46, Creatine Kinase 556 H, Troponin I 0.25 *H, Total Protein 6.5, Albumin 3.5, Globulin 3.0, Albumin/ Globulin Ratio 1.2, Vitamin B12 639, 25-OH Vitamin D Total 7.4 L, Folate 4.8, TSH &T3 &Free T4 Intrp 3.780, PT 57.2 *H, INR 5.54 *H, APTT 102 *H, CBC w Diff NO MAN DIFF REQ, RBC 2.61 L, MCV 92.8, MCH 30.6, RDW 17.4 H, MPV 9.8, Gran % 90.6 H, Lymphocytes % 3.5 L, Monocytes % 5.2, Eosinophils % 0.3, Basophils % 0.4, Absolute Granulocytes 11.3 H, Absolute Lymphocytes 0.4 L, Absolute Monocytes 0.7 H, Absolute Eosinophils 0, Absolute Basophils 0, PUBS MCHC 33.0, Serum Alcohol < 10.0, Acetone Level NEGATIVE Microbiology 12/10 1100 GI: Surveillance Culture - COMP 12/10 0030 UPPER RESP: Surveillance Culture - COMP Recent Imaging Studies: telemetry tracings were personally reviewed and showed atrial fibrillation with some bradycardia and short pauses Echo: Normal LV/ RV function with some pulmonary hypertension CXR: IMPRESSION: Unremarkable examination. Assessment/Plan Assessment/Plan 1. Altered mental status /encephalopathy 2. Acute kidney injury with evidence of hypovolemia 3. Persistent atrial fibrillation on outpatient anticoagulation with Pradaxa 4. Nonspecific troponin elevation in the setting of acute kidney injury without obvious evidence of ischemia or acute coronary syndrome 5. Epistaxis and anemia requiring transfusion 6. Alcohol dependence 7. Lower extremity ulcerations with history of lower extremity edema for which he was prescribed a short torsemide course but he reportedly continued on the torsemide 8. Hypernatremia 9. Baseline bradycardia without AV rick blockade consistent with underlying conduction disease Review of telemetry does show low level bradycardia with short pauses consistent with the patient's history of known baseline conduction disease. He remains off AV rick blockers and remains hemodynamically stable; no obvious indication for urgent permanent pacemaker at this time. He has no regional wall motion abnormalities on echocardiogram and the elevated troponins are nonspecific in the setting of acute kidney injury ; acute coronary syndrome is not suspected at this time. Pradaxa remains on hold for now; If INR remains elevated despite holding Pradaxa it may suggest a secondary vitamin K deficient coagulopathy. Would monitor closely for evidence of withdrawal symptoms given his significant daily ETOH intake. The case was discussed with the covering house staff at length this morning. Rey Morrison MD [facility] Continue telemetry? Yes
[2016-12-11 13:55] LABS: ABSOLUTE BASOPHIL COUNT 0 /CUMM (0.0-0.2); ABSOLUTE EOSINOPHIL COUNT 0.3 /CUMM (0.0-0.7); ABSOLUTE GRANULOCYTE CT 7.3 /CUMM (1.4-6.5); ABSOLUTE LYMPH COUNT 0.3 /CUMM (1.2-3.4); ABSOLUTE MONOCYTE COUNT 0.6 /CUMM (0.10-0.60); BASOPHIL % 0 % (0.0-2.0); EOSINOPHIL % 3.4 % (0-5); HEMATOCRIT 23.6 % (42-52); MEAN CORPUSCULAR HGB 29.9 PG (27.0-31.0); MEAN PLATELET VOLUME 8.9 FL (7.4-10.4); PLATELET COUNT 212 /CUMM (130-400); RBC DISTRIBUTION WIDTH 18.8 % (11.5-14.5); RED BLOOD CELL CT 2.69 /CUMM (4.70-6.10); WHITE BLOOD CELL COUNT 8.4 /CUMM (4.8-10.8)
[2016-12-11 14:17] LABS: GRANULOCYTE % 86.7 % (42.2-75.2)
[2016-12-11 15:00] LABS: ABSOLUTE BASOPHIL COUNT 0 /CUMM (0.0-0.2); ABSOLUTE EOSINOPHIL COUNT 0.3 /CUMM (0.0-0.7); ABSOLUTE GRANULOCYTE CT 8.3 /CUMM (1.4-6.5); ABSOLUTE LYMPH COUNT 0.4 /CUMM (1.2-3.4); ABSOLUTE MONOCYTE COUNT 0.7 /CUMM (0.10-0.60); BASOPHIL % 0.2 % (0.0-2.0); EOSINOPHIL % 3.1 % (0-5); HEMATOCRIT 22.4 % (42-52); MEAN CORPUSCULAR HGB 30.2 PG (27.0-31.0); MEAN CORPUSCULAR HGB CONC 34.1 G/DL (33.0-37.0); MEAN CORPUSCULAR VOLUME 88.7 FL (80.0-94.0); MEAN PLATELET VOLUME 8.7 FL (7.4-10.4); PLATELET COUNT 214 /CUMM (130-400); RBC DISTRIBUTION WIDTH 18.7 % (11.5-14.5); RED BLOOD CELL CT 2.53 /CUMM (4.70-6.10); WHITE BLOOD CELL COUNT 9.7 /CUMM (4.8-10.8)
--- NOTE | 2016-12-11 15:02 | PN- Att Addend ---
Attending MD Review Statement Attending Statement Attending MD Statement: examined this patient, discuss w/resident/PA/ENERGY DERIVATIVES TRADER, agreed w/resident/PA/ENERGY DERIVATIVES TRADER, discussed with family, reviewed EMR data (avail), discussed w/ nursing Attending Assessment/Plan: Laboratory Tests 12/11/16 1442: PT Pending, INR Pending, APTT Pending, CBC w Diff Pending, WBC Pending, RBC Pending, Hgb Pending, Hct Pending, MCV Pending, MCH Pending, RDW Pending, Plt Count Pending, MPV Pending, PUBS MCHC Pending 12/11/16 1320: Sodium Pending, Potassium Pending, Chloride Pending, Carbon Dioxide Pending, Anion Gap Pending, BUN Pending, Creatinine Pending, BUN/Creatinine Ratio Pending , CBC w Diff NO MAN DIFF REQ, RBC 2.69 L, MCV 88.0, MCH 29.9, RDW 18.8 H, MPV 8.9, Gran % 86.7 H, Lymphocytes % 3.0 L, Monocytes % 6.9, Eosinophils % 3.4, Basophils % 0 L, Absolute Granulocytes 7.3 H, Absolute Lymphocytes 0.3 L, Absolute Monocytes 0.6, Absolute Eosinophils 0.3, Absolute Basophils 0, PUBS MCHC 34.0 12/11/16 0800: Anion Gap 13, Estimated GFR 19 L, BUN/Creatinine Ratio 47.5 H, Iron 42 L, TIBC 341, Ferritin 734.0 H, Lactate Dehydrogenase 714 H, Vitamin B12 583, Folate 5.9 12/11/16 0800: Ammonia 9 12/11/16 0744: Haptoglobin Pending 12/11/16 0716: Troponin I Cancelled 12/11/16 0710: pH 7.47 H, pCO2 28 L, pO2 125 H, HCO3 20 L, ABG O2 Sat (Measured) 97.0, Carboxyhemoglobin 0.3 L, O2 Concentration % 2 LPM, O2 Delivery Method NC, Phlebotomy Draw Site RIGHT BRACHIAL 12/11/16 0310: Anion Gap 17 H, Estimated GFR 17 L, Glucose 187 H, Calcium 9.6, Phosphorus 4.9 H, Magnesium 2.9 H, Total Bilirubin 0.8, AST 46, ALT 44, Troponin I 0.43 * H, Albumin 2.8 L, CBC w Diff MAN DIFF ORDERED, RBC 2.97 L, MCV 89.2, MCH 30.1, RDW 18.7 H, MPV 9.3, Gran % 83.1 H, Lymphocytes % 5.5 L, Monocytes % 6.7, Eosinophils % 4.4, Basophils % 0.3, Absolute Granulocytes 7.0 H, Segmented Neutrophils 94 H, Absolute Lymphocytes 0.5 L, Lymphocytes 5 L, Absolute Monocytes 0.6, Eosinophils 1, Absolute Eosinophils 0.4, Absolute Basophils 0, Nucleated RBCs 1 H, Platelet Estimate ADEQUATE, Polychromasia 1+, Ovalocytes 1+ , PUBS MCHC 33.7 12/10/16 1600: Anion Gap 18 H, Estimated GFR 12 L, BUN/Creatinine Ratio 52.2 H, Phosphorus 5.6 H, Magnesium 3.0 H, CBC w Diff NO MAN DIFF REQ, RBC 2.62 L, MCV 89.9, MCH 30.4, RDW 17.0 H, MPV 9.2, Gran % 87.9 H, Lymphocytes % 3.6 L, Monocytes % 5.7, Eosinophils % 2.6, Basophils % 0.2, Absolute Granulocytes 9.0 H, Absolute Lymphocytes 0.4 L, Absolute Monocytes 0.6, Absolute Eosinophils 0.3, Absolute Basophils 0, PUBS MCHC 33.8 Vital Signs Date Time Temp Pulse Resp B/P B/P Pulse O2 O2 Flow FiO2 Mean Ox Delivery Rate 12/11 0800 95 Nasal 2.0L Cannula 12/11 0600 67 24 12/11 0400 45 22 12/11 0200 69 26 12/11 0052 48 24 12/11 0026 96 Nasal 2.0L Cannula 12/11 0000 97.8 67 20 120/58 12/11 0000 90 Room Air Room Air 12/11 0000 97.3 34 24 108/40 90 Room Air Room Air 12/10 2200 67 26 12/10 2000 97.9 34 18 12/10 1600 98.2 58 20 120/58 95 Room Air Patient seen and examined at bedside. Discussed with patient's family at bedside the care plan. Patient is more confused today compared with yesterday and is less alert. Family wanted the Mckinney catheter removed. Nephrology explained them that why we have the Mckinney catheter in him because we wanted to monitor his intake and output given his acute kidney injury. Discussed with nephrology and we will take out the Mckinney today. Patients renal functions are much better today and creatinine is down to 3.2 as well as BUN is down to 152 but his sodium has gone up to 151 so we have made some changes to his IV fluids. Also his hemoglobin has gone up after transfusion yesterday. We will monitor it closely. After removal of the Mckinney patient had the hematuria with bright red blood. This likely is secondary to possible trauma from the removal of the Mckinney along with him being on Pradaxa with the renal failure. I will discuss with Dr. Thompson about possibility of giving FFP's given that his Pradaxa would stay longer in the system given his renal failure. We will also repeat his Cbc right now and follow-up on that. I have discussed these findings with patient's daughter Ashlyn over the phone and explained her that Dr. Thompson would be taking over the care of the patient in ICU.
[2016-12-11 15:14] LABS: PT 31.7 SEC (9.4-12.5); PTT 56 SEC (25-37)
[2016-12-11 15:15] LABS: GRANULOCYTE % 85.3 % (42.2-75.2)
--- NOTE | 2016-12-11 15:18 | Cons- Urology ---
General Information and HPI Consulting Request Date of Consult: 12/11/16 Requested By: Medical DANIEL Vyas MD Reason for Consult: Gross hematuria Source of Information: family, old records Exam Limitations: no limitations, unable to give history History of Present Illness: This patient presented to the ER with weakness and epistaxis. He was found to have a significant coagulopathy, renal failure with a creatinine of 7.4, and hypotension and was admitted to the medical service. Today a calhoun was placed and drained clear urine. The calhoun was removed at the family's insistance. Since then he has had bright red blood per uretha. The daughter, who is the medical decision-maker, has refused to allow re-insertion of the calhoun The family states that there is no hx of gross hematuria in the past. He does have a hx of significant alcohol use and a significant tobacco hx although he quit smoking over 20 year ago. On admission he refused MADHAVI. His past hx includes DM, CAD, HTN, A-fib on pradaxa. Allergies/Medications Allergies: Coded Allergies: No Known Allergies (12/09/16) Home Med List: Atorvastatin Calcium 80 MG TABLET 1 TAB PO DAILY CHOLESTEROL (Reported) Atropine Sulfate 1 % DROPS 1 DROP OS EOD LEFT EYE (Reported) Brimonidine Tartrate/Timolol (Combigan Eye Drops) 0.2 %-0.5 % DROPS 1 DROP OP BID BOTH EYES (Reported) Cephalexin 750 MG CAPSULE 1 CAP PO 4XDAILY ANTIBIOTIC (Reported) Dabigatran Etexilate Mesylate (Pradaxa 150 MG) 150 MG CAPSULE 1 CAP PO BID BLOOD THINNER (Reported) Fenofibrate Nanocrystallized (Tricor) 145 MG TABLET 1 TAB PO DAILY CHOLESTEROL /TRIGLYCERIDES (Reported) Glucosam/Chond/Hyalu/Cf Borate (Move Free Joint Health Tablet) (Unknown Strength ) TABLET (Unknown Dose) PO AD SUPPLEMENT (Reported) Insulin Glargine,Hum.rec.anlog (Lantus Solostar) (Unknown Strength) INSULN.PEN (Unknown Dose) SC DAILY DM (Reported) Mesalamine (Asacol Hd) 800 MG TABLET.DR 2 TAB PO BID GI (Reported) [place]-3/Dha/Epa/Fish Oil (Fish Oil 1,000 MG Softgel) (Unknown Strength) CAPSULE (Unknown Dose) PO DAILY SUPPLEMENT (Reported) Potassium Chloride 20 MEQ TAB.ER.PRT 1 TAB PO DAILY SUPPLEMENT (Reported) Silver Sulfadiazine (Silvadene) 1 % CREAM..G. 1 KEE TOP BID BILATERAL SHINS ( Reported) apply to affected area(s) Torsemide 100 MG TABLET 0.5 TAB PO DAILY DIURETIC (Reported) Valsartan/Hydrochlorothiazide (Valsartan-Hctz 320-25 MG Tab) 320 MG-25 MG TABLET 1 TAB PO DAILY BP (Reported) Current Medications: Current Medications Sig/Marco Start time Last Medication Dose Route Stop Time Status Admin Acetaminophen 650 MG Q6P PRN 12/10 0015 AC PO Acetaminophen/ 1 TAB Q6P PRN 12/10 0015 DC Hydrocodone Bitart PO Atorvastatin Calcium 80 MG 1700 12/10 1700 DC 12/10 PO 1734 Collagenase 1 KEE DAILY 12/11 0900 AC 12/11 TOP 0900 Dextrose/Sodium 1,000 ML Q10H 12/11 0815 AC 12/11 Chloride IV 0815 Folic Acid 1 MG DAILY 12/10 1000 AC 12/10 PO 1200 Hydromorphone HCl 1 MG Q6P PRN 12/10 0015 DC IV Insulin Aspart 0 TIDAC 12/10 0800 DC SC Insulin Detemir 10 UNITS DAILY 12/10 1000 DC 12/10 SC 1200 Insulin Human Regular 0 ONCE ONE 12/11 1445 UNVr IV 12/11 1446 Lorazepam 1 MG TID 12/11 1600 AC IV Lorazepam 1 MG BID 12/10 1000 DC 12/10 PO 2232 Lorazepam 0 Q1P PRN 12/10 0015 AC 12/11 IV 1317 Multivitamins 1 TAB DAILY 12/10 1000 AC 12/10 PO 1000 Nystatin 1 KEE TID 12/10 2200 AC 12/11 TOP 1326 Pantoprazole Sodium 40 MG DAILY 12/10 1519 AC 12/11 IV 1327 Phytonadione 10 MG ONCE ONE 12/11 1445 CAN SC 12/11 1446 Sodium Bicarbonate 75 MEQ Q6H 12/10 1445 DC 12/11 Dextrose/Sodium 1,000 ML IV 0540 Chloride Thiamine HCl 500 MG TID 12/11 1600 AC Sodium Chloride 100 ML IV 12/14 1059 Thiamine HCl 300 MG DAILY 12/11 1100 DC Sodium Chloride 100 ML IV 12/13 1012 Thiamine HCl 100 MG ONCE ONE 12/11 1045 CAN Sodium Chloride 100 ML IV 12/11 1144 Thiamine HCl 100 MG DAILY 12/10 1000 AC 12/10 PO 1200 Past History Medical History Neurological: NONE EENT: NONE Cardiovascular: AFIB, CAD, hypertension, hyperlipidemia Respiratory: NONE Gastrointestinal: NONE Hepatic: NONE Renal: NONE Musculoskeletal: BLE EXTREMITY INFECTION Psychiatric: NONE Endocrine: diabetes Blood Disorders: NONE Cancer(s): NONE CONSTRUCTION SAFETY MANAGER/Reproductive: NONE Surgical History Pertinent Surgical History: non-contributory Psychosocial History Where Do You Live? Home Smoking Status: Former Smoker ETOH Use: heavy use Illicit Drug Use: denies illicit drug use Exam & Diagnostic Data Vital Signs and I&O Vital Signs Date Time Temp Pulse Resp B/P B/P Pulse O2 O2 Flow FiO2 Mean Ox Delivery Rate 12/11 08 95 Nasal 2.0L Cannula 12/11 0600 67 24 12/11 0400 45 22 12/11 0200 69 12/11 0052 48 24 12/11 0026 96 Nasal 2.0L Cannula 12/11 0000 97.8 67 20 120/58 12/11 0000 90 Room Air Room Air 12/11 0000 97.3 34 24 108/40 90 Room Air Room Air 12/10 2200 67 12/10 2000 97.9 34 18 12/10 1600 98.2 58 20 120/58 95 Room Air Intake & Output 12/11 1600 12/11 0800 12/11 0000 12/10 1600 12/10 0800 12/10 0000 Intake Total 1090 1300 2200 800 1000 Output Total 1400 650 800 500 Balance -299 483 4278 300 1000 Intake, Blood 600 Product Intake, IV 1090 1200 2898 221 8575 Intake, Oral 0 100 400 100 0 Number 0 0 1 Bowel Movements Output, Urine 1400 650 800 500 Patient 187 lb 187 lb 192 lb Weight Weight Bed scale Reported by Patient Measurement Method Pt no coherent, moving all extremities without purpose Back: No CVA tenderness Abd: soft and non tender. Bladder not palpably distended Genitalia: Normal male. Gross blood dripping from urethra. MADHAVI: not done as patient refused this on admission when mental status was better Laboratory Tests 12/11 12/11 12/11 12/11 1442 1320 0800 0800 Chemistry Sodium (137 - 145 mmol/L) Pending 151 H Potassium (3.5 - 5.1 mmol/L) Pending 3.5 Chloride (98 - 107 mmol/L) Pending 115 H Carbon Dioxide (22 - 30 mmol/L) Pending 23 Anion Gap (5 - 16) Pending 13 BUN (9 - 20 mg/dL) Pending 152 *H Creatinine (0.7 - 1.2 mg/dL) Pending 3.2 H Estimated GFR (>60 ml/min) 19 L BUN/Creatinine Ratio (7 - 25 %) Pending 47.5 H Iron (49 - 181 ug/dL) 42 L TIBC (261 - 462 ug/dL) 341 Ferritin (17.9 - 464 ng/mL) 734.0 H Ammonia (9 - 30 umol/L) 9 Lactate Dehydrogenase (313 - 618 U/L) 714 H Vitamin B12 (239 - 931 pg/mL) 583 Folate (2.76 - 20.0 ng/mL) 5.9 Coagulation PT Pending INR Pending APTT Pending Hematology CBC w Diff Pending NO MAN DIFF REQ WBC (4.8 - 10.8 /CUMM) Pending 8.4 RBC (4.70 - 6.10 /CUMM) Pending 2.69 L Hgb (14.0 - 18.0 G/DL) Pending 8.0 L Hct (42 - 52 %) Pending 23.6 L MCV (80.0 - 94.0 FL) Pending 88.0 MCH (27.0 - 31.0 PG) Pending 29.9 RDW (11.5 - 14.5 %) Pending 18.8 H Plt Count (130 - 400 /CUMM) Pending 212 MPV (7.4 - 10.4 FL) Pending 8.9 Gran % (42.2 - 75.2 %) Pending 86.7 H Lymphocytes % (20.5 - 51.1 %) Pending 3.0 L Monocytes % (1.7 - 9.3 %) Pending 6.9 Eosinophils % (0 - 5 %) Pending 3.4 Basophils % (0.0 - 2.0 %) Pending 0 L Absolute Granulocytes (1.4 - 6.5 /CUMM) Pending 7.3 H Absolute Lymphocytes (1.2 - 3.4 /CUMM) Pending 0.3 L Absolute Monocytes (0.10 - 0.60 /CUMM) Pending 0.6 Absolute Eosinophils (0.0 - 0.7 /CUMM) Pending 0.3 Absolute Basophils (0.0 - 0.2 /CUMM) Pending 0 PUBS MCHC (33.0 - 37.0 G/DL) Pending 34.0 12/11 12/11 12/11 0744 0716 0710 Blood Gas pH (7.35 - 7.45 PH) 7.47 H pCO2 (35 - 45 TORR) 28 L pO2 (80 - 100 TORR) 125 H HCO3 (21 - 28 MEQ/L) 20 L ABG O2 Sat (Measured) (>96.0 %) 97.0 Carboxyhemoglobin (1.5 - 5.0 %) 0.3 L O2 Concentration % 2 LPM O2 Delivery Method NC Chemistry Troponin I Cancelled Hematology Haptoglobin Pending Miscellaneous Phlebotomy Draw Site RIGHT BRACHIAL 12/11 12/10 0310 1600 Chemistry Sodium (137 - 145 mmol/L) 151 H 146 H Potassium (3.5 - 5.1 mmol/L) 4.2 4.1 Chloride (98 - 107 mmol/L) 117 H 116 H Carbon Dioxide (22 - 30 mmol/L) 16 L 12 L Anion Gap (5 - 16) 17 H 18 H BUN (9 - 20 mg/dL) 168 *H > 240 *H Creatinine (0.7 - 1.2 mg/dL) 3.5 H 4.6 H Estimated GFR (>60 ml/min) 17 L 12 L BUN/Creatinine Ratio (7 - 25 %) 52.2 H Glucose (65 - 99 mg/dL) 187 H Calcium (8.4 - 10.2 mg/dL) 9.6 Phosphorus (2.5 - 4.5 mg/dL) 4.9 H 5.6 H Magnesium (1.6 - 2.3 mg/dL) 2.9 H 3.0 H Total Bilirubin (0.2 - 1.3 mg/dL) 0.8 AST (17 - 59 U/L) 46 ALT (21 - 72 U/L) 44 Troponin I (<0.11 ng/ml) 0.43 *H Albumin (3.5 - 5.0 g/dL) 2.8 L Hematology CBC w Diff MAN DIFF ORDERED NO MAN DIFF REQ WBC (4.8 - 10.8 /CUMM) 8.5 10.2 RBC (4.70 - 6.10 /CUMM) 2.97 L 2.62 L Hgb (14.0 - 18.0 G/DL) 8.9 L 8.0 L Hct (42 - 52 %) 26.5 L 23.5 L MCV (80.0 - 94.0 FL) 89.2 89.9 MCH (27.0 - 31.0 PG) 30.1 30.4 RDW (11.5 - 14.5 %) 18.7 H 17.0 H Plt Count (130 - 400 /CUMM) 215 196 MPV (7.4 - 10.4 FL) 9.3 9.2 Gran % (42.2 - 75.2 %) 83.1 H 87.9 H Lymphocytes % (20.5 - 51.1 %) 5.5 L 3.6 L Monocytes % (1.7 - 9.3 %) 6.7 5.7 Eosinophils % (0 - 5 %) 4.4 2.6 Basophils % (0.0 - 2.0 %) 0.3 0.2 Absolute Granulocytes (1.4 - 6.5 /CUMM) 7.0 H 9.0 H Segmented Neutrophils (42.2 - 75.2 %) 94 H Absolute Lymphocytes (1.2 - 3.4 /CUMM) 0.5 L 0.4 L Lymphocytes (20.5 - 51.1 %) 5 L Absolute Monocytes (0.10 - 0.60 /CUMM) 0.6 0.6 Eosinophils (0 - 5.0 %) 1 Absolute Eosinophils (0.0 - 0.7 /CUMM) 0.4 0.3 Absolute Basophils (0.0 - 0.2 /CUMM) 0 0 Nucleated RBCs (0.0 - 0.0 /100WBC) 1 H Platelet Estimate (ADEQUATE) ADEQUATE Polychromasia 1+ Ovalocytes 1+ PUBS MCHC (33.0 - 37.0 G/DL) 33.[address] of head, chest, abdomen and pelvis unremarkable, including normal-appearing kidneys Assessment/Plan Assessment/Plan Imp: 1. Gross hematuria in setting of markedly elevated INR, likely due to calhoun removal 2. Hx of significant tobacco use 3. Renal failure, likely prerenal Plan: 1. I discussed calhoun re-insertion with patient's daughter who is medical decision-maker. She abolutely refuses. At this time bladder is not distended so leave calhoun out. I explained to her that if patient developes clot retention the management of that is calhoun insertion and irrigation of clots and that we should plan for that possibility. She states that even then she would refuse to allow a calhoun catheter to be placed and we would have to "figure something else out". I explained that there are not really any other reasonable options to handle that situation but she continues to steadfast that she does not want a calhoun placed in her father. 2. Would consider attempting to reverse coagulopathy 3. Follow labs including creat and coags Consult Acknowledgment - Thank you for your consult request.
--- NOTE | 2016-12-11 15:47 | NUR ---
PT WAS CHANGED TO ICU CARE THIS AFTERNOON. DR. RILEY IN TO SEE PT AND SPEAK WITH FAMILY. SRIVASTAVA WAS INSERTED THIS AM AND 200 MLS OF CLEAR YELLOW URINE WAS INITIALLY OBTAINED. URINE CULTURE SENT. THIS AFTERNOON PT WAS INCREASINGLY MOVING AROUND IN THE BED AND THERE WAS BLEEDING NOTED AROUND THE SRIVASTAVA. MD WAS NOTIFIED, DIRECTOR OF FINANCIAL PLANNING NOTIFIED. PTS DAUGHTER EMIGDIO TOLD MD TO REMOVE THE SRIVASTAVA. DISCUSSION OF RATIONALE FOR SRIVASTAVA TOOK PLACE WITH FAMILY, ICU TEAM, AND FAMILY. SRIVASTAVA WAS REMOVED , POST REMOVAL THERE HAS BEEN A LARGE AMOUNT OF BLEEDING FROM PENIS WITH CLOTS. UROLIGY CAME TO SEE PT AND DAUGHTER CONTINUED TO REFUSE SRIVASTAVA INSERTION. DIRECTOR OF FINANCIAL PLANNING IS AWARE AND ICU RESIDENT IS AWARE.
[2016-12-11 16:00] VITALS: BP 110/60
--- NOTE | 2016-12-11 17:28 | Cons- Hematology ---
General Information and HPI Consulting Request Date of Consult: 12/11/16 Requested By: DANIEL RUIZ MD Reason for Consult: Bleeding on Pradaxa Source of Information: old records Exam Limitations: unable to give history, clinical condition History of Present Illness: Mr. Glasgow is an 80-year-old male with atrial fibrillation on dabigatran, alcohol abuse, HTN, and DM who presented to the hospital with epistaxis. He is unable to provide history this afternoon. He is reportedly a heavy drinker with 5-6 drinks a night. He has had frequent falls with last about 6 weeks ago. He has had decrease appetite and consistant alcohol usage. Per report, he also has had blood in stool and lower extremity pain. In the ED, he was noted to have RAQUEL with creatinine of 7.4, BUN of 202, potassium of 5.5, elevated troponin, hemoglobin of 8, and WBC of 12,500. CT scan of the cervical spine, chest, abdomen, and pelvis were done on 12/09 and was negative. His INR was noted to be elevated at 5.5. His epistaxis did improve in the ED. Calhoun was placed and had clear urine. There was some altered mental status with the patient and he pulled on the calhoun. Family insisted on having calhoun removed. This was removed and had some bright red blood from the uretha. He has been having a drop in his hemoglobin since admission. He continues to have bleeding. Allergies/Medications Allergies: Coded Allergies: No Known Allergies (12/09/16) Home Med List: Atorvastatin Calcium 80 MG TABLET 1 TAB PO DAILY CHOLESTEROL (Reported) Atropine Sulfate 1 % DROPS 1 DROP OS EOD LEFT EYE (Reported) Brimonidine Tartrate/Timolol (Combigan Eye Drops) 0.2 %-0.5 % DROPS 1 DROP OP BID BOTH EYES (Reported) Cephalexin 750 MG CAPSULE 1 CAP PO 4XDAILY ANTIBIOTIC (Reported) Dabigatran Etexilate Mesylate (Pradaxa 150 MG) 150 MG CAPSULE 1 CAP PO BID BLOOD THINNER (Reported) Fenofibrate Nanocrystallized (Tricor) 145 MG TABLET 1 TAB PO DAILY CHOLESTEROL /TRIGLYCERIDES (Reported) Glucosam/Chond/Hyalu/Cf Borate (Move Free Joint Health Tablet) (Unknown Strength ) TABLET (Unknown Dose) PO AD SUPPLEMENT (Reported) Insulin Glargine,Hum.rec.anlog (Lantus Solostar) (Unknown Strength) INSULN.PEN (Unknown Dose) SC DAILY DM (Reported) Mesalamine (Asacol Hd) 800 MG TABLET.DR 2 TAB PO BID GI (Reported) Mccloud-3/Dha/Epa/Fish Oil (Fish Oil 1,000 MG Softgel) (Unknown Strength) CAPSULE (Unknown Dose) PO DAILY SUPPLEMENT (Reported) Potassium Chloride 20 MEQ TAB.ER.PRT 1 TAB PO DAILY SUPPLEMENT (Reported) Silver Sulfadiazine (Silvadene) 1 % CREAM..G. 1 KEE TOP BID BILATERAL SHINS ( Reported) apply to affected area(s) Torsemide 100 MG TABLET 0.5 TAB PO DAILY DIURETIC (Reported) Valsartan/Hydrochlorothiazide (Valsartan-Hctz 320-25 MG Tab) 320 MG-25 MG TABLET 1 TAB PO DAILY BP (Reported) Current Medications: Current Medications Sig/Marco Start time Last Medication Dose Route Stop Time Status Admin Acetaminophen 650 MG Q6P PRN 12/10 0015 AC PO Acetaminophen/ 1 TAB Q6P PRN 12/10 0015 DC Hydrocodone Bitart PO Atorvastatin Calcium 80 MG 1700 12/10 1700 DC 12/10 PO 1734 Collagenase 1 KEE DAILY 12/11 0900 AC 12/11 TOP 0900 Dextrose/Sodium 1,000 ML Q10H 12/11 0815 AC 12/11 Chloride IV 0815 Folic Acid 1 MG DAILY 12/10 1000 AC 12/10 PO 1200 Hydromorphone HCl 1 MG Q6P PRN 12/10 0015 DC IV Insulin Aspart 0 TIDAC 12/10 0800 DC SC Insulin Detemir 10 UNITS DAILY 12/10 1000 DC 12/10 SC 1200 Insulin Human Regular 0 Q6 12/11 1800 AC SC Insulin Human Regular 0 ONCE ONE 12/11 1445 CAN IV 12/11 1446 Lorazepam 1 MG TID 12/11 1600 AC IV Lorazepam 1 MG BID 12/10 1000 DC 12/10 PO 2232 Lorazepam 0 Q1P PRN 12/10 0015 AC 12/11 IV 1317 Multivitamins 1 TAB DAILY 12/10 1000 AC 12/10 PO 1000 Nystatin 1 KEE TID 12/10 2200 AC 12/11 TOP 1326 Pantoprazole Sodium 40 MG DAILY 12/10 1519 AC 12/11 IV 1327 Phytonadione 5 MG ONCE ONE 12/11 1645 DC SC 12/11 1646 Phytonadione 5 MG ONE ONE 12/11 1600 CAN SC 12/11 1601 Phytonadione 10 MG ONCE ONE 12/11 1445 CAN SC 12/11 1446 Sodium Bicarbonate 75 MEQ Q6H 12/10 1445 DC 12/11 Dextrose/Sodium 1,000 ML IV 0540 Chloride Thiamine HCl 500 MG TID 12/11 1600 AC Sodium Chloride 100 ML IV 12/14 1059 Thiamine HCl 300 MG DAILY 12/11 1100 DC Sodium Chloride 100 ML IV 12/13 1012 Thiamine HCl 100 MG ONCE ONE 12/11 1045 CAN Sodium Chloride 100 ML IV 12/11 1144 Thiamine HCl 100 MG DAILY 12/10 1000 AC 12/10 PO 1200 Past History Travel History Traveled to [place] past 21 day No Medical History Neurological: NONE EENT: NONE Cardiovascular: AFIB, CAD, hypertension, hyperlipidemia Respiratory: NONE Gastrointestinal: NONE Hepatic: NONE Renal: NONE Musculoskeletal: BLE EXTREMITY INFECTION Psychiatric: NONE Endocrine: diabetes Blood Disorders: NONE Cancer(s): NONE FINANCIAL REPORTING ADVISOR/Reproductive: NONE Surgical History Surgical History: non-contributory Psychosocial History Where Do You Live? Home Smoking Status: Former Smoker ETOH Use: heavy use Illicit Drug Use: denies illicit drug use ECHO Results (as available) EF% 65 Exam & Diagnostic Data Vital Signs and I&O Vital Signs Date Time Temp Pulse Resp B/P B/P Pulse O2 O2 Flow FiO2 Mean Ox Delivery Rate 12/11 1600 94 Nasal 2.0L Cannula 12/11 1600 96.5 64 20 110/60 95 Nasal 2.0L Cannula 12/11 0800 95 Nasal 2.0L Cannula 12/11 0600 67 24 12/11 0400 45 22 12/11 0200 69 26 12/11 0052 48 24 12/11 0026 96 Nasal 2.0L Cannula 12/11 0000 97.8 67 20 120/58 12/11 0000 90 Room Air Room Air 12/11 0000 97.3 34 24 108/40 90 Room Air Room Air 12/10 2200 67 12/10 2000 97.9 34 18 Intake & Output 12/11 1600 12/11 0800 12/11 0000 Intake Total 800 1090 1300 Output Total 500 1400 650 Balance 300 -310 650 Intake, IV 800 1090 1200 Intake, Oral 0 100 Number 0 0 Bowel Movements Output, Urine 500 1400 650 Patient 84.822 kg Weight Physical Exam General Appearance: lethargic, non-verbal Head: atraumatic, normal appearance Eyes: Bilateral: other. Ears, Nose, Throat: dry mucus membranes, dry blood in posterior OP, dry blood in nares Neck: supple Respiratory: chest non-tender, rhonchi Cardiovascular: irregularly irregular Gastrointestinal: normal bowel sounds, soft, non-tender Extremities: pedal edema, bilateral lower extremity ulceration and ecchymoses Neurologic/Psych: non-verbal Skin: ecchymosis Lymphatic: no anterior cervical birdie Last 48 Hours of Lab Results: Laboratory Tests 12/11 12/11 1740 1442 Coagulation PT (9.4 - 12.5 SEC) Pending 31.7 H INR (0.90 - 1.17) Pending 3.05 H APTT (25 - 37 SEC) Pending 56 H Fibrinogen Activity Pending Fibrin Degrad Products Pending Hematology CBC w Diff NO MAN DIFF REQ WBC (4.8 - 10.8 /CUMM) 9.7 RBC (4.70 - 6.10 /CUMM) 2.53 L Hgb (14.0 - 18.0 G/DL) 7.7 L Hct (42 - 52 %) 22.4 L MCV (80.0 - 94.0 FL) 88.7 MCH (27.0 - 31.0 PG) 30.2 RDW (11.5 - 14.5 %) 18.7 H Plt Count (130 - 400 /CUMM) 214 MPV (7.4 - 10.4 FL) 8.7 Gran % (42.2 - 75.2 %) 85.3 H Lymphocytes % (20.5 - 51.1 %) 4.1 L Monocytes % (1.7 - 9.3 %) 7.3 Eosinophils % (0 - 5 %) 3.1 Basophils % (0.0 - 2.0 %) 0.2 Absolute Granulocytes (1.4 - 6.5 /CUMM) 8.3 H Absolute Lymphocytes (1.2 - 3.4 /CUMM) 0.4 L Absolute Monocytes (0.10 - 0.60 /CUMM) 0.7 H Absolute Eosinophils (0.0 - 0.7 /CUMM) 0.3 Absolute Basophils (0.0 - 0.2 /CUMM) 0 PUBS MCHC (33.0 - 37.0 G/DL) 34.1 12/11 12/11 12/11 1320 0800 0800 Chemistry Sodium (137 - 145 mmol/L) 154 H 151 H Potassium (3.5 - 5.1 mmol/L) 3.4 L 3.5 Chloride (98 - 107 mmol/L) 119 H 115 H Carbon Dioxide (22 - 30 mmol/L) 21 L 23 Anion Gap (5 - 16) 11 13 BUN (9 - 20 mg/dL) 146 *H 152 *H Creatinine (0.7 - 1.2 mg/dL) 2.7 H 3.2 H Estimated GFR (>60 ml/min) 23 L 19 L BUN/Creatinine Ratio (7 - 25 %) 54.1 H 47.5 H Iron (49 - 181 ug/dL) 42 L TIBC (261 - 462 ug/dL) 341 Ferritin (17.9 - 464 ng/mL) 734.0 H Ammonia (9 - 30 umol/L) 9 Lactate Dehydrogenase (313 - 618 U/L) 714 H Vitamin B12 (239 - 931 pg/mL) 583 Folate (2.76 - 20.0 ng/mL) 5.9 Hematology CBC w Diff NO MAN DIFF REQ WBC (4.8 - 10.8 /CUMM) 8.4 RBC (4.70 - 6.10 /CUMM) 2.69 L Hgb (14.0 - 18.0 G/DL) 8.0 L Hct (42 - 52 %) 23.6 L MCV (80.0 - 94.0 FL) 88.0 MCH (27.0 - 31.0 PG) 29.9 RDW (11.5 - 14.5 %) 18.8 H Plt Count (130 - 400 /CUMM) 212 MPV (7.4 - 10.4 FL) 8.9 Gran % (42.2 - 75.2 %) 86.7 H Lymphocytes % (20.5 - 51.1 %) 3.0 L Monocytes % (1.7 - 9.3 %) 6.9 Eosinophils % (0 - 5 %) 3.4 Basophils % (0.0 - 2.0 %) 0 L Absolute Granulocytes (1.4 - 6.5 /CUMM) 7.3 H Absolute Lymphocytes (1.2 - 3.4 /CUMM) 0.3 L Absolute Monocytes (0.10 - 0.60 /CUMM) 0.6 Absolute Eosinophils (0.0 - 0.7 /CUMM) 0.3 Absolute Basophils (0.0 - 0.2 /CUMM) 0 PUBS MCHC (33.0 - 37.0 G/DL) 34.0 12/11 12/11 12/11 0744 0716 0710 Blood Gas pH (7.35 - 7.45 PH) 7.47 H pCO2 (35 - 45 TORR) 28 L pO2 (80 - 100 TORR) 125 H HCO3 (21 - 28 MEQ/L) 20 L ABG O2 Sat (Measured) (>96.0 %) 97.0 Carboxyhemoglobin (1.5 - 5.0 %) 0.3 L O2 Concentration % 2 LPM O2 Delivery Method NC Chemistry Troponin I Cancelled Hematology Haptoglobin Pending Miscellaneous Phlebotomy Draw Site RIGHT BRACHIAL 12/11 12/10 0310 1600 Chemistry Sodium (137 - 145 mmol/L) 151 H 146 H Potassium (3.5 - 5.1 mmol/L) 4.2 4.1 Chloride (98 - 107 mmol/L) 117 H 116 H Carbon Dioxide (22 - 30 mmol/L) 16 L 12 L Anion Gap (5 - 16) 17 H 18 H BUN (9 - 20 mg/dL) 168 *H > 240 *H Creatinine (0.7 - 1.2 mg/dL) 3.5 H 4.6 H Estimated GFR (>60 ml/min) 17 L 12 L BUN/Creatinine Ratio (7 - 25 %) 52.2 H Glucose (65 - 99 mg/dL) 187 H Calcium (8.4 - 10.2 mg/dL) 9.6 Phosphorus (2.5 - 4.5 mg/dL) 4.9 H 5.6 H Magnesium (1.6 - 2.3 mg/dL) 2.9 H 3.0 H Total Bilirubin (0.2 - 1.3 mg/dL) 0.8 AST (17 - 59 U/L) 46 ALT (21 - 72 U/L) 44 Troponin I (<0.11 ng/ml) 0.43 *H Albumin (3.5 - 5.0 g/dL) 2.8 L Hematology CBC w Diff MAN DIFF ORDERED NO MAN DIFF REQ WBC (4.8 - 10.8 /CUMM) 8.5 10.2 RBC (4.70 - 6.10 /CUMM) 2.97 L 2.62 L Hgb (14.0 - 18.0 G/DL) 8.9 L 8.0 L Hct (42 - 52 %) 26.5 L 23.5 L MCV (80.0 - 94.0 FL) 89.2 89.9 MCH (27.0 - 31.0 PG) 30.1 30.4 RDW (11.5 - 14.5 %) 18.7 H 17.0 H Plt Count (130 - 400 /CUMM) 215 196 MPV (7.4 - 10.4 FL) 9.3 9.2 Gran % (42.2 - 75.2 %) 83.1 H 87.9 H Lymphocytes % (20.5 - 51.1 %) 5.5 L 3.6 L Monocytes % (1.7 - 9.3 %) 6.7 5.7 Eosinophils % (0 - 5 %) 4.4 2.6 Basophils % (0.0 - 2.0 %) 0.3 0.2 Absolute Granulocytes (1.4 - 6.5 /CUMM) 7.0 H 9.0 H Segmented Neutrophils (42.2 - 75.2 %) 94 H Absolute Lymphocytes (1.2 - 3.4 /CUMM) 0.5 L 0.4 L Lymphocytes (20.5 - 51.1 %) 5 L Absolute Monocytes (0.10 - 0.60 /CUMM) 0.6 0.6 Eosinophils (0 - 5.0 %) 1 Absolute Eosinophils (0.0 - 0.7 /CUMM) 0.4 0.3 Absolute Basophils (0.0 - 0.2 /CUMM) 0 0 Nucleated RBCs (0.0 - 0.0 /100WBC) 1 H Platelet Estimate (ADEQUATE) ADEQUATE Polychromasia 1+ Ovalocytes 1+ PUBS MCHC (33.0 - 37.0 G/DL) 33.7 33.8 12/10 12/10 0828 0547 Chemistry Sodium (137 - 145 mmol/L) 141 Potassium (3.5 - 5.1 mmol/L) 4.5 Chloride (98 - 107 mmol/L) 112 H Carbon Dioxide (22 - 30 mmol/L) 12 L Anion Gap (5 - 16) 18 H BUN (9 - 20 mg/dL) 191 *H Creatinine (0.7 - 1.2 mg/dL) 5.8 *H Estimated GFR (>60 ml/min) 9 L BUN/Creatinine Ratio (7 - 25 %) 32.9 H Phosphorus (2.5 - 4.5 mg/dL) 5.8 H Creatine Kinase (55 - 170 U/L) 463 H Troponin I (<0.11 ng/ml) 0.24 *H Coagulation PT (9.4 - 12.5 SEC) 57.3 *H INR (0.90 - 1.17) 5.55 *H Hematology CBC w Diff NO MAN DIFF REQ NO MAN DIFF REQ WBC (4.8 - 10.8 /CUMM) 8.8 9.0 RBC (4.70 - 6.10 /CUMM) 2.02 L 2.02 L Hgb (14.0 - 18.0 G/DL) 6.2 *L 6.3 *L Hct (42 - 52 %) 18.8 *L 18.7 *L MCV (80.0 - 94.0 FL) 93.1 93.0 MCH (27.0 - 31.0 PG) 30.6 31.1 H RDW (11.5 - 14.5 %) 17.0 H 17.4 H Plt Count (130 - 400 /CUMM) 205 211 MPV (7.4 - 10.4 FL) 9.3 8.8 Gran % (42.2 - 75.2 %) 85.6 H 86.1 H Lymphocytes % (20.5 - 51.1 %) 5.2 L 5.4 L Monocytes % (1.7 - 9.3 %) 6.5 5.9 Eosinophils % (0 - 5 %) 2.3 2.3 Basophils % (0.0 - 2.0 %) 0.4 0.3 Absolute Granulocytes (1.4 - 6.5 /CUMM) 7.5 H 7.7 H Absolute Lymphocytes (1.2 - 3.4 /CUMM) 0.5 L 0.5 L Absolute Monocytes (0.10 - 0.60 /CUMM) 0.6 0.5 Absolute Eosinophils (0.0 - 0.7 /CUMM) 0.2 0.2 Absolute Basophils (0.0 - 0.2 /CUMM) 0 0 PUBS MCHC (33.0 - 37.0 G/DL) 32.9 L 33.5 12/10 12/09 12/09 0100 2151944 Chemistry Lactic Acid (0.7 - 2.1 mmol/L) 1.2 Troponin I (<0.11 ng/ml) 0.24 *H Urines Urinalysis LIGHT H Urine Color (YEL,AMB,STR) YEL Urine Clarity (CLEAR) CLEAR Urine pH (5.0 - 8.0) 6.0 Ur Specific Marshall (1.001 - 1.035) 1.015 Urine Protein (NEG,<30 MG/DL) NEG Urine Ketones (NEG) NEG Urine Nitrite (NEG) NEG Urine Bilirubin (NEG) NEG Urine Urobilinogen (0.1 - 1.0 EU/dl) 0.2 Ur Leukocyte Esterase (NEG) NEG Ur Microscopic SEDIMENT EXAMINED Urine RBC (0 - 5 /HPF) 1-3 Ur Epithelial Cells (NONE,FEW) RARE Urine Mucus (FEW,NONE) FEW Urine Hemoglobin (NEG) TRACE-INTACT H Urine Glucose (N MG/DL) NEG Imaging/Other Studies: Head CT 12/11/2016: No acute intracranial pathology. Limited assessment of the inferior half the posterior fossa due to motion artifact. 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 Echocardiogram 12/10/2016: Normal appearing LV chamber size with mild concentric LVH. The estimated LVEF is 60% without focal wall motion abnormalities. Trileaflet aortic valve with mild location. There is adequate leaflet opening. There is mild tricuspid regurgitation. The estimated woman her systolic pressure is 50-60 mmHg. Chest/abdomen/pelvis CT 12/09/2016: 1. No acute traumatic pathology in the chest, abdomen or pelvis. 2. Atherosclerotic disease of coronary arteries and aorta without aortic aneurysm. No retroperitoneal hematoma. 3. Diverticulosis of the descending and sigmoid colon without diverticulitis. Maxillofacial/Cervical/Head CT 12/09/2016: No acute fracture or subluxation of the cervical spine. Mild to moderate spondylosis of the cervical spine. Assessment/Plan Assessment: Mr. Glasgow is an 80-year-old male with atrial fibrillation on dabigatran, HTN, HLD , and alcohol abuse who presents with epistaxis. He was noted to have anemia, elevated INR, RAQUEL, AMS, and hematuria from trauma from calhoun. He continues to have some blood loss from calhoun trauma. He no longer has any epistaxis. Due to persistent bleeding, hematology is consulted to evaluate the need to reverse dabigatran. His bleeding is likely secondary to multiple factors including alcohol usage, RAQUEL with severe uremia, and anticoagulation with dabigatran. His last dabigatran is prior to admission but is unclear on the time. He is at least 36- 48 hours from last dosing. Half life for dabigatran is about 28 hours for severe renal dysfunction. In addition to dabigatran, he has severe uremia which will causes platelet dysfunction which increases risk of bleeidng. He likely has underlying liver disease given severe alcohol usage. Given his acute symptoms, DIC is also a potential etiology. This should be checked. His INR remains elevated which may be related to dabigatran. With his alcoholo history, vitamin K deficiency is likely. He should be given a trial of vitamin K to improve his INR. He will unlikely to benefit from dabigatran reversal with idarucizumab (Praxbind). He should have his underlying RAQUEL addressed. Recommendations: 1. Monitor DIC panel, cyro if fibrinogen<100 2. Vitamin K 5 mg SC 3. Hold Pradaxa 4. Urology evaluation for hematuria, consideration for intravesicular Amicar if needed 5. Nephrology evaluation for underlying uremia 6. FFP/Cyro prn bleeding 7. Can consider intravesicular tranexamic acid or IV tranexamic acid if acute bleeding 8. Consider idarucizumab if significant bleeding and available (dabigatran reversal agent) Problem List: 1. Epistaxis 2. Anemia 3. Acute renal failure Other Findings/Comments: Please call [phone] with any questions. Consult Acknowledgment - Thank you for your consult request.
--- NOTE | 2016-12-11 17:41 | Cons- Gastroenterology ---
See Addendum General Information and HPI Consulting Request Date of Consult: 12/11/16 Requested By: EVENS RILEY MD Reason for Consult: I was called this afternoon, HD #3, to assess questionable GI bleeding in patient post-Pradaxa, post epistaxis, gross hematuria, ARF, afib, + troponin. Pradaxa was last taken 12/08/2016. Multiple consultants' notes appreciated. Source of Information: family (pt's dtr, Ashlyn & son,Mark), old records Exam Limitations: unable to give history, not alert/orientated, clinical condition, confusion, poor historian History of Present Illness: 80 y/o male, afib, ASHD, HTN, HLD, DM, PVD post L CEA, multiple avulsions to the LE B/L following a fall with the walker, EtOH abuse, & peripheral edema (on outpatient diuretics/ARB & Keflex). The patient presented to the [facility] ER 12/09/2016 at 4:00 p.m., with weakness, epistaxis for 5 days, B/L lower extremity cellulitis, diffuse rash, coagulopathy with INR 5.5, + lactate, ARF with BUN/Cr 202/7.4 (baseline Cr 1.4), K 5.5, anemia with Hgb 8, WBC 12.5, mildly elevated troponin (not felt to be ACS), metabolic acidosis & hypotension. 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 He was initially admitted to telemetry, then transferred to the ICU 12/11/2016, in view of renal failure & worsening mentation. He has not yet been seen by ENT. The epistaxis reportedly resolved. He has been seen by ICU, hematology, renal, wound care, neurology, & cardiology. Patient had a Mckinney catheter placed 12/11/2016, draining clear urine. The Mckinney was removed at the family's insistance, followed by bright red blood per urethra. There is no official POA or conservator, but the patient's daughter, Ashlyn Trivedi, who was at the bedside for part of my consult (as was her ), as was the patient's son, Mark, identifies herself as the major medical decision maker. Having stated that, she stated there was no definite living will or POA, and at times seemed to wish to defer to the patient's girlfriend for guidance, who is currently not at the hospital. In addition to the epistaxis, the patient apparently bit his lips and tongue, which contributed to the black OB-positive stool that was noted earlier today. He refused a digital rectal exam on admission. The patient is an alcoholic, reportedly 5-6 drinks per night. 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 He is also an ex- smoker, stopping over 20 years ago. The family denied him using any illicit drugs. The patient is unable to give any history whatsoever. He reportedly had a colonoscopy and possibly an upper endoscopy in [place], [place], unsure as to by whom or when. He was on outpatient Mesalamine 1600 mg po BID for unknown reasons. The family denied any knowledge of colitis. Aside from the Pradaxa, he was not on any aspirin or NSAIDs. The patient reportedly last took his Pradaxa 12/08/2016, 1 day [employer]. The patient's family denied the patient ever having had DTs, but I am not certain that he has stopped alcohol for an extended period of time in the past. His admission labs were not consistent with cirrhosis, with normal platelet count and normal albumin:globulin ratio. Again, his coagulopathy was felt to be from Pradaxa. He had a normal ammonia level. The patient's RAQUEL was felt to be from overdiuresis/pre-renal. The patient was seen by hematology 12/11/2016, and his bleeding was felt to be multifactorial, in part from Pradaxa (*prolonged t1/2 in severe renal failure is approximately 28 hours), uremia, and EtOH. DIC was possible as well, although his platelet count was normal. He INR certainly could be related to the Pradaxa. Hematology felt that reversing Pradaxa at this point with Praxbind was unlikely to be of benefit. His mental status remains extremely poor. There has been no witnessed hematemesis, BRBPR or hemoptysis. *No history is available from the patient. 12/09/2016: EKG- afib @ 55, normal axis, IRBBB, NSST 12/09/2106: CT CERV SPINE WO IV CONTRAST; CT HEAD WO IV CONTRAST; CT MAXILLOFACIAL W/O CONTRAST- No acute intracranial process or discrete facial bone fracture. Moderate chronic small vessel ischemic changes. 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 No acute fracture or subluxation of the cervical spine. Mild to moderate spondylosis of the cervical spine. 12/09/2016: XRY-PORTABLE CHEST XRAY- No acute pulmonary disease. Enlarged cardiac silhouette which may reflect cardiomegaly and/or pericardial effusion. 12/09/2016: CT ABD & PELVIS W/O IV CONTRAST; CT CHEST WO IV CONTRAST- 1. No acute traumatic pathology in the chest, abdomen or pelvis. Minimal COPD. 3 mm granulima right lung apex. Old healed fracture right lateral seventh rib. DJD. 2. Atherosclerotic disease of coronary arteries and aorta without aortic aneurysm. No retroperitoneal hematoma. 3. Diverticulosis of the descending and sigmoid colon without diverticulitis. 4. 7 mm left renal cyst. No hydronephrosis. 12/11/2016: XRY-PORTABLE CHEST XRAY- Unremarkable examination. 12/11/2016: CT HEAD WITHOUT CONTRAST- No acute intracranial pathology. Limited assessment of the inferior half the posterior fossa due to motion artifact. 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 12/11/2016: EKG- afib @ 67, normal axis, RBBB, no acute ischemic change. Allergies/Medications Allergies: Coded Allergies: No Known Allergies (12/09/16) Home Med List: Atorvastatin Calcium 80 MG TABLET 1 TAB PO DAILY CHOLESTEROL (Reported) Atropine Sulfate 1 % DROPS 1 DROP OS EOD LEFT EYE (Reported) Brimonidine Tartrate/Timolol (Combigan Eye Drops) 0.2 %-0.5 % DROPS 1 DROP OP BID BOTH EYES (Reported) Cephalexin 750 MG CAPSULE 1 CAP PO 4XDAILY ANTIBIOTIC (Reported) Dabigatran Etexilate Mesylate (Pradaxa 150 MG) 150 MG CAPSULE 1 CAP PO BID BLOOD THINNER (Reported) Fenofibrate Nanocrystallized (Tricor) 145 MG TABLET 1 TAB PO DAILY CHOLESTEROL /TRIGLYCERIDES (Reported) Glucosam/Chond/Hyalu/Cf Borate (Move Free Joint Health Tablet) (Unknown Strength ) TABLET (Unknown Dose) PO AD SUPPLEMENT (Reported) Insulin Glargine,Hum.rec.anlog (Lantus Solostar) (Unknown Strength) INSULN.PEN (Unknown Dose) SC DAILY DM (Reported) Mesalamine (Asacol Hd) 800 MG TABLET.DR 2 TAB PO BID GI (Reported) [place]-3/Dha/Epa/Fish Oil (Fish Oil 1,000 MG Softgel) (Unknown Strength) CAPSULE (Unknown Dose) PO DAILY SUPPLEMENT (Reported) Potassium Chloride 20 MEQ TAB.ER.PRT 1 TAB PO DAILY SUPPLEMENT (Reported) Silver Sulfadiazine (Silvadene) 1 % CREAM..G. 1 KEE TOP BID BILATERAL SHINS ( Reported) apply to affected area(s) Torsemide 100 MG TABLET 0.5 TAB PO DAILY DIURETIC (Reported) Valsartan/Hydrochlorothiazide (Valsartan-Hctz 320-25 MG Tab) 320 MG-25 MG TABLET 1 TAB PO DAILY BP (Reported) Past History Travel History Traveled to [place] past 21 day No Medical History Blood Transfusion Hx: Yes Neurological: NONE EENT: epistaxis Cardiovascular: AFIB, CAD, hypertension, hyperlipidemia, PVD (L CEA) Respiratory: COPD Gastrointestinal: diverticulosis coli Hepatic: alcohol abuse Renal: ARF superimposed on baseline Cr 1.4; L renal cyst w/o hydronephrosis Musculoskeletal: BLE EXTREMITY INFECTION Psychiatric: NONE Endocrine: diabetes, vitamin D deficiency Blood Disorders: NONE Cancer(s): NONE 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 Home Who Do You Live With? girlfriend Services at Home: None Primary Language: Uzbek Smoking Status: Former Smoker ETOH Use: heavy use Illicit Drug Use: denies illicit drug use Living Will? unknown (per dtr, Ashlyn) Power of System Specialist/HCP? no (per dtr, Ashlyn "she is closest) Other Social History: Lives with girlfriend. 5-6 drinks EtOH daily. Ex-smoker. No drugs. 1 son, Mark , & 1 dtr, Ashlyn- [employer] (uncertain if the son has cognitive or psychologic issues) . Retired [employer] & was cindy in the army? Functional Ability ADLs Unknown: dressing, eating, toileting, bathing. Ambulation: unknown IADLs Unknown: shopping, housework, finances, food prep, telephone, transportation, medication admin. Employment History Employment: Retired Profession/Employer: [employer] ECHO Results (as available) Date of last Echo 12/10/16 EF% 60 Review of Systems Review of Systems: Full 14 point review of systems otherwise unobtainable from the patient, due to his condition. Review of Systems All Other Systems: Reviewed and Negative (unobtainable) Exam & Diagnostic Data Vital Signs and I&O Vital Signs Date Time Temp Pulse Resp B/P B/P Pulse O2 O2 Flow FiO2 Mean Ox Delivery Rate 12/11 1600 94 Nasal 2.0L Cannula 12/11 1600 96.5 64 20 110/60 95 Nasal 2.0L Cannula 12/11 0800 95 Nasal 2.0L Cannula 12/11 0600 67 24 12/11 0400 45 22 12/11 0200 69 26 12/11 0052 48 24 12/11 0026 96 Nasal 2.0L Cannula 12/11 0000 97.8 67 20 120/58 12/11 0000 90 Room Air Room Air 12/11 0000 97.3 34 24 108/40 90 Room Air Room Air 12/10 2200 67 12/10 2000 97.9 34 18 Intake & Output 12/11 1600 12/11 0400 12/10 1600 12/10 0400 12/09 1600 12/09 0400 Intake Total 1890 1300 3000 1000 Output Total 2632 594 5466 Balance -10 650 1700 1000 Intake, Blood 600 Product Intake, IV 1890 1200 1900 1000 Intake, Oral 0 100 500 0 Number 0 0 1 Bowel Movements Output, Urine 8984 031 6852 Patient 187 lb 187 lb 192 lb Weight Weight Bed scale Reported by Patient Measurement Method Physical Exam: Well-developed, slightly malnourished male, in mild distress. Questionable agonal breathing. Sclera anicteric. Conjunctiva slightly pale. Dried blood in nares. Oropharynx: dried blood, with bite marie on lips and tongue. Dry mucus membranes. There is no adenopathy, thyromegaly, or JVD. Post L CEA. ? Faint carotid bruit on left, 1+ on right. No peripheral stigmata of inflammatory bowel disease or chronic liver disease on exam. No spiders on the anterior chest wall. No gynecomastia. No CVA tenderness. Lungs: clear to A&P, with slight decreased BS at the bases B/L. Heart exam: irregularly irregular rate rhythm, S1 and S2, without any significant murmur. Abdominal exam: normal bowel sounds, soft belly , nontender, without guarding or rebound. No mass. No organomegaly. No fluid shift. No pulsatile mass. No epigastric bruit. Digital rectal exam: refused by patient on admission. 12/11/2016: Black stool, OB+, per RN. Extremities: without cyanosis or clubbing. trace peripheral edema B/L, with B/L LE ulcerations/echymoses & gluteal ulcer (dressed per wound care). No palpable cords. Distal pulses 1+ bilaterally. DTRs 1+ bilaterally. Disoriented x 3. Non - verbal. Responds to noxious stimuli. Results Pertinent Lab Results: Laboratory Tests 12/11 12/11 1740 1442 Coagulation PT (9.4 - 12.5 SEC) 32.7 H 31.7 H INR (0.90 - 1.17) 3.15 H 3.05 H APTT (25 - 37 SEC) 62 H 56 H Fibrinogen Activity (200 - 393 MG/DL) 296 Fibrin Degrad Products (< 10 ug/ml) Pending Hematology CBC w Diff NO MAN DIFF REQ WBC (4.8 - 10.8 /CUMM) 9.7 RBC (4.70 - 6.10 /CUMM) 2.53 L Hgb (14.0 - 18.0 G/DL) 7.7 L Hct (42 - 52 %) 22.4 L MCV (80.0 - 94.0 FL) 88.7 MCH (27.0 - 31.0 PG) 30.2 RDW (11.5 - 14.5 %) 18.7 H Plt Count (130 - 400 /CUMM) 214 MPV (7.4 - 10.4 FL) 8.7 Gran % (42.2 - 75.2 %) 85.3 H Lymphocytes % (20.5 - 51.1 %) 4.1 L Monocytes % (1.7 - 9.3 %) 7.3 Eosinophils % (0 - 5 %) 3.1 Basophils % (0.0 - 2.0 %) 0.2 Absolute Granulocytes (1.4 - 6.5 /CUMM) 8.3 H Absolute Lymphocytes (1.2 - 3.4 /CUMM) 0.4 L Absolute Monocytes (0.10 - 0.60 /CUMM) 0.7 H Absolute Eosinophils (0.0 - 0.7 /CUMM) 0.3 Absolute Basophils (0.0 - 0.2 /CUMM) 0 PUBS MCHC (33.0 - 37.0 G/DL) 34.1 12/11 12/11 12/11 1320 0800 0800 Chemistry Sodium (137 - 145 mmol/L) 154 H 151 H Potassium (3.5 - 5.1 mmol/L) 3.4 L 3.5 Chloride (98 - 107 mmol/L) 119 H 115 H Carbon Dioxide (22 - 30 mmol/L) 21 L 23 Anion Gap (5 - 16) 11 13 BUN (9 - 20 mg/dL) 146 *H 152 *H Creatinine (0.7 - 1.2 mg/dL) 2.7 H 3.2 H Estimated GFR (>60 ml/min) 23 L 19 L BUN/Creatinine Ratio (7 - 25 %) 54.1 H 47.5 H Iron (49 - 181 ug/dL) 42 L TIBC (261 - 462 ug/dL) 341 Ferritin (17.9 - 464 ng/mL) 734.0 H Ammonia (9 - 30 umol/L) 9 Lactate Dehydrogenase (313 - 618 U/L) 714 H Vitamin B12 (239 - 931 pg/mL) 583 Folate (2.76 - 20.0 ng/mL) 5.9 Hematology CBC w Diff NO MAN DIFF REQ WBC (4.8 - 10.8 /CUMM) 8.4 RBC (4.70 - 6.10 /CUMM) 2.69 L Hgb (14.0 - 18.0 G/DL) 8.0 L Hct (42 - 52 %) 23.6 L MCV (80.0 - 94.0 FL) 88.0 MCH (27.0 - 31.0 PG) 29.9 RDW (11.5 - 14.5 %) 18.8 H Plt Count (130 - 400 /CUMM) 212 MPV (7.4 - 10.4 FL) 8.9 Gran % (42.2 - 75.2 %) 86.7 H Lymphocytes % (20.5 - 51.1 %) 3.0 L Monocytes % (1.7 - 9.3 %) 6.9 Eosinophils % (0 - 5 %) 3.4 Basophils % (0.0 - 2.0 %) 0 L Absolute Granulocytes (1.4 - 6.5 /CUMM) 7.3 H Absolute Lymphocytes (1.2 - 3.4 /CUMM) 0.3 L Absolute Monocytes (0.10 - 0.60 /CUMM) 0.6 Absolute Eosinophils (0.0 - 0.7 /CUMM) 0.3 Absolute Basophils (0.0 - 0.2 /CUMM) 0 PUBS MCHC (33.0 - 37.0 G/DL) 34.0 12/11 12/11 12/11 0744 0716 0710 Blood Gas pH (7.35 - 7.45 PH) 7.47 H pCO2 (35 - 45 TORR) 28 L pO2 (80 - 100 TORR) 125 H HCO3 (21 - 28 MEQ/L) 20 L ABG O2 Sat (Measured) (>96.0 %) 97.0 Carboxyhemoglobin (1.5 - 5.0 %) 0.3 L O2 Concentration % 2 LPM O2 Delivery Method NC Chemistry Troponin I Cancelled Hematology Haptoglobin Pending Miscellaneous Phlebotomy Draw Site RIGHT BRACHIAL 12/11 12/10 0310 1600 Chemistry Sodium (137 - 145 mmol/L) 151 H 146 H Potassium (3.5 - 5.1 mmol/L) 4.2 4.1 Chloride (98 - 107 mmol/L) 117 H 116 H Carbon Dioxide (22 - 30 mmol/L) 16 L 12 L Anion Gap (5 - 16) 17 H 18 H BUN (9 - 20 mg/dL) 168 *H > 240 *H Creatinine (0.7 - 1.2 mg/dL) 3.5 H 4.6 H Estimated GFR (>60 ml/min) 17 L 12 L BUN/Creatinine Ratio (7 - 25 %) 52.2 H Glucose (65 - 99 mg/dL) 187 H Calcium (8.4 - 10.2 mg/dL) 9.6 Phosphorus (2.5 - 4.5 mg/dL) 4.9 H 5.6 H Magnesium (1.6 - 2.3 mg/dL) 2.9 H 3.0 H Total Bilirubin (0.2 - 1.3 mg/dL) 0.8 AST (17 - 59 U/L) 46 ALT (21 - 72 U/L) 44 Troponin I (<0.11 ng/ml) 0.43 *H Albumin (3.5 - 5.0 g/dL) 2.8 L Hematology CBC w Diff MAN DIFF ORDERED NO MAN DIFF REQ WBC (4.8 - 10.8 /CUMM) 8.5 10.2 RBC (4.70 - 6.10 /CUMM) 2.97 L 2.62 L Hgb (14.0 - 18.0 G/DL) 8.9 L 8.0 L Hct (42 - 52 %) 26.5 L 23.5 L MCV (80.0 - 94.0 FL) 89.2 89.9 MCH (27.0 - 31.0 PG) 30.1 30.4 RDW (11.5 - 14.5 %) 18.7 H 17.0 H Plt Count (130 - 400 /CUMM) 215 196 MPV (7.4 - 10.4 FL) 9.3 9.2 Gran % (42.2 - 75.2 %) 83.1 H 87.9 H Lymphocytes % (20.5 - 51.1 %) 5.5 L 3.6 L Monocytes % (1.7 - 9.3 %) 6.7 5.7 Eosinophils % (0 - 5 %) 4.4 2.6 Basophils % (0.0 - 2.0 %) 0.3 0.2 Absolute Granulocytes (1.4 - 6.5 /CUMM) 7.0 H 9.0 H Segmented Neutrophils (42.2 - 75.2 %) 94 H Absolute Lymphocytes (1.2 - 3.4 /CUMM) 0.5 L 0.4 L Lymphocytes (20.5 - 51.1 %) 5 L Absolute Monocytes (0.10 - 0.60 /CUMM) 0.6 0.6 Eosinophils (0 - 5.0 %) 1 Absolute Eosinophils (0.0 - 0.7 /CUMM) 0.4 0.3 Absolute Basophils (0.0 - 0.2 /CUMM) 0 0 Nucleated RBCs (0.0 - 0.0 /100WBC) 1 H Platelet Estimate (ADEQUATE) ADEQUATE Polychromasia 1+ Ovalocytes 1+ PUBS MCHC (33.0 - 37.0 G/DL) 33.7 33.8 12/10 12/10 0828 0547 Chemistry Sodium (137 - 145 mmol/L) 141 Potassium (3.5 - 5.1 mmol/L) 4.5 Chloride (98 - 107 mmol/L) 112 H Carbon Dioxide (22 - 30 mmol/L) 12 L Anion Gap (5 - 16) 18 H BUN (9 - 20 mg/dL) 191 *H Creatinine (0.7 - 1.2 mg/dL) 5.8 *H Estimated GFR (>60 ml/min) 9 L BUN/Creatinine Ratio (7 - 25 %) 32.9 H Phosphorus (2.5 - 4.5 mg/dL) 5.8 H Creatine Kinase (55 - 170 U/L) 463 H Troponin I (<0.11 ng/ml) 0.24 *H Coagulation PT (9.4 - 12.5 SEC) 57.3 *H INR (0.90 - 1.17) 5.55 *H Hematology CBC w Diff NO MAN DIFF REQ NO MAN DIFF REQ WBC (4.8 - 10.8 /CUMM) 8.8 9.0 RBC (4.70 - 6.10 /CUMM) 2.02 L 2.02 L Hgb (14.0 - 18.0 G/DL) 6.2 *L 6.3 *L Hct (42 - 52 %) 18.8 *L 18.7 *L MCV (80.0 - 94.0 FL) 93.1 93.0 MCH (27.0 - 31.0 PG) 30.6 31.1 H RDW (11.5 - 14.5 %) 17.0 H 17.4 H Plt Count (130 - 400 /CUMM) 205 211 MPV (7.4 - 10.4 FL) 9.3 8.8 Gran % (42.2 - 75.2 %) 85.6 H 86.1 H Lymphocytes % (20.5 - 51.1 %) 5.2 L 5.4 L Monocytes % (1.7 - 9.3 %) 6.5 5.9 Eosinophils % (0 - 5 %) 2.3 2.3 Basophils % (0.0 - 2.0 %) 0.4 0.3 Absolute Granulocytes (1.4 - 6.5 /CUMM) 7.5 H 7.7 H Absolute Lymphocytes (1.2 - 3.4 /CUMM) 0.5 L 0.5 L Absolute Monocytes (0.10 - 0.60 /CUMM) 0.6 0.5 Absolute Eosinophils (0.0 - 0.7 /CUMM) 0.2 0.2 Absolute Basophils (0.0 - 0.2 /CUMM) 0 0 PUBS MCHC (33.0 - 37.0 G/DL) 32.9 L 33.5 12/10 12/09 12/09 0100 2152 1944 Chemistry Lactic Acid (0.7 - 2.1 mmol/L) 1.2 Troponin I (<0.11 ng/ml) 0.24 *H Urines Urinalysis LIGHT H Urine Color (YEL,AMB,STR) YEL Urine Clarity (CLEAR) CLEAR Urine pH (5.0 - 8.0) 6.0 Ur Specific [place] (1.001 - 1.035) 1.015 Urine Protein (NEG,<30 MG/DL) NEG Urine Ketones (NEG) NEG Urine Nitrite (NEG) NEG Urine Bilirubin (NEG) NEG Urine Urobilinogen (0.1 - 1.0 EU/dl) 0.2 Ur Leukocyte Esterase (NEG) NEG Ur Microscopic SEDIMENT EXAMINED Urine RBC (0 - 5 /HPF) 1-3 Ur Epithelial Cells (NONE,FEW) RARE Urine Mucus (FEW,NONE) FEW Urine Hemoglobin (NEG) TRACE-INTACT H Urine Glucose (N MG/DL) NEG 12/09 12/09 1750 1635 Blood Gas pH (7.35 - 7.45 PH) 7.34 L pCO2 (35 - 45 TORR) 22 L pO2 (80 - 100 TORR) 110 H HCO3 (21 - 28 MEQ/L) 12 L ABG O2 Sat (Measured) (>96.0 %) 97.0 P-50 (Temp Corrected) N Carboxyhemoglobin (1.5 - 5.0 %) 0.3 L O2 Concentration % R/A Temperature (97.0 - 100.0 FARH) 97.6 Chemistry Ammonia (9 - 30 umol/L) 17 Miscellaneous Phlebotomy Draw Site RIGHT BRACHIAL 12/09 163 Chemistry Sodium (137 - 145 mmol/L) 140 Potassium (3.5 - 5.1 mmol/L) 5.5 H Chloride (98 - 107 mmol/L) 106 Carbon Dioxide (22 - 30 mmol/L) 11 L Anion Gap (5 - 16) 23 H BUN (9 - 20 mg/dL) 202 *H Creatinine (0.7 - 1.2 mg/dL) 7.4 *H Estimated GFR (>60 ml/min) 7 L BUN/Creatinine Ratio (7 - 25 %) 27.3 H Glucose (65 - 99 mg/dL) 123 H Hemoglobin A1c (4.2 - 5.8 %) 5.8 Lactic Acid (0.7 - 2.1 mmol/L) 4.6 H Calcium (8.4 - 10.2 mg/dL) 9.5 Magnesium (1.6 - 2.3 mg/dL) 3.1 H Total Bilirubin (0.2 - 1.3 mg/dL) 0.8 AST (17 - 59 U/L) 51 ALT (21 - 72 U/L) 49 Alkaline Phosphatase (< 127 U/L) 46 Creatine Kinase (55 - 170 U/L) 556 H Troponin I (<0.11 ng/ml) 0.25 *H Total Protein (6.3 - 8.2 g/dL) 6.5 Albumin (3.5 - 5.0 g/dL) 3.5 Globulin (1.9 - 4.2 gm/dL) 3.0 Albumin/Globulin Ratio (1.1 - 2.2 %) 1.2 Vitamin B12 (239 - 931 pg/mL) 639 25-OH Vitamin D Total (30 - 100 ng/ml) 7.4 L Folate (2.76 - 20.0 ng/mL) 4.8 TSH &T3 &Free T4 Intrp (0.27 - 4.20 uIU/mL) 3.780 Coagulation PT (9.4 - 12.5 SEC) 57.2 *H INR (0.90 - 1.17) 5.54 *H APTT (25 - 37 SEC) 102 *H Hematology CBC w Diff NO MAN DIFF REQ WBC (4.8 - 10.8 /CUMM) 12.5 H RBC (4.70 - 6.10 /CUMM) 2.61 L Hgb (14.0 - 18.0 G/DL) 8.0 L Hct (42 - 52 %) 24.3 L MCV (80.0 - 94.0 FL) 92.8 MCH (27.0 - 31.0 PG) 30.6 RDW (11.5 - 14.5 %) 17.4 H Plt Count (130 - 400 /CUMM) 329 MPV (7.4 - 10.4 FL) 9.8 Gran % (42.2 - 75.2 %) 90.6 H Lymphocytes % (20.5 - 51.1 %) 3.5 L Monocytes % (1.7 - 9.3 %) 5.2 Eosinophils % (0 - 5 %) 0.3 Basophils % (0.0 - 2.0 %) 0.4 Absolute Granulocytes (1.4 - 6.5 /CUMM) 11.3 H Absolute Lymphocytes (1.2 - 3.4 /CUMM) 0.4 L Absolute Monocytes (0.10 - 0.60 /CUMM) 0.7 H Absolute Eosinophils (0.0 - 0.7 /CUMM) 0 Absolute Basophils (0.0 - 0.2 /CUMM) 0 PUBS MCHC (33.0 - 37.0 G/DL) 33.0 Toxicology Serum Alcohol (<10 MG/DL) < 10.0 Acetone Level (NEGATIVE) NEGATIVE Imaging/Other Studies: 12/09/2016: EKG- afib @ 55, normal axis, IRBBB, NSST 12/09/2106: CT CERV SPINE WO IV CONTRAST; CT HEAD WO IV CONTRAST; CT MAXILLOFACIAL W/O CONTRAST- No acute intracranial process or discrete facial bone fracture. Moderate chronic small vessel ischemic changes. 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 No acute fracture or subluxation of the cervical spine. Mild to moderate spondylosis of the cervical spine. 12/09/2016: XRY-PORTABLE CHEST XRAY- No acute pulmonary disease. Enlarged cardiac silhouette which may reflect cardiomegaly and/or pericardial effusion. 12/09/2016: CT ABD & PELVIS W/O IV CONTRAST; CT CHEST WO IV CONTRAST- 1. No acute traumatic pathology in the chest, abdomen or pelvis. Minimal COPD. 3 mm granulima right lung apex. Old healed fracture right lateral seventh rib. DJD. 2. Atherosclerotic disease of coronary arteries and aorta without aortic aneurysm. No retroperitoneal hematoma. 3. Diverticulosis of the descending and sigmoid colon without diverticulitis. 4. 7 mm left renal cyst. No hydronephrosis. 12/11/2016: XRY-PORTABLE CHEST XRAY- Unremarkable examination. 12/11/2016: CT HEAD WITHOUT CONTRAST- No acute intracranial pathology. Limited assessment of the inferior half the posterior fossa due to motion artifact. 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 12/11/2016: EKG- afib @ 67, normal axis, RBBB, no acute ischemic change. Assessment/Plan Assessment/Recommendations: 80 y/o male, afib, ASHD, HTN, HLD, DM, PVD post L CEA, multiple avulsions to the LE B/L following a fall with the walker, EtOH abuse, & peripheral edema (on outpatient diuretics/ARB & Keflex). The patient presented to the [facility] ER 12/09/2016 at 4:00 p.m., with weakness, epistaxis for 5 days, B/L lower extremity cellulitis, diffuse rash, coagulopathy with INR 5.5, + lactate, ARF with BUN/Cr 202/7.4 (baseline Cr 1.4), K 5.5, anemia with Hgb 8, WBC 12.5, mildly elevated troponin (not felt to be ACS), metabolic acidosis & hypotension. 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 He was initially admitted to telemetry, then transferred to the ICU 12/11/2016, in view of renal failure & worsening mentation. He has not yet been seen by ENT. The epistaxis reportedly resolved. He has been seen by ICU, hematology, renal, wound care, neurology, & cardiology. Patient had a Mckinney catheter placed 12/11/2016, draining clear urine. The Mckinney was removed at the family's insistance, followed by bright red blood per urethra. There is no official POA or conservator, but the patient's daughter, Ashlyn Trivedi, who was at the bedside for part of my consult (as was her ), as was the patient's son, Mark, identifies herself as the major medical decision maker. Having stated that, she stated there was no definite living will or POA, and at times seemed to wish to defer to the patient's girlfriend for guidance, who is currently not at the hospital. In addition to the epistaxis, the patient apparently bit his lips and tongue, which contributed to the black OB-positive stool that was noted earlier today. He refused a digital rectal exam on admission. The patient is an alcoholic, reportedly 5-6 drinks per night. 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 He is also an ex- smoker, stopping over 20 years ago. The family denied him using any illicit drugs. The patient is unable to give any history whatsoever. He reportedly had a colonoscopy and possibly an upper endoscopy in [place], [place], unsure as to by whom or when. He was on outpatient Mesalamine 1600 mg po BID for unknown reasons. The family denied any knowledge of colitis. Aside from the Pradaxa, he was not on any aspirin or NSAIDs. The patient reportedly last took his Pradaxa 12/08/2016, 1 day [employer]. The patient's family denied the patient ever having had DTs, but I am not certain that he has stopped alcohol for an extended period of time in the past. His admission labs were not consistent with cirrhosis, with normal platelet count and normal albumin:globulin ratio. Again, his coagulopathy was felt to be from Pradaxa. He had a normal ammonia level. The patient's RAQUEL was felt to be from overdiuresis/pre-renal. The patient was seen by hematology 12/11/2016, and his bleeding was felt to be multifactorial, in part from Pradaxa (*prolonged t1/2 in severe renal failure is approximately 28 hours), uremia, and EtOH. DIC was possible as well, although his platelet count was normal. He INR certainly could be related to the Pradaxa. Hematology felt that reversing Pradaxa at this point with Praxbind was unlikely to be of benefit. His mental status remains extremely poor. There has been no witnessed hematemesis, BRBPR or hemoptysis. *No history is available from the patient. 12/09/2016: EKG- afib @ 55, normal axis, IRBBB, NSST 12/09/2106: CT CERV SPINE WO IV CONTRAST; CT HEAD WO IV CONTRAST; CT MAXILLOFACIAL W/O CONTRAST- No acute intracranial process or discrete facial bone fracture. Moderate chronic small vessel ischemic changes. 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 No acute fracture or subluxation of the cervical spine. Mild to moderate spondylosis of the cervical spine. 12/09/2016: XRY-PORTABLE CHEST XRAY- No acute pulmonary disease. Enlarged cardiac silhouette which may reflect cardiomegaly and/or pericardial effusion. 12/09/2016: CT ABD & PELVIS W/O IV CONTRAST; CT CHEST WO IV CONTRAST- 1. No acute traumatic pathology in the chest, abdomen or pelvis. Minimal COPD. 3 mm granulima right lung apex. Old healed fracture right lateral seventh rib. DJD. 2. Atherosclerotic disease of coronary arteries and aorta without aortic aneurysm. No retroperitoneal hematoma. 3. Diverticulosis of the descending and sigmoid colon without diverticulitis. 4. 7 mm left renal cyst. No hydronephrosis. 12/11/2016: XRY-PORTABLE CHEST XRAY- Unremarkable examination. 12/11/2016: CT HEAD WITHOUT CONTRAST- No acute intracranial pathology. Limited assessment of the inferior half the posterior fossa due to motion artifact. 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 12/11/2016: EKG- afib @ 67, normal axis, RBBB, no acute ischemic change. *At the moment, looking at the big picture, as the patient is not actively GI bleeding and has extremely poor mental status, I feel that EGD should be reserved for the time being. The patient's daughter, Ashlyn Trivedi, agrees with this, and does not want any invasive GI procedures done at the moment. As previously stated, the anemia is multifactorial, from Pradaxa, uremia, and EtOH. The black stools are probably residual from epistaxis, tongue biting, and lip biting. The patient's major bleeding at the moment appears to be hematuria, after Mciknney removal. The patient's normal platelet count and initial normal albumin:globulin ratio against cirrhosis. The coagulopathy is probably from the Pradaxa. SUGGEST: NPO for now (poor mental status). Aspiration precautions. Supportive care. Vitamin K 10 mg sc daily x 3 days. DIC panel (although normal platelet count). Check peripheral smear. T&C 4u PRBC. Check CBC Q8-12h for now. Keep Hgb > 8 (hx ASHD). 2 large bore IVs. Supplemental O2 as needed. IV PPI. DT precautions. Serial CIWA. Thiamine, folate, multivitamin. IV hydration per renal. Continue to hold Pradaxa. If epistaxis recurs, ENT consult. Try to get old [facility] records from [facility] (uncertain why patient was on Mesalamine, but would hold this for now, with ARF). Consideration for Praxbind (on hold for now, per hematology) , if bleeding becomes more problematic. Follow up with numerous consultants. Workup of rash as per medical team. Follow-up with wound care. The patient's family was informed that unless we are directed otherwise, the patient is a full code. I have no current plans for EGD (or colonoscopy for that matter), unless the patient is actively exsanguinating, and the patient's daughter, Ashlyn, & son , Mark agree with this. The above was discussed with the medical house staff and with Dr. Riley on 12/11/2016. He will attempt to have a family meeting regarding goals of care, and again, address code status. Please call if further inpatient GI input is needed. I left my office number at the bedside for the patient's family. Hopefully, if the patient improves, he can follow up with his usual [facility] business planning director as an outpatient. 1 hour of ICU care was spent on the patient. Problem List: 1. Anemia 2. Epistaxis 3. Hypotension 4. Occult blood positive stool 5. Alcohol abuse 6. Malnutrition 7. Diverticulosis of colon 8. Coagulopathy 9. Acute renal failure 10. Elevated troponin 11. Atrial fibrillation 12. Hematuria Copies To: NENA GIBBS,ANJALI Alfaro; DAMON GIBBS,JUAN Barrera; JOSEPH GIBBS,DANIEL; DESTINEE GIBBS, KHOA Victoria; CARLITA GIBBS,ZACH Barrera; MELVINA GIBBS,LARON; OLINDA GIBBS,ALICE; OSVALDO GIBBS,EVENS; ELROY GIBBS,KHOA Barrera Consult Acknowledgment - Thank you for your consult request.
[2016-12-11 18:17] LABS: PT 32.7 SEC (9.4-12.5); PTT 62 SEC (25-37)
--- NOTE | 2016-12-11 19:08 | Event Note ---
Event Note Event Note: S: This afternoon after a conversation with the ICU rn peritoneal dialysis Dr. Thompson an urgent consult was placed with neurology at approximately 12.15pm. B: At approximately 1723 I received a call back from an individual named Melita Patel (phone number [phone]) who stated that she had received a call from neurological specialsts phone number ([phone]) Re: Patient Mr. Mark Glasgow at the [facility]. She called me to inquire the status of what was going on. It seems that she had received this call in error. I subsequently recalled the neurological service and requested for an immediate stat call back from the physician software applications designer. At approximately 1746 I received a call back from Dr. Nunez. We briefly spoke about this patient. A/R: After presenting a brief history and clinical course of this patient since admission we reached the following differentials: The patient could be going through alcohol withdrawal or acute delirium. Attesting to no focal findings, being afebrile and having no white count or any meningeal signs as well as the head CT been clear of any pathology, it seems that this is non focal in etiolgy. Dr. Nunez did recommend that should the patient continued to be actively withdrawing from alcohol including signs of tremors, diaphoresis, tachycardia and elevated blood pressures continue the Ativan. In the event that the patient appears to be more sedated and somnolent may want to consider decreasing the scheduled Ativan. Should the patient deteriorate further please call back the software applications designer physician. In the interim Dr. Collins will try and see the patient as soon as he can.
--- NOTE | 2016-12-11 19:31 | PN- Urology ---
Surgical Brief Attending Note Brief Attending Note: Patient with continued urethral bleeding. Bladder scan shows close to 400 cc in bladder. Pt's daughter now agreeable with calhoun insertion. Attempted to place 3-way hematuria but was unsuccessful 18 fr 2-way coude catheter placed with return of clear urine. Findings most c/w patient having pulled previous calhoun part way out with balloon inflated Plan: 1. Leave 18 fr coude cal[address]oun in place 2. Irrigate calhoun manually prn poor drainage or hematuria with clots
[2016-12-11 20:00] VITALS: BP 100/58
--- NOTE | 2016-12-11 20:00 | NUR ---
IN TO PLACE CUDET SRIVASTAVA CATHETER.YELLOW URINE OBTAINED.BLEEDING NOTED AROUND. GAUZE PAD AT SITE TO MONITOR BLEEDING.PATIENT AROUSABLE BUT VERY DROWSY. R PUPIL IS PINPOINT AND L PUPIL IS 3.NETWORK DESIGNER MADE AWARE.MONITOR AFIB AT RATE OF 72.MANUAL GE=603/58. NASAL O2 ON AT 2L.O2 ICY=289%.
[2016-12-11 22:00] VITALS: BP 104/51
--- NOTE | 2016-12-11 22:00 | NUR ---
DAUGHTER AT BEDSIDE. WILL ANSWER DAUGHTERS QUESTIONS BUT FALLS OFF TO SLEEP READILY.RFA IV BLEEDING AT SITE.NEEDLE REMOVED. REQUIRED PRESSURE TO SITE TO STOP OOZING FROM SITE.DSD APPLIED.
[2016-12-12] VITALS: BP 130/60
[2016-12-12 02:00] VITALS: BP 120/66
--- NOTE | 2016-12-12 02:40 | NUR ---
PT WILL OCCASIONALLY WAKE AND MOVE AROUND BUT CONTINUES TO BE AROUSABLE TO TACTILE STIMULI. 2200 ATIVAN DOSE WAS HELD AND SALES VICE PRESIDENT MADE AWARE.SITTER AT BEDSIDE TO MAINTAIN SRIVASTAVA CATHETER AND MAINTAIN PTS SAFETY.
[2016-12-12 02:41] LABS: ABSOLUTE BASOPHIL COUNT 0 /CUMM (0.0-0.2); ABSOLUTE EOSINOPHIL COUNT 0.1 /CUMM (0.0-0.7); ABSOLUTE GRANULOCYTE CT 11.1 /CUMM (1.4-6.5); ABSOLUTE LYMPH COUNT 0.5 /CUMM (1.2-3.4); BASOPHIL % 0.1 % (0.0-2.0); EOSINOPHIL % 0.8 % (0-5); GRANULOCYTE % 87.7 % (42.2-75.2); HEMATOCRIT 24.1 % (42-52); MEAN CORPUSCULAR HGB 30.5 PG (27.0-31.0); MEAN CORPUSCULAR HGB CONC 33.1 G/DL (33.0-37.0); MEAN PLATELET VOLUME 9.2 FL (7.4-10.4); PLATELET COUNT 219 /CUMM (130-400); RBC DISTRIBUTION WIDTH 19.2 % (11.5-14.5); RED BLOOD CELL CT 2.63 /CUMM (4.70-6.10); WHITE BLOOD CELL COUNT 12.7 /CUMM (4.8-10.8)
[2016-12-12 06:00] VITALS: BP 104/44
--- NOTE | 2016-12-12 06:24 | PN- Resident CRCU ---
Subjective HPI/CRCU Issues: Mr Glasgow was seen and examined this morning. He still appears somnolent although was able to follow verbal commands during our interaction this morning. He was alert and oriented 2. He was unable to elicit much information and offered no active complaints. He is currently nothing by mouth owing to acute mental status changes. Currently has a sitter in place owing to increased agitation. 24 Hour Events: Patient required intervention from Urology for bladder catheterization. Objective Vital Signs & I&O Last 8 Hrs of Vitals and I&O: T: 96.5-98 HR: 60-80 RR: 16-24 Cuff: 99/44-134/60 O2 Sat: 92%-100% Urine output S I: 500 SII: 350 SIII: 98 Exam General Appearance: moderate distress Head: atraumatic, evidence of injury, Excoriation on Lips Ears, Nose, Throat: normal pharynx Respiratory: normal breath sounds, chest non-tender Cardiovascular: irregularly irregular Gastrointestinal: normal bowel sounds, soft, non-tender, no organomegaly Extremities: Diffuse erythmatous rash. Skin: Diffuse, erythematous rash. Upper left extremity, Right abdomnen/Flank Area Current Medications: Current Medications Sig/Marco Start time Last Medication Dose Route Stop Time Status Admin Acetaminophen 650 MG Q6P PRN 12/10 0015 DCD PO Collagenase 1 KEE DAILY 12/11 0900 DCD 12/12 TOP 0920 Dextrose/Sodium 500 ML Q3H 12/12 0915 DCD 12/12 Chloride IV 1020 Dextrose/Sodium 1,000 ML Q10H 12/11 0815 DC 12/12 Chloride IV 0659 Folic Acid 1 MG DAILY 12/10 1000 DCD 12/10 PO 1200 Insulin Aspart 0 TIDAC 12/10 0800 DC SC Insulin Detemir 10 UNITS DAILY 12/10 1000 DC 12/10 SC 1200 Insulin Human Regular 0 Q6 12/11 1800 DCD 12/12 SC 0549 Insulin Human Regular 0 ONCE ONE 12/11 1445 CAN IV 12/11 1446 Lorazepam 1 MG TID 12/11 1600 DCD 12/12 IV 0919 Lorazepam 0 Q1P PRN 12/10 0015 DCD 12/11 IV 1317 Multivitamins 1 TAB DAILY 12/10 1000 DCD 12/10 PO 1000 Nystatin 1 KEE TID 12/10 2200 DCD 12/12 TOP 0920 Pantoprazole Sodium 40 MG DAILY 12/10 1519 DCD 12/12 IV 0920 Phytonadione 5 MG ONCE ONE 12/12 0815 DC 12/12 SC 12/12 0816 0919 Phytonadione 5 MG ONCE ONE 12/11 1645 DC 12/11 SC 12/11 1646 1853 Phytonadione 5 MG ONE ONE 12/11 1600 CAN SC 12/11 1601 Phytonadione 10 MG ONCE ONE 12/11 1445 CAN SC 12/11 1446 Thiamine HCl 500 MG TID 12/11 1600 DCD 12/12 Sodium Chloride 100 ML IV 12/14 1059 0920 Thiamine HCl 100 MG DAILY 12/10 1000 DCD 12/10 PO 1200 Impression/Plan Impression/Problem List Impression: Mr. Glasgow is an 80-year-old gentleman with past medical history of hypertension, hyperlipidemia, atrial fibrillation on Pradaxa, diabetes mellitus, former nicotine use quit over 20 years ago, daily alcohol use (drinks between 3-6 units of beer and wine per day), who was brought into the emergency department at [facility] on 12/09/2016 after episodes repeated of epistaxis, multiple recurrent falls and being mentally altered from baseline. The patient is currently admitted to the intensive care unit for further management. Patients family has insisted to have the patient transferred to [facility]. A motion to put this in action was initiated and an accepting physician in the ICU was obtained. Neurology Patient continues to be altered. Likely to be multifactorial. Acute kidney injury, metabolic acidosis and uremia. His symptoms may have been precipitated by combination of the addition of a new medication, on top of previous routine medications, recent blood loss and poor PO intake. His mentals status has likely been complicated by continued use of alcohol. An urgent Neruology consult was placed (12/12/2016). Nephrology Improvements in BUN (202-->191-->146-->141) and creatinine (7.4-->5.8-->2.7--> 3.8) noted. Renal consultation obtained. Fluids changed to D5 1/3 NS at 200 ml/hr. Urology Initial attempts to have inserted a Calhoun was successful although the patient attempted on multiple occasions to pull the Calhoun out. Patient's family was at bedside expressed implicitly that they would not allow for a Calhoun to be placed. After prolonged discussion it was agreed that the Calhoun would be removed. Approximately 1 hour after Calhoun was removed the patient developed gross hematuria. This morning patient had a calhoun in place, which was draining well. No Hematuria, no clots. Hematology On day one of admission the patient had to be transfused 2 units of PRBCs. He responded adequately. This afternoon after an episode of hematuria owing to markedly elevated INR show a fall in H&H (7.0/22.4). 1 unit of PRBC, has been ordered. H/H this am: 7.1/20.5. Patient received one more unit of PRBC 2016. The patient was guaiac positive and may have had some docs stool as an outpatient could possibly be losing blood through GI losses. We have obtained a formal GI consultation. Peripharel smear, Lyme titre, tick borne disease ordered. Anemia work up: Iron Studies, folate, B12. LDH and haptoglobin. Cardiology Troponins trended to the peak of: 0.25-->0.24-->0.24. Likely elevated in the setting of RAQUEL and decrease troponin clearance. Echocardiogram showed no regional wall abnormalities and ejection fraction greater than 60%. Owing to the history of atrial fibrillation we will continue to hold Pradaxa for now. We may consider resuming this medication or beginning the patient on heparin for anticoagulation once the patient's mental status improves. Hold Pradaxa for now. Endocrinology The patient was originally placed on Levemir 10 units daily. We continued the patient on a NovoLog sliding scale. This morning owing to his altered mentation with currently made nothing by mouth. He is currently on D5 1/3 NS. Novolin R nothing by mouth scale. Finger sticks: 250 -->186 -->177 Dermatology The patient did have bilateral avulsion on lower extremities. A formal wound care consult was obtained. Lower extremity wounds to be debrided with Santyl and Xeroform. Patient may also benefit from an arterial ultrasound for evaluation of distal circulations once patient's stabilizes. #DVT prophylaxis Hold Pradaxa for now. #Code: Full code Problem List: 1. Coagulopathy 2. Atrial fibrillation 3. Diverticulosis of colon 4. Malnutrition 5. Occult blood positive stool 6. Hypotension 7. Epistaxis 8. Elevated troponin 9. Acute renal failure Pain Ratin Tomorrow's Labs & Rationales: NA Plan DVT/Prophylaxis: pharmacological (Currently On Hold)
[2016-12-12 08:00] VITALS: BP 122/52
--- NOTE | 2016-12-12 08:27 | PN- Nephrology ---
Assessment/Plan Assessment: Not clear why creatinine worsening after substantial intial improvement. Rash persisits so AIN possible. Still quite hypernatremic. Suggestion: Repeat chemistries this AM. If sodium still up consider changing to d51/3 at 200 an hour to give more free water and still give some volume expansion. Would get portably renal US to make sure we have good urinary drainage. If creatinine continues to worsen may need to consider dialysis although with bleedig diathesis catheter placement not without risk. Subjective Subjective: Difficulty with Mck[place] yesterday, evetually resinserted and draining clear urine. UO down to only 10 cc per hour and creatinine which was down to 2.7 was back up to 3.7. Still with SBP in low 100s. Still encepholopathic but somewehat clearer today. Objective Vital Signs and I&Os Vital Signs Date Time Temp Pulse Resp B/P B/P Pulse O2 O2 Flow FiO2 Mean Ox Delivery Rate 12/12 0600 77 24 104/44 12/12 0400 93 Nasal 2.0L Cannula 12/12 0200 78 24 120/66 12/12 0000 97.4 62 42 130/60 12/12 0000 97.4 62 24 130/60 100 Nasal 2.0L Cannula 12/12 0000 100 Nasal 2.0L Cannula 12/11 2200 74 24 104/51 12/12 1999 98.0 72 21 100/58 12/12 1999 100 Nasal 2.0L Cannula 12/11 1600 94 Nasal 2.0L Cannula 12/11 1600 96.5 64 20 110/60 95 Nasal 2.0L Cannula Intake & Output 12/12 1600 12/12 0400 12/11 1600 12/11 0400 12/10 0400 Intake Total 1050 1890 1300 3000 1000 Output Total 98 7250 645 1552 Balance 952 -10 650 1700 1000 Intake, Blood 600 Product Intake, IV 1050 1890 1200 1900 1000 Intake, Oral 0 100 500 0 Number 0 0 1 Bowel Movements Output, Urine 98 3008 480 8692 Patient 187 lb 187 lb 192 lb Weight Weight Bed scale Reported by Patient Measurement Method Physical Exam: No respiratory distress. VS as above Skin: maculopapular rash, similar to yesterday. Lungs: clear P&A CV: no rub Abd: nontender Exts: no edema Neuro: tremulous, confused but knew he is at , knew name. Current Medications: Current Medications Sig/Marco Start time Last Medication Dose Route Stop Time Status Admin Acetaminophen 650 MG Q6P PRN 12/10 0015 AC PO Atorvastatin Calcium 80 MG 1700 12/10 1700 DC 12/10 PO 1734 Collagenase 1 KEE DAILY 12/11 0900 AC 12/11 TOP 0900 Dextrose/Sodium 1,000 ML Q10H 12/11 0815 AC 12/12 Chloride IV 0659 Folic Acid 1 MG DAILY 12/10 1000 AC 12/10 PO 1200 Insulin Aspart 0 TIDAC 12/10 0800 DC SC Insulin Detemir 10 UNITS DAILY 12/10 1000 DC 12/10 SC 1200 Insulin Human Regular 0 Q6 12/11 1800 AC 12/12 SC 0549 Insulin Human Regular 0 ONCE ONE 12/11 1445 CAN IV 12/11 1446 Lorazepam 1 MG TID 12/11 1600 AC IV Lorazepam 1 MG BID 12/10 1000 DC 12/10 PO 2232 Lorazepam 0 Q1P PRN 12/10 0015 AC 12/11 IV 1317 Multivitamins 1 TAB DAILY 12/10 1000 AC 12/10 PO 1000 Nystatin 1 KEE TID 12/10 2200 AC 12/11 TOP 2233 Pantoprazole Sodium 40 MG DAILY 12/10 1519 AC 12/11 IV 1327 Phytonadione 5 MG ONCE ONE 12/12 0815 DC SD 12/12 0816 Phytonadione 5 MG ONCE ONE 12/11 1645 DC 12/11 SC 12/11 1646 1853 Phytonadione 5 MG ONE ONE 12/11 1600 CAN SD 12/11 1601 Phytonadione 10 MG ONCE ONE 12/11 1445 CAN SC 12/11 1446 Thiamine HCl 500 MG TID 12/11 1600 AC 12/11 Sodium Chloride 100 ML IV 12/14 1059 2236 Thiamine HCl 300 MG DAILY 12/11 1100 DC Sodium Chloride 100 ML IV 12/13 1012 Thiamine HCl 100 MG ONCE ONE 12/11 1045 CAN Sodium Chloride 100 ML IV 12/11 1144 Thiamine HCl 100 MG DAILY 12/10 1000 AC 12/10 PO 1200 Results Pertinent Lab Results: Laboratory Tests 12/12 12/12 12/11 0818 0200 1900 Chemistry Sodium (137 - 145 mmol/L) Pending 153 H Potassium (3.5 - 5.1 mmol/L) Pending 3.9 Chloride (98 - 107 mmol/L) Pending 119 H Carbon Dioxide (22 - 30 mmol/L) Pending 23 Anion Gap (5 - 16) Pending 12 BUN (9 - 20 mg/dL) Pending 149 *H Creatinine (0.7 - 1.2 mg/dL) Pending 3.7 H Estimated GFR (>60 ml/min) 16 L Glucose (65 - 99 mg/dL) Pending 144 H Calcium (8.4 - 10.2 mg/dL) Pending 8.9 Phosphorus (2.5 - 4.5 mg/dL) Pending 4.7 H Magnesium (1.6 - 2.3 mg/dL) Pending 2.7 H Total Bilirubin (0.2 - 1.3 mg/dL) Pending 0.8 AST (17 - 59 U/L) Pending 37 ALT (21 - 72 U/L) Pending 47 Albumin (3.5 - 5.0 g/dL) Pending 2.5 L Hematology CBC w Diff Pending MAN DIFF ORDERED Cancelled WBC (4.8 - 10.8 /CUMM) Pending 12.7 H Cancelled RBC (4.70 - 6.10 /CUMM) Pending 2.63 L Cancelled Hgb (14.0 - 18.0 G/DL) Pending 8.0 L Cancelled Hct (42 - 52 %) Pending 24.1 L Cancelled MCV (80.0 - 94.0 FL) Pending 92.0 Cancelled MCH (27.0 - 31.0 PG) Pending 30.5 Cancelled RDW (11.5 - 14.5 %) Pending 19.2 H Cancelled Plt Count (130 - 400 /CUMM) Pending 219 Cancelled MPV (7.4 - 10.4 FL) Pending 9.2 Cancelled Gran % (42.2 - 75.2 %) 87.7 H Lymphocytes % (20.5 - 51.1 %) 3.6 L Monocytes % (1.7 - 9.3 %) 7.8 Eosinophils % (0 - 5 %) 0.8 Basophils % (0.0 - 2.0 %) 0.1 Absolute Granulocytes (1.4 - 6.5 /CUMM) 11.1 H Segmented Neutrophils (42.2 - 75.2 %) 90 H Absolute Lymphocytes (1.2 - 3.4 /CUMM) 0.5 L Lymphocytes (20.5 - 51.1 %) 2 L Monocytes (1.7 - 9.3 %) 7 Absolute Monocytes (0.10 - 0.60 /CUMM) 1.0 H Eosinophils (0 - 5.0 %) 1 Absolute Eosinophils (0.0 - 0.7 /CUMM) 0.1 Absolute Basophils (0.0 - 0.2 /CUMM) 0 Nucleated RBCs (0.0 - 0.0 /100WBC) 1 H Platelet Estimate (ADEQUATE) ADEQUATE Polychromasia 1+ Poikilocytosis 1+ Ovalocytes 1+ Elliptocytes FEW PUBS MCHC (33.0 - 37.0 G/DL) Pending 33.1 Cancelled Other Body Source Fld Total RBCs Counted (%) 100 12/11 12/11 1740 1442 Coagulation PT (9.4 - 12.5 SEC) 32.7 H 31.7 H INR (0.90 - 1.17) 3.15 H 3.05 H APTT (25 - 37 SEC) 62 H 56 H Fibrinogen Activity (200 - 393 MG/DL) 296 Fibrin Degrad Products (< 10 ug/ml) > 40 ug/ml H Hematology CBC w Diff NO MAN DIFF REQ WBC (4.8 - 10.8 /CUMM) 9.7 RBC (4.70 - 6.10 /CUMM) 2.53 L Hgb (14.0 - 18.0 G/DL) 7.7 L Hct (42 - 52 %) 22.4 L MCV (80.0 - 94.0 FL) 88.7 MCH (27.0 - 31.0 PG) 30.2 RDW (11.5 - 14.5 %) 18.7 H Plt Count (130 - 400 /CUMM) 214 MPV (7.4 - 10.4 FL) 8.7 Gran % (42.2 - 75.2 %) 85.3 H Lymphocytes % (20.5 - 51.1 %) 4.1 L Monocytes % (1.7 - 9.3 %) 7.3 Eosinophils % (0 - 5 %) 3.1 Basophils % (0.0 - 2.0 %) 0.2 Absolute Granulocytes (1.4 - 6.5 /CUMM) 8.3 H Absolute Lymphocytes (1.2 - 3.4 /CUMM) 0.4 L Absolute Monocytes (0.10 - 0.60 /CUMM) 0.7 H Absolute Eosinophils (0.0 - 0.7 /CUMM) 0.3 Absolute Basophils (0.0 - 0.2 /CUMM) 0 PUBS MCHC (33.0 - 37.0 G/DL) 34.1 12/11 12/11 12/11 1320 0800 0800 Chemistry Sodium (137 - 145 mmol/L) 154 H 151 H Potassium (3.5 - 5.1 mmol/L) 3.4 L 3.5 Chloride (98 - 107 mmol/L) 119 H 115 H Carbon Dioxide (22 - 30 mmol/L) 21 L 23 Anion Gap (5 - 16) 11 13 BUN (9 - 20 mg/dL) 146 *H 152 *H Creatinine (0.7 - 1.2 mg/dL) 2.7 H 3.2 H Estimated GFR (>60 ml/min) 23 L 19 L BUN/Creatinine Ratio (7 - 25 %) 54.1 H 47.5 H Iron (49 - 181 ug/dL) 42 L TIBC (261 - 462 ug/dL) 341 Ferritin (17.9 - 464 ng/mL) 734.0 H Ammonia (9 - 30 umol/L) 9 Lactate Dehydrogenase (313 - 618 U/L) 714 H Vitamin B12 (239 - 931 pg/mL) 583 Folate (2.76 - 20.0 ng/mL) 5.9 Hematology CBC w Diff NO MAN DIFF REQ WBC (4.8 - 10.8 /CUMM) 8.4 RBC (4.70 - 6.10 /CUMM) 2.69 L Hgb (14.0 - 18.0 G/DL) 8.0 L Hct (42 - 52 %) 23.6 L MCV (80.0 - 94.0 FL) 88.0 MCH (27.0 - 31.0 PG) 29.9 RDW (11.5 - 14.5 %) 18.8 H Plt Count (130 - 400 /CUMM) 212 MPV (7.4 - 10.4 FL) 8.9 Gran % (42.2 - 75.2 %) 86.7 H Lymphocytes % (20.5 - 51.1 %) 3.0 L Monocytes % (1.7 - 9.3 %) 6.9 Eosinophils % (0 - 5 %) 3.4 Basophils % (0.0 - 2.0 %) 0 L Absolute Granulocytes (1.4 - 6.5 /CUMM) 7.3 H Absolute Lymphocytes (1.2 - 3.4 /CUMM) 0.3 L Absolute Monocytes (0.10 - 0.60 /CUMM) 0.6 Absolute Eosinophils (0.0 - 0.7 /CUMM) 0.3 Absolute Basophils (0.0 - 0.2 /CUMM) 0 PUBS MCHC (33.0 - 37.0 G/DL) 34.0 12/11 12/11 12/11 0744 0716 0710 Blood Gas pH (7.35 - 7.45 PH) 7.47 H pCO2 (35 - 45 TORR) 28 L pO2 (80 - 100 TORR) 125 H HCO3 (21 - 28 MEQ/L) 20 L ABG O2 Sat (Measured) (>96.0 %) 97.0 Carboxyhemoglobin (1.5 - 5.0 %) 0.3 L O2 Concentration % 2 LPM O2 Delivery Method NC Chemistry Troponin I Cancelled Hematology Haptoglobin Pending Miscellaneous Phlebotomy Draw Site RIGHT BRACHIAL 12/11 12/10 0310 1600 Chemistry Sodium (137 - 145 mmol/L) 151 H 146 H Potassium (3.5 - 5.1 mmol/L) 4.2 4.1 Chloride (98 - 107 mmol/L) 117 H 116 H Carbon Dioxide (22 - 30 mmol/L) 16 L 12 L Anion Gap (5 - 16) 17 H 18 H BUN (9 - 20 mg/dL) 168 *H > 240 *H Creatinine (0.7 - 1.2 mg/dL) 3.5 H 4.6 H Estimated GFR (>60 ml/min) 17 L 12 L BUN/Creatinine Ratio (7 - 25 %) 52.2 H Glucose (65 - 99 mg/dL) 187 H Calcium (8.4 - 10.2 mg/dL) 9.6 Phosphorus (2.5 - 4.5 mg/dL) 4.9 H 5.6 H Magnesium (1.6 - 2.3 mg/dL) 2.9 H 3.0 H Total Bilirubin (0.2 - 1.3 mg/dL) 0.8 AST (17 - 59 U/L) 46 ALT (21 - 72 U/L) 44 Troponin I (<0.11 ng/ml) 0.43 *H Albumin (3.5 - 5.0 g/dL) 2.8 L Hematology CBC w Diff MAN DIFF ORDERED NO MAN DIFF REQ WBC (4.8 - 10.8 /CUMM) 8.5 10.2 RBC (4.70 - 6.10 /CUMM) 2.97 L 2.62 L Hgb (14.0 - 18.0 G/DL) 8.9 L 8.0 L Hct (42 - 52 %) 26.5 L 23.5 L MCV (80.0 - 94.0 FL) 89.2 89.9 MCH (27.0 - 31.0 PG) 30.1 30.4 RDW (11.5 - 14.5 %) 18.7 H 17.0 H Plt Count (130 - 400 /CUMM) 215 196 MPV (7.4 - 10.4 FL) 9.3 9.2 Gran % (42.2 - 75.2 %) 83.1 H 87.9 H Lymphocytes % (20.5 - 51.1 %) 5.5 L 3.6 L Monocytes % (1.7 - 9.3 %) 6.7 5.7 Eosinophils % (0 - 5 %) 4.4 2.6 Basophils % (0.0 - 2.0 %) 0.3 0.2 Absolute Granulocytes (1.4 - 6.5 /CUMM) 7.0 H 9.0 H Segmented Neutrophils (42.2 - 75.2 %) 94 H Absolute Lymphocytes (1.2 - 3.4 /CUMM) 0.5 L 0.4 L Lymphocytes (20.5 - 51.1 %) 5 L Absolute Monocytes (0.10 - 0.60 /CUMM) 0.6 0.6 Eosinophils (0 - 5.0 %) 1 Absolute Eosinophils (0.0 - 0.7 /CUMM) 0.4 0.3 Absolute Basophils (0.0 - 0.2 /CUMM) 0 0 Nucleated RBCs (0.0 - 0.0 /100WBC) 1 H Platelet Estimate (ADEQUATE) ADEQUATE Polychromasia 1+ Ovalocytes 1+ PUBS MCHC (33.0 - 37.0 G/DL) 33.7 33.8 04/23 04/23 0876 0586 Chemistry Sodium (137 - 145 mmol/L) 141 Potassium (3.5 - 5.1 mmol/L) 4.5 Chloride (98 - 107 mmol/L) 112 H Carbon Dioxide (22 - 30 mmol/L) 12 L Anion Gap (5 - 16) 18 H BUN (9 - 20 mg/dL) 191 *H Creatinine (0.7 - 1.2 mg/dL) 5.8 *H Estimated GFR (>60 ml/min) 9 L BUN/Creatinine Ratio (7 - 25 %) 32.9 H Phosphorus (2.5 - 4.5 mg/dL) 5.8 H Creatine Kinase (55 - 170 U/L) 463 H Troponin I (<0.11 ng/ml) 0.24 *H Coagulation PT (9.4 - 12.5 SEC) 57.3 *H INR (0.90 - 1.17) 5.55 *H Hematology CBC w Diff NO MAN DIFF REQ NO MAN DIFF REQ WBC (4.8 - 10.8 /CUMM) 8.8 9.0 RBC (4.70 - 6.10 /CUMM) 2.02 L 2.02 L Hgb (14.0 - 18.0 G/DL) 6.2 *L 6.3 *L Hct (42 - 52 %) 18.8 *L 18.7 *L MCV (80.0 - 94.0 FL) 93.1 93.0 MCH (27.0 - 31.0 PG) 30.6 31.1 H RDW (11.5 - 14.5 %) 17.0 H 17.4 H Plt Count (130 - 400 /CUMM) 205 211 MPV (7.4 - 10.4 FL) 9.3 8.8 Gran % (42.2 - 75.2 %) 85.6 H 86.1 H Lymphocytes % (20.5 - 51.1 %) 5.2 L 5.4 L Monocytes % (1.7 - 9.3 %) 6.5 5.9 Eosinophils % (0 - 5 %) 2.3 2.3 Basophils % (0.0 - 2.0 %) 0.4 0.3 Absolute Granulocytes (1.4 - 6.5 /CUMM) 7.5 H 7.7 H Absolute Lymphocytes (1.2 - 3.4 /CUMM) 0.5 L 0.5 L Absolute Monocytes (0.10 - 0.60 /CUMM) 0.6 0.5 Absolute Eosinophils (0.0 - 0.7 /CUMM) 0.2 0.2 Absolute Basophils (0.0 - 0.2 /CUMM) 0 0 PUBS MCHC (33.0 - 37.0 G/DL) 32.9 L 33.5 12/10 12/09 12/09 0100 2153 1945 Chemistry Lactic Acid (0.7 - 2.1 mmol/L) 1.2 Troponin I (<0.11 ng/ml) 0.24 *H Urines Urinalysis LIGHT H Urine Color (YEL,AMB,STR) YEL Urine Clarity (CLEAR) CLEAR Urine pH (5.0 - 8.0) 6.0 Ur Specific [place] (1.001 - 1.035) 1.015 Urine Protein (NEG,<30 MG/DL) NEG Urine Ketones (NEG) NEG Urine Nitrite (NEG) NEG Urine Bilirubin (NEG) NEG Urine Urobilinogen (0.1 - 1.0 EU/dl) 0.2 Ur Leukocyte Esterase (NEG) NEG Ur Microscopic SEDIMENT EXAMINED Urine RBC (0 - 5 /HPF) 1-3 Ur Epithelial Cells (NONE,FEW) RARE Urine Mucus (FEW,NONE) FEW Urine Hemoglobin (NEG) TRACE-INTACT H Urine Glucose (N MG/DL) NEG 12/09 12/09 1750 1635 Blood Gas pH (7.35 - 7.45 PH) 7.34 L pCO2 (35 - 45 TORR) 22 L pO2 (80 - 100 TORR) 110 H HCO3 (21 - 28 MEQ/L) 12 L ABG O2 Sat (Measured) (>96.0 %) 97.0 P-50 (Temp Corrected) N Carboxyhemoglobin (1.5 - 5.0 %) 0.3 L O2 Concentration % R/A Temperature (97.0 - 100.0 FARH) 97.6 Chemistry Ammonia (9 - 30 umol/L) 17 Miscellaneous Phlebotomy Draw Site RIGHT BRACHIAL 12/09 1635 Chemistry Sodium (137 - 145 mmol/L) 140 Potassium (3.5 - 5.1 mmol/L) 5.5 H Chloride (98 - 107 mmol/L) 106 Carbon Dioxide (22 - 30 mmol/L) 11 L Anion Gap (5 - 16) 23 H BUN (9 - 20 mg/dL) 202 *H Creatinine (0.7 - 1.2 mg/dL) 7.4 *H Estimated GFR (>60 ml/min) 7 L BUN/Creatinine Ratio (7 - 25 %) 27.3 H Glucose (65 - 99 mg/dL) 123 H Hemoglobin A1c (4.2 - 5.8 %) 5.8 Lactic Acid (0.7 - 2.1 mmol/L) 4.6 H Calcium (8.4 - 10.2 mg/dL) 9.5 Magnesium (1.6 - 2.3 mg/dL) 3.1 H Total Bilirubin (0.2 - 1.3 mg/dL) 0.8 AST (17 - 59 U/L) 51 ALT (21 - 72 U/L) 49 Alkaline Phosphatase (< 127 U/L) 46 Creatine Kinase (55 - 170 U/L) 556 H Troponin I (<0.11 ng/ml) 0.25 *H Total Protein (6.3 - 8.2 g/dL) 6.5 Albumin (3.5 - 5.0 g/dL) 3.5 Globulin (1.9 - 4.2 gm/dL) 3.0 Albumin/Globulin Ratio (1.1 - 2.2 %) 1.2 Vitamin B12 (239 - 931 pg/mL) 639 25-OH Vitamin D Total (30 - 100 ng/ml) 7.4 L Folate (2.76 - 20.0 ng/mL) 4.8 TSH &T3 &Free T4 Intrp (0.27 - 4.20 uIU/mL) 3.780 Coagulation PT (9.4 - 12.5 SEC) 57.2 *H INR (0.90 - 1.17) 5.54 *H APTT (25 - 37 SEC) 102 *H Hematology CBC w Diff NO MAN DIFF REQ WBC (4.8 - 10.8 /CUMM) 12.5 H RBC (4.70 - 6.10 /CUMM) 2.61 L Hgb (14.0 - 18.0 G/DL) 8.0 L Hct (42 - 52 %) 24.3 L MCV (80.0 - 94.0 FL) 92.8 MCH (27.0 - 31.0 PG) 30.6 RDW (11.5 - 14.5 %) 17.4 H Plt Count (130 - 400 /CUMM) 329 MPV (7.4 - 10.4 FL) 9.8 Gran % (42.2 - 75.2 %) 90.6 H Lymphocytes % (20.5 - 51.1 %) 3.5 L Monocytes % (1.7 - 9.3 %) 5.2 Eosinophils % (0 - 5 %) 0.3 Basophils % (0.0 - 2.0 %) 0.4 Absolute Granulocytes (1.4 - 6.5 /CUMM) 11.3 H Absolute Lymphocytes (1.2 - 3.4 /CUMM) 0.4 L Absolute Monocytes (0.10 - 0.60 /CUMM) 0.7 H Absolute Eosinophils (0.0 - 0.7 /CUMM) 0 Absolute Basophils (0.0 - 0.2 /CUMM) 0 PUBS MCHC (33.0 - 37.0 G/DL) 33.0 Toxicology Serum Alcohol (<10 MG/DL) < 10.0 Acetone Level (NEGATIVE) NEGATIVE
[2016-12-12 08:37] LABS: ABSOLUTE BASOPHIL COUNT 0 /CUMM (0.0-0.2); ABSOLUTE EOSINOPHIL COUNT 0.1 /CUMM (0.0-0.7); ABSOLUTE LYMPH COUNT 0.4 /CUMM (1.2-3.4); ABSOLUTE MONOCYTE COUNT 0.9 /CUMM (0.10-0.60); MEAN CORPUSCULAR VOLUME 91.5 FL (80.0-94.0)
[2016-12-12 08:46] LABS: ABSOLUTE GRANULOCYTE CT 9.4 /CUMM (1.4-6.5); BASOPHIL % 0.1 % (0.0-2.0); EOSINOPHIL % 0.8 % (0-5); HEMATOCRIT 20.5 % (42-52); MEAN CORPUSCULAR HGB 31.6 PG (27.0-31.0); MEAN CORPUSCULAR HGB CONC 34.5 G/DL (33.0-37.0); MEAN PLATELET VOLUME 9.3 FL (7.4-10.4); PLATELET COUNT 184 /CUMM (130-400); RBC DISTRIBUTION WIDTH 18.3 % (11.5-14.5); RED BLOOD CELL CT 2.24 /CUMM (4.70-6.10); WHITE BLOOD CELL COUNT 10.8 /CUMM (4.8-10.8)
--- NOTE | 2016-12-12 09:10 | Discharge Summary ---
See Addendum Visit Information Visit Dates Admission Date: 12/09/16 Discharge Date: 12/12/16 Hospital Course Course Attending Physician: DANIEL RIUZ MD Primary Care Physician: KHOA ABBASI MD Hospital Course: Patient is an 80-year-old male with atrial fibrillation on dabigatran (held as inpatient), alcohol abuse, HTN, and DM who presented to the hospital with epistaxis. Per her female friend patient is reportedly a heavy drinker with 5-6 drinks a night. He has had frequent falls with last about 6 weeks ago. He has had decrease appetite and consistant alcohol usage. Per report, he also has had blood in stool and lower extremity edema. Patient was recently started on torsemide at a relatively high dose by his wellhead pumper Dr. Schrader and he was also on thiazide as part of a combination with and ARB. He states he was also taking some Motrin for pain relief and continued to drink a large volume of EtOH. He developed increasing weakness, then developed profound epistaxis and perhaps some GI bleeding which led him to the ED. In the ED he was found to be relative hypotensive with systolic bp in the 90s, anemic, acidotic (small lactate plus larger anion gapJ) and have greatly elevated BUN/cr at 202/7.4. Baseline creatinine is mildly elevated at 1.4. On exam: Alert and oriented on admission, more drowsy and lethargic progressively, diffuse erythematous macular rash over torso & extremities, mild respiratory distress, neck supple, JVD normal, no lymphadenopathy, mucosa dry, crusted blood on lips, dried blood clots and nostrils, no pharyngeal congestion, pupils are unequal, right smaller than left, right not much reactive, no evidence of any eye redness, no focal neurological deficit, no dependent edema, 2 ulcers on left lower extremity, 1 ulcer on the right lower extremity, chronic nonhealing, covered with bandage, does not appear infected, tender to touch, normal temperature, no redness CVS: S1-S2, irregular RS: Clear to auscultate bilaterally. Abdomen: Soft, NT, ND, bowel sounds present. Pertinent labs on admission WBC 12.5 with neutrophils 90%, hemoglobin 8.0, platelet 329, sodium 140, potassium 5.5, chloride 106, bicarbonate 11, BUN 202, creatinine 7.4, glucose 123, calcium 9.5, anion gap 23, lactate 4.6, LFT unremarkable, troponin 0.25, INR 5.54, UA unremarkable, negative alcohol level ABG: Units 7.34/22/110/[address] chest, CT abdomen and pelvis, CT maxillofacial, CT head, CT cervical spine, x -ray chest was obtained. 1. No acute traumatic pathology in the chest, abdomen or pelvis. 2. Atherosclerotic disease of coronary arteries and aorta without aortic aneurysm. No retroperitoneal hematoma. 3. Diverticulosis of the descending and sigmoid colon without diverticulitis. 4. No acute intracranial process or discrete facial bone fracture. Moderate chronic small vessel ischemic changes. 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 5. No acute fracture or subluxation of the cervical spine. Mild to moderate spondylosis of the cervical spine. Head CT 12/11/16 No acute intracranial pathology. Limited assessment of the inferior half the posterior fossa due to motion artifact. 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 EKG: A. fib with underlying conduction defect, progressed to Right BBB during admission. Problem list 1. Epistaxis 2. Transient hypotension 3. Acute on chronic renal failure 4. Coagulopathy secondary to Pradaxa 5. History of A. fib 6. Elevated troponins 7. Chronic nonhealing bilateral lower extremity wounds 8. Anemia 9. High anion gap and non-anion gap acidosis : Secondary to Lactic acidosis and acute kidney injury 10. ETOH detox 11. Hypernatremia Altered mental status Likely secondary to alcohol withdrawal versus metabolic acidosis versus uremia. Head CT was done on 12/11/16 which was not significant for any acute intracranial pathology. Patient was continued on Ativan for CIWA scale given his extensive drinking history. Serum ammonia was 9. Neurology consult service was requested. Acute Kidney Injury on Chronic Kidney disease with hypernatremia RAQUEL probably from overdiuresis (loop and thiazide diuretic) and blood loss/ diarrhea in combination with ARB and NSAIDs. Patient was started on IV hydration with NaHCO3 150 cc/ hour to help his acidosis. Patient became very confused subsequently however was still oriented to self and place. His fluids were changed to D5 half-normal due to encephalopathy with respiratory alkalosis. Dr. Keen from nephrology consult service was on board. Uretheral bleed On 12/11/16, due to incontinence and strict intake and output monitor, Calhoun catheter was inserted however patient was very agitated and continued to pull on the calhoun catheter. Per family's insistence the calhoun catheter was removed with subsequently led to gross hematuria. It was thought that his urethral bleed is probably due to the residual affect of Pradaxa. Urology was consulted, 18 fr coude calhoun was inserted with instructions to irrigate Calhoun manually as the day. Acute blood loss anemia Patient was admitted with a hemoglobin of 6.3, which was attributed to his epistaxis and GI bleed. As an outpatient patient was following GI and was taking mesalamine for a possible underlying inflammatory bowel disease. Patient was evaluated by GI, and it was decided that the EGD will be on hold unless the patient is actively bleeding per rectum. The daughter was in agreement. Neonatal Icu Coordinator was on board, and it was decided that we will hold Praxbind for now and continue to monitor for further bleed. Got a total of 3 units of blood transfusion and 1 unit will be transfused today. Elevated troponins Patient had elevated troponins on admission, it was thought to be secondary to demand ischemia due to the initial hypotension on admission. The consistent elevation was explained by acute kidney injury. Cardiology consult service was on board. Patient had an echocardiogram performed during the hospital stay. Atrial fibrillation with underlying conduction defect Patient also continued to have periods of bradycardia due to underlying conduction defect. Patient was evaluated by cardiology. His anticoagulation was held in the hospital and recommendations were to avoid any AV blocking agents Itchy diffuse erythematous macular rash over torso & extremities The rash was itchy in nature. It was thought to be due to action but patient did have a history of exposure to [place] and possible tick bites. Lyme titer and TICK panel was sent. Patient is full code Allergies: Coded Allergies: No Known Allergies (12/09/16) Disposition Summary Disposition Principal Diagnosis: Acute on chronic kidney disease Alcohol Detox treatment Epistaxis Hematuria Demand ischemia Additional Diagnosis: History of A. fib Diabetes mellitus Discharge Disposition: other general hospital Discharge Instructions General Discharge Information Code Status: Full Code Patient's Diet: NPO for AMS Patient's Activity: As tolerated when more awake and alert Follow-Up Instructions/Appts: Patient is being transfered to [facility] for specialized care. Copies To: OLINDA GIBBS,ALICE; OSVALDO GIBBS,EVENS; ELROY GIBBS,KHOA Barrera
--- NOTE | 2016-12-12 09:22 | PN- Hematology ---
Subjective Subjective: He was transfused with 1 unit of pRBC yesterday. Calhoun was placed yesterday. He reports no pain. Mental status is disoriented. Review of Systems: Unable to be obtained due to mental status. Objective Vital Signs and I&Os Vital Signs Date Time Temp Pulse Resp B/P B/P Pulse O2 O2 Flow FiO2 Mean Ox Delivery Rate 12/12 0600 77 24 104/44 12/12 0400 93 Nasal 2.0L Cannula 12/12 0200 78 24 120/66 12/12 0000 97.4 62 42 130/60 12/12 0000 97.4 62 24 130/60 100 Nasal 2.0L Cannula 12/12 0000 100 Nasal 2.0L Cannula 12/11 2200 74 24 104/51 12/11 2000 98.0 72 21 100/58 12/11 2000 100 Nasal 2.0L Cannula 12/11 1600 94 Nasal 2.0L Cannula 12/11 1600 96.5 64 20 110/60 95 Nasal 2.0L Cannula Intake & Output 12/12 1600 12/12 0800 12/12 0000 12/11 1600 12/11 0800 12/11 0000 Intake Total 1050 5191 299 1107 1300 Output Total 98 735 153 2635 650 Balance 952 991 300 -310 650 Intake, IV 1050 5788 009 2921 1200 Intake, Oral 0 100 Number 0 0 Bowel Movements Output, Urine 98 953 910 4574 650 Patient 84.822 kg Weight Physical Exam: General Appearance: lethargic, disoriented Head: atraumatic, normal appearance Ears, Nose, Throat: dry mucus membranes, dry blood in posterior OP, dry blood in nares Neck: supple Respiratory: chest non-tender, rhonchi Cardiovascular: irregularly irregular Gastrointestinal: normal bowel sounds, soft, non-tender Extremities: pedal edema, bilateral lower extremity ulceration and ecchymoses Neurologic/Psych: somnolent and disoriented Skin: ecchymosis; diffuse macular rash in the abdomen, back, and extremities. Lymphatic: no anterior cervical birdie Current Medications: Current Medications Sig/Marco Start time Last Medication Dose Route Stop Time Status Admin Acetaminophen 650 MG Q6P PRN 12/10 0015 AC PO Atorvastatin Calcium 80 MG 1700 12/10 1700 DC 12/10 PO 1734 Collagenase 1 KEE DAILY 12/11 0900 AC 12/11 TOP 0900 Dextrose/Sodium 1,000 ML Q10H 12/11 0815 AC 12/12 Chloride IV 0659 Folic Acid 1 MG DAILY 12/10 1000 AC 12/10 PO 1200 Insulin Aspart 0 TIDAC 12/10 0800 DC SC Insulin Detemir 10 UNITS DAILY 12/10 1000 DC 12/10 SC 1200 Insulin Human Regular 0 Q6 12/11 1800 AC 12/12 SC 0549 Insulin Human Regular 0 ONCE ONE 12/11 1445 CAN IV 12/11 1446 Lorazepam 1 MG TID 12/11 1600 AC IV Lorazepam 1 MG BID 12/10 1000 DC 12/10 PO 2232 Lorazepam 0 Q1P PRN 12/10 0015 AC 12/11 IV 1317 Multivitamins 1 TAB DAILY 12/10 1000 AC 12/10 PO 1000 Nystatin 1 KEE TID 12/10 2200 AC 12/11 TOP 2233 Pantoprazole Sodium 40 MG DAILY 12/10 1519 AC 12/11 IV 1327 Phytonadione 5 MG ONCE ONE 12/12 0815 DC SC 12/12 0816 Phytonadione 5 MG ONCE ONE 12/11 1645 DC 12/11 SC 12/11 1646 1853 Phytonadione 5 MG ONE ONE 12/11 1600 CAN SC 12/11 1601 Phytonadione 10 MG ONCE ONE 12/11 1445 CAN SC 12/11 1446 Thiamine HCl 500 MG TID 12/11 1600 AC 12/11 Sodium Chloride 100 ML IV 12/14 1059 2236 Thiamine HCl 300 MG DAILY 12/11 1100 DC Sodium Chloride 100 ML IV 12/13 1012 Thiamine HCl 100 MG ONCE ONE 12/11 1045 CAN Sodium Chloride 100 ML IV 12/11 1144 Thiamine HCl 100 MG DAILY 12/10 1000 AC 12/10 PO 1200 Results Last 24 Hours of Lab Results: Laboratory Tests 12/12 12/12 12/11 0818 0200 1900 Chemistry Sodium (137 - 145 mmol/L) Pending 153 H Potassium (3.5 - 5.1 mmol/L) Pending 3.9 Chloride (98 - 107 mmol/L) Pending 119 H Carbon Dioxide (22 - 30 mmol/L) Pending 23 Anion Gap (5 - 16) Pending 12 BUN (9 - 20 mg/dL) Pending 149 *H Creatinine (0.7 - 1.2 mg/dL) Pending 3.7 H Estimated GFR (>60 ml/min) 16 L Glucose (65 - 99 mg/dL) Pending 144 H Calcium (8.4 - 10.2 mg/dL) Pending 8.9 Phosphorus (2.5 - 4.5 mg/dL) Pending 4.7 H Magnesium (1.6 - 2.3 mg/dL) Pending 2.7 H Total Bilirubin (0.2 - 1.3 mg/dL) Pending 0.8 AST (17 - 59 U/L) Pending 37 ALT (21 - 72 U/L) Pending 47 Albumin (3.5 - 5.0 g/dL) Pending 2.5 L Hematology CBC w Diff Pending MAN DIFF ORDERED Cancelled WBC (4.8 - 10.8 /CUMM) Pending 12.7 H Cancelled RBC (4.70 - 6.10 /CUMM) Pending 2.63 L Cancelled Hgb (14.0 - 18.0 G/DL) Pending 8.0 L Cancelled Hct (42 - 52 %) Pending 24.1 L Cancelled MCV (80.0 - 94.0 FL) Pending 92.0 Cancelled MCH (27.0 - 31.0 PG) Pending 30.5 Cancelled RDW (11.5 - 14.5 %) Pending 19.2 H Cancelled Plt Count (130 - 400 /CUMM) Pending 219 Cancelled MPV (7.4 - 10.4 FL) Pending 9.2 Cancelled Gran % (42.2 - 75.2 %) 87.7 H Lymphocytes % (20.5 - 51.1 %) 3.6 L Monocytes % (1.7 - 9.3 %) 7.8 Eosinophils % (0 - 5 %) 0.8 Basophils % (0.0 - 2.0 %) 0.1 Absolute Granulocytes (1.4 - 6.5 /CUMM) 11.1 H Segmented Neutrophils (42.2 - 75.2 %) 90 H Absolute Lymphocytes (1.2 - 3.4 /CUMM) 0.5 L Lymphocytes (20.5 - 51.1 %) 2 L Monocytes (1.7 - 9.3 %) 7 Absolute Monocytes (0.10 - 0.60 /CUMM) 1.0 H Eosinophils (0 - 5.0 %) 1 Absolute Eosinophils (0.0 - 0.7 /CUMM) 0.1 Absolute Basophils (0.0 - 0.2 /CUMM) 0 Nucleated RBCs (0.0 - 0.0 /100WBC) 1 H Platelet Estimate (ADEQUATE) ADEQUATE Polychromasia 1+ Poikilocytosis 1+ Ovalocytes 1+ Elliptocytes FEW PUBS MCHC (33.0 - 37.0 G/DL) Pending 33.1 Cancelled Other Body Source Fld Total RBCs Counted (%) 100 12/11 12/11 1740 1442 Coagulation PT (9.4 - 12.5 SEC) 32.7 H 31.7 H INR (0.90 - 1.17) 3.15 H 3.05 H APTT (25 - 37 SEC) 62 H 56 H Fibrinogen Activity (200 - 393 MG/DL) 296 Fibrin Degrad Products (< 10 ug/ml) > 40 ug/ml H Hematology CBC w Diff NO MAN DIFF REQ WBC (4.8 - 10.8 /CUMM) 9.7 RBC (4.70 - 6.10 /CUMM) 2.53 L Hgb (14.0 - 18.0 G/DL) 7.7 L Hct (42 - 52 %) 22.4 L MCV (80.0 - 94.0 FL) 88.7 MCH (27.0 - 31.0 PG) 30.2 RDW (11.5 - 14.5 %) 18.7 H Plt Count (130 - 400 /CUMM) 214 MPV (7.4 - 10.4 FL) 8.7 Gran % (42.2 - 75.2 %) 85.3 H Lymphocytes % (20.5 - 51.1 %) 4.1 L Monocytes % (1.7 - 9.3 %) 7.3 Eosinophils % (0 - 5 %) 3.1 Basophils % (0.0 - 2.0 %) 0.2 Absolute Granulocytes (1.4 - 6.5 /CUMM) 8.3 H Absolute Lymphocytes (1.2 - 3.4 /CUMM) 0.4 L Absolute Monocytes (0.10 - 0.60 /CUMM) 0.7 H Absolute Eosinophils (0.0 - 0.7 /CUMM) 0.3 Absolute Basophils (0.0 - 0.2 /CUMM) 0 PUBS MCHC (33.0 - 37.0 G/DL) 34.1 04/24 1320 Chemistry Sodium (137 - 145 mmol/L) 154 H Potassium (3.5 - 5.1 mmol/L) 3.4 L Chloride (98 - 107 mmol/L) 119 H Carbon Dioxide (22 - 30 mmol/L) 21 L Anion Gap (5 - 16) 11 BUN (9 - 20 mg/dL) 146 *H Creatinine (0.7 - 1.2 mg/dL) 2.7 H Estimated GFR (>60 ml/min) 23 L BUN/Creatinine Ratio (7 - 25 %) 54.1 H Hematology CBC w Diff NO MAN DIFF REQ WBC (4.8 - 10.8 /CUMM) 8.4 RBC (4.70 - 6.10 /CUMM) 2.69 L Hgb (14.0 - 18.0 G/DL) 8.0 L Hct (42 - 52 %) 23.6 L MCV (80.0 - 94.0 FL) 88.0 MCH (27.0 - 31.0 PG) 29.9 RDW (11.5 - 14.5 %) 18.8 H Plt Count (130 - 400 /CUMM) 212 MPV (7.4 - 10.4 FL) 8.9 Gran % (42.2 - 75.2 %) 86.7 H Lymphocytes % (20.5 - 51.1 %) 3.0 L Monocytes % (1.7 - 9.3 %) 6.9 Eosinophils % (0 - 5 %) 3.4 Basophils % (0.0 - 2.0 %) 0 L Absolute Granulocytes (1.4 - 6.5 /CUMM) 7.3 H Absolute Lymphocytes (1.2 - 3.4 /CUMM) 0.3 L Absolute Monocytes (0.10 - 0.60 /CUMM) 0.6 Absolute Eosinophils (0.0 - 0.7 /CUMM) 0.3 Absolute Basophils (0.0 - 0.2 /CUMM) 0 PUBS MCHC (33.0 - 37.0 G/DL) 34.0 Assessment/Plan Assessment/Recommendations: Mr. Glasgow is an 80-year-old male with atrial fibrillation on dabigatran, HTN, HLD , and alcohol abuse who presents with epistaxis. He was noted to have anemia, elevated INR, RAQUEL, AMS, and hematuria from trauma from calhoun. He continues to have some blood loss from calhoun trauma. He no longer has any epistaxis. Due to persistent bleeding, hematology is consulted to evaluate the need to reverse dabigatran. His bleeding is likely secondary to multiple factors including alcohol usage, RAQUEL with severe uremia, and anticoagulation with dabigatran. His last dabigatran is prior to admission (12/09) but is unclear on the time. He is about >48 hours out from last dabigatran. With severe renal failure, the half- life should be around 28 hours. Dabigatran is less likely responsible for bleeding issues. His INR is elevated. He was given vitamin K 5 mg SC yesterday. DIC panel was notable for elevated FDG but fibrinogen was normal. DIC can be monitored for now. If he dose have more hematuria, option includes intravesicular Amicar. IV Amicar may also be used but increased risk of thrombosis. He should be monitored for now. Recommendations: 1. Continue with monitoring DIC panel daily, cyro if fibrinogen<100 2. Continue Vitamin K 5 mg SC x 2 more days 3. Hold Pradaxa 4. FFP/Cyro prn bleeding 5. Can consider intravesicular tranexamic acid or IV tranexamic acid if acute bleeding Please call [phone] with any questions. Problem List: 1. Coagulopathy 2. Atrial fibrillation 3. Hematuria 4. Alcohol abuse 5. Epistaxis 6. Anemia 7. Acute renal failure
--- NOTE | 2016-12-12 09:28 | PN- Cardiology ---
Subjective Subjective: Patient remains lethargic. Unable to answer questions. Review of Systems: Unobtainable Objective Vital Signs and I&Os Vital Signs Date Time Temp Pulse Resp B/P B/P Pulse O2 O2 Flow FiO2 Mean Ox Delivery Rate 12/12 08 98.4 79 22 122/52 100 Nasal 2.0L Cannula 12/12 0800 99 Nasal 2.0L Cannula 12/12 0600 77 24 104/44 12/12 0400 93 Nasal 2.0L Cannula 12/12 0200 78 24 120/66 12/12 0000 97.4 62 42 130/60 12/12 0000 97.4 62 24 130/60 100 Nasal 2.0L Cannula 12/12 0000 100 Nasal 2.0L Cannula 12/11 2200 74 24 104/51 12/11 2000 98.0 72 21 100/58 12/11 2000 100 Nasal 2.0L Cannula 12/11 1600 94 Nasal 2.0L Cannula 12/11 1600 96.5 64 20 110/60 95 Nasal 2.0L Cannula Intake & Output 12/12 1600 12/12 0800 12/12 0000 12/11 1600 12/11 0800 12/11 0000 Intake Total 1050 6401 370 3281 1300 Output Total 98 017 963 1969 650 Balance 952 991 300 -310 650 Intake, IV 1050 0877 653 9127 1200 Intake, Oral 0 100 Number 0 0 Bowel Movements Output, Urine 98 744 552 3110 650 Patient 187 lb Weight Physical Exam: Patient is a well-developed well-nourished male lethargic appearing agitated HEENT is unremarkable Neck is supple there is no JVD Lungs few scattered rhonchi Heart irregular rhythm S1 and S2 are normal no murmurs gallops or rubs Abdomen bowel sounds positive Extremities without edema Skin diffuse rash noted Current Medications: Current Medications Sig/Marco Start time Last Medication Dose Route Stop Time Status Admin Acetaminophen 650 MG Q6P PRN 12/10 0015 AC PO Atorvastatin Calcium 80 MG 1700 12/10 1700 DC 12/10 PO 1734 Collagenase 1 KEE DAILY 12/11 0900 AC 12/12 TOP 0920 Dextrose/Sodium 500 ML Q3H 12/12 0915 AC Chloride IV Dextrose/Sodium 1,000 ML Q10H 12/11 0815 DC 12/12 Chloride IV 0659 Folic Acid 1 MG DAILY 12/10 1000 AC 12/10 PO 1200 Insulin Aspart 0 TIDAC 12/10 0800 DC SC Insulin Detemir 10 UNITS DAILY 12/10 1000 DC 12/10 SC 1200 Insulin Human Regular 0 Q6 12/11 1800 AC 12/12 SC 0549 Insulin Human Regular 0 ONCE ONE 12/11 1445 CAN IV 12/11 1446 Lorazepam 1 MG TID 12/11 1600 AC 12/12 IV 0919 Lorazepam 1 MG BID 12/10 1000 DC 12/10 PO 2232 Lorazepam 0 Q1P PRN 12/10 0015 AC 12/11 IV 1317 Multivitamins 1 TAB DAILY 12/10 1000 AC 12/10 PO 1000 Nystatin 1 KEE TID 12/10 2200 AC 12/12 TOP 0920 Pantoprazole Sodium 40 MG DAILY 12/10 1519 AC 12/12 IV 0920 Phytonadione 5 MG ONCE ONE 12/12 0815 DC 12/12 SC 12/12 0816 0919 Phytonadione 5 MG ONCE ONE 12/11 1645 DC 12/11 SC 12/11 1646 1853 Phytonadione 5 MG ONE ONE 12/11 1600 CAN SC 12/11 1601 Phytonadione 10 MG ONCE ONE 12/11 1445 CAN SC 12/11 1446 Thiamine HCl 500 MG TID 12/11 1600 AC 12/12 Sodium Chloride 100 ML IV 12/14 1059 0920 Thiamine HCl 300 MG DAILY 12/11 1100 DC Sodium Chloride 100 ML IV 12/13 1012 Thiamine HCl 100 MG ONCE ONE 12/11 1045 CAN Sodium Chloride 100 ML IV 12/11 1144 Thiamine HCl 100 MG DAILY 12/10 1000 AC 12/10 PO 1200 Results Last 48 Hrs of Labs/Mics: Laboratory Tests 12/12/16 0818: Anion Gap 10, Estimated GFR 15 L, Glucose 133 H, Calcium 8.3 L, Phosphorus 4.1, Magnesium 2.5 H, Total Bilirubin 0.6, AST 34, ALT 47, Albumin 2.1 L, CBC w Diff Pending, WBC Pending, RBC Pending, Hgb Pending, Hct Pending, MCV Pending, MCH Pending, RDW Pending, Plt Count Pending, MPV Pending, Gran % Pending, Lymphocytes % Pending, Monocytes % Pending, Eosinophils % Pending, Basophils % Pending, Absolute Granulocytes Pending, Absolute Lymphocytes Pending, Absolute Monocytes Pending, Absolute Eosinophils Pending, Absolute Basophils Pending, PUBS MCHC Pending 12/12/16 0200: Anion Gap 12, Estimated GFR 16 L, Glucose 144 H, Calcium 8.9, Phosphorus 4.7 H, Magnesium 2.7 H, Total Bilirubin 0.8, AST 37, ALT 47, Albumin 2.5 L, CBC w Diff MAN DIFF ORDERED, RBC 2.63 L, MCV 92.0, MCH 30.5, RDW 19.2 H, MPV 9.2, Gran % 87.7 H, Lymphocytes % 3.6 L, Monocytes % 7.8, Eosinophils % 0.8, Basophils % 0.1, Absolute Granulocytes 11.1 H, Segmented Neutrophils 90 H, Absolute Lymphocytes 0.5 L, Lymphocytes 2 L, Monocytes 7, Absolute Monocytes 1.0 H, Eosinophils 1, Absolute Eosinophils 0.1, Absolute Basophils 0, Nucleated RBCs 1 H, Platelet Estimate ADEQUATE, Polychromasia 1+, Poikilocytosis 1+, Ovalocytes 1+, Elliptocytes FEW, [facility] MCHC 33.1, Fld Total RBCs Counted 100 12/11/16 1900: CBC w Diff Cancelled, WBC Cancelled, RBC Cancelled, Hgb Cancelled, Hct Cancelled , MCV Cancelled, MCH Cancelled, RDW Cancelled, Plt Count Cancelled, MPV Cancelled, [facility] C[facility] 12/11/16 1740: PT 32.7 H, INR 3.15 H, APTT 62 H, Fibrinogen Activity 296, Fibrin Degrad Products > 40 ug/ml H 12/11/16 1442: PT 31.7 H, INR 3.05 H, APTT 56 H, CBC w Diff NO MAN DIFF REQ, RBC 2.53 L, MCV 88.7, MCH 30.2, RDW 18.7 H, MPV 8.7, Gran % 85.3 H, Lymphocytes % 4.1 L, Monocytes % 7.3, Eosinophils % 3.1, Basophils % 0.2, Absolute Granulocytes 8.3 H, Absolute Lymphocytes 0.4 L, Absolute Monocytes 0.7 H, Absolute Eosinophils 0.3, Absolute Basophils 0, [facility] 34.1 12/11/16 1320: Anion Gap 11, Estimated GFR 23 L, BUN/Creatinine Ratio 54.1 H, CBC w Diff NO MAN DIFF REQ, RBC 2.69 L, MCV 88.0, MCH 29.9, RDW 18.8 H, MPV 8.9, Gran % 86.7 H, Lymphocytes % 3.0 L, Monocytes % 6.9, Eosinophils % 3.4, Basophils % 0 L, Absolute Granulocytes 7.3 H, Absolute Lymphocytes 0.3 L, Absolute Monocytes 0.6, Absolute Eosinophils 0.3, Absolute Basophils 0, PUBS MCHC 34.0 12/11/16 0800: Anion Gap 13, Estimated GFR 19 L, BUN/Creatinine Ratio 47.5 H, Iron 42 L, TIBC 341, Ferritin 734.0 H, Lactate Dehydrogenase 714 H, Vitamin B12 583, Folate 5.9 12/11/16 0800: Ammonia 9 12/11/16 0744: Haptoglobin Pending 12/11/16 0716: Troponin I Cancelled 12/11/16 0710: pH 7.47 H, pCO2 28 L, pO2 125 H, HCO3 20 L, ABG O2 Sat (Measured) 97.0, Carboxyhemoglobin 0.3 L, O2 Concentration % 2 LPM, O2 Delivery Method NC, Phlebotomy Draw Site RIGHT BRACHIAL 12/11/16 0310: Anion Gap 17 H, Estimated GFR 17 L, Glucose 187 H, Calcium 9.6, Phosphorus 4.9 H, Magnesium 2.9 H, Total Bilirubin 0.8, AST 46, ALT 44, Troponin I 0.43 * H, Albumin 2.8 L, CBC w Diff MAN DIFF ORDERED, RBC 2.97 L, MCV 89.2, MCH 30.1, RDW 18.7 H, MPV 9.3, Gran % 83.1 H, Lymphocytes % 5.5 L, Monocytes % 6.7, Eosinophils % 4.4, Basophils % 0.3, Absolute Granulocytes 7.0 H, Segmented Neutrophils 94 H, Absolute Lymphocytes 0.5 L, Lymphocytes 5 L, Absolute Monocytes 0.6, Eosinophils 1, Absolute Eosinophils 0.4, Absolute Basophils 0, Nucleated RBCs 1 H, Platelet Estimate ADEQUATE, Polychromasia 1+, Ovalocytes 1+ , PUBS MCHC 33.7 12/10/16 1600: Anion Gap 18 H, Estimated GFR 12 L, BUN/Creatinine Ratio 52.2 H, Phosphorus 5.6 H, Magnesium 3.0 H, CBC w Diff NO MAN DIFF REQ, RBC 2.62 L, MCV 89.9, MCH 30.4, RDW 17.0 H, MPV 9.2, Gran % 87.9 H, Lymphocytes % 3.6 L, Monocytes % 5.7, Eosinophils % 2.6, Basophils % 0.2, Absolute Granulocytes 9.0 H, Absolute Lymphocytes 0.4 L, Absolute Monocytes 0.6, Absolute Eosinophils 0.3, Absolute Basophils 0, PUBS MCHC 33.8 Microbiology 12/10 1100 GI: Surveillance Culture - COMP Telemetry personally reviewed atrial fibrillation with intermittent slow ventricular response Recent Imaging Studies: Echocardiogram CONCLUSIONS Normal appearing LV chamber size with mild concentric LVH. The estimated LVEF is 60% without focal wall motion abnormalities. Trileaflet aortic valve with mild location. There is adequate leaflet opening. There is mild tricuspid regurgitation. The estimated woman her systolic pressure is 50-60 mmHg. Matt Schrader M.D. Assessment/Plan Assessment/Plan 1. Altered mental status /encephalopathy 2. Acute kidney injury with evidence of hypovolemia 3. Persistent atrial fibrillation on outpatient anticoagulation with Pradaxa 4. Nonspecific troponin elevation in the setting of acute kidney injury without obvious evidence of ischemia or acute coronary syndrome 5. Epistaxis and anemia requiring transfusion 6. Alcohol dependence 7. Lower extremity ulcerations with history of lower extremity edema for which he was prescribed a short torsemide course but he reportedly continued on the torsemide 8. Hypernatremia 9. Baseline bradycardia without AV rick blockade consistent with underlying conduction disease Recommendations 1. Continue to monitor on telemetry. He does have periods of bradycardia with short pauses but no hemodynamic instability. Continue to hold AV rick blockers 2. Continue to hold anticoagulation 3. Continue fluids per renal 4. Patient's family requests that he be transferred to [facility] for further care Continue telemetry? Yes
--- NOTE | 2016-12-12 09:58 | PN- CRCU ---
Subjective HPI/Critical Care Issues: Patient seen and examined this morning. His rashes gotten worse. His creatinine has risen and his hemoglobin has trended down as well. In discussion with the family the bedside today they are Lamine emotion for consideration of transfer to [facility] per patient family request. His mental status is somewhat better however not improve dramatically. He is able to open his eyes and squeeze her hands. He does not seem to complain of any obvious issues but the review systems is limited due to the mental status changes. Objective Current Medications: Current Medications Sig/Marco Start time Last Medication Dose Route Stop Time Status Admin Acetaminophen 650 MG Q6P PRN 12/10 0015 AC PO Atorvastatin Calcium 80 MG 1700 12/10 1700 DC 12/10 PO 1734 Collagenase 1 KEE DAILY 12/11 0900 AC 12/12 TOP 0920 Dextrose/Sodium 500 ML Q3H 12/12 0915 AC Chloride IV Dextrose/Sodium 1,000 ML Q10H 12/11 0815 DC 12/12 Chloride IV 0659 Folic Acid 1 MG DAILY 12/10 1000 AC 12/10 PO 1200 Insulin Aspart 0 TIDAC 12/10 0800 DC SC Insulin Detemir 10 UNITS DAILY 12/10 1000 DC 12/10 SC 1200 Insulin Human Regular 0 Q6 12/11 1800 AC 12/12 SC 0549 Insulin Human Regular 0 ONCE ONE 12/11 1445 CAN IV 12/11 1446 Lorazepam 1 MG TID 12/11 1600 AC 12/12 IV 0919 Lorazepam 1 MG BID 12/10 1000 DC 12/10 PO 2232 Lorazepam 0 Q1P PRN 12/10 0015 AC 12/11 IV 1317 Multivitamins 1 TAB DAILY 12/10 1000 AC 12/10 PO 1000 Nystatin 1 KEE TID 12/10 2200 AC 12/12 TOP 0920 Pantoprazole Sodium 40 MG DAILY 12/10 1519 AC 12/12 IV 0920 Phytonadione 5 MG ONCE ONE 12/12 0815 DC 12/12 SC 12/12 0816 0919 Phytonadione 5 MG ONCE ONE 12/11 1645 DC 12/11 SC 12/11 1646 1853 Phytonadione 5 MG ONE ONE 12/11 1600 CAN SC 12/11 1601 Phytonadione 10 MG ONCE ONE 12/11 1445 CAN SC 12/11 1446 Thiamine HCl 500 MG TID 12/11 1600 AC 12/12 Sodium Chloride 100 ML IV 12/14 1059 0920 Thiamine HCl 300 MG DAILY 12/11 1100 DC Sodium Chloride 100 ML IV 12/13 1012 Thiamine HCl 100 MG ONCE ONE 12/11 1045 CAN Sodium Chloride 100 ML IV 12/11 1144 Thiamine HCl 100 MG DAILY 12/10 1000 AC 12/10 PO 1200 Vital Signs & I&O Last 24 Hrs of Vitals and I&O: Vital Signs Date Time Temp Pulse Resp B/P B/P Pulse O2 O2 Flow FiO2 Mean Ox Delivery Rate 12/12 08 98.4 79 22 122/52 100 Nasal 2.0L Cannula 12/12 0800 99 Nasal 2.0L Cannula 12/12 0600 77 24 104/44 12/12 0400 93 Nasal 2.0L Cannula 12/12 0200 78 24 120/66 12/12 0000 97.4 62 42 130/60 12/12 0000 97.4 62 24 130/60 100 Nasal 2.0L Cannula 12/12 0000 100 Nasal 2.0L Cannula 12/11 2200 74 24 104/51 12/11 2000 98.0 72 21 100/58 12/11 2000 100 Nasal 2.0L Cannula 12/11 1600 94 Nasal 2.0L Cannula 12/11 1600 96.5 64 20 110/60 95 Nasal 2.0L Cannula Intake & Output 12/12 1600 12/12 0800 12/12 0000 Intake Total 1050 1341 Output Total 98 350 Balance 952 991 Intake, IV 1050 1341 Output, Urine 98 350 Exam Other Physical Findings: Gen - alert and awake HEENT - some dried blood noted in the oral cavity CVS - S1, S2, faint murmur Lungs - rare rhonchi Abdomen - soft, non-tender, bs+ Ext - bilateral rubin dressings are intact Skin-rash that is truncal and inner forearms more coalesced without any vesicular changes more red petechial appearance Results Last 24 Hrs of Lab Results: Laboratory Tests 12/12/16 0818: Anion Gap 10, Estimated GFR 15 L, Glucose 133 H, Calcium 8.3 L, Phosphorus 4.1, Magnesium 2.5 H, Total Bilirubin 0.6, AST 34, ALT 47, Albumin 2.1 L, CBC w Diff NO MAN DIFF REQ, RBC 2.24 L, MCV 91.5, MCH 31.6 H, RDW 18.3 H, MPV 9.3 , Gran % 87.0 H, Lymphocytes % 4.1 L, Monocytes % 8.0, Eosinophils % 0.8, Basophils % 0.1, Absolute Granulocytes 9.4 H, Absolute Lymphocytes 0.4 L, Absolute Monocytes 0.9 H, Absolute Eosinophils 0.1, Absolute Basophils 0, PUBS MCHC 34.5 12/12/16 0200: Anion Gap 12, Estimated GFR 16 L, Glucose 144 H, Calcium 8.9, Phosphorus 4.7 H, Magnesium 2.7 H, Total Bilirubin 0.8, AST 37, ALT 47, Albumin 2.5 L, CBC w Diff MAN DIFF ORDERED, RBC 2.63 L, MCV 92.0, MCH 30.5, RDW 19.2 H, MPV 9.2, Gran % 87.7 H, Lymphocytes % 3.6 L, Monocytes % 7.8, Eosinophils % 0.8, Basophils % 0.1, Absolute Granulocytes 11.1 H, Segmented Neutrophils 90 H, Absolute Lymphocytes 0.5 L, Lymphocytes 2 L, Monocytes 7, Absolute Monocytes 1.0 H, Eosinophils 1, Absolute Eosinophils 0.1, Absolute Basophils 0, Nucleated RBCs 1 H, Platelet Estimate ADEQUATE, Polychromasia 1+, Poikilocytosis 1+, Ovalocytes 1+, Elliptocytes FEW, PUBS MCHC 33.1, Fld Total RBCs Counted 100 12/11/16 1900: CBC w Diff Cancelled, WBC Cancelled, RBC Cancelled, Hgb Cancelled, Hct Cancelled , MCV Cancelled, MCH Cancelled, RDW Cancelled, Plt Count Cancelled, MPV Cancelled, PUBS MCHC Cancelled 12/11/16 1740: PT 32.7 H, INR 3.15 H, APTT 62 H, Fibrinogen Activity 296, Fibrin Degrad Products > 40 ug/ml H 12/11/16 1442: PT 31.7 H, INR 3.05 H, APTT 56 H, CBC w Diff NO MAN DIFF REQ, RBC 2.53 L, MCV 88.7, MCH 30.2, RDW 18.7 H, MPV 8.7, Gran % 85.3 H, Lymphocytes % 4.1 L, Monocytes % 7.3, Eosinophils % 3.1, Basophils % 0.2, Absolute Granulocytes 8.3 H, Absolute Lymphocytes 0.4 L, Absolute Monocytes 0.7 H, Absolute Eosinophils 0.3, Absolute Basophils 0, PUBS MCHC 34.1 12/11/16 1320: Anion Gap 11, Estimated GFR 23 L, BUN/Creatinine Ratio 54.1 H, CBC w Diff NO MAN DIFF REQ, RBC 2.69 L, MCV 88.0, MCH 29.9, RDW 18.8 H, MPV 8.9, Gran % 86.7 H, Lymphocytes % 3.0 L, Monocytes % 6.9, Eosinophils % 3.4, Basophils % 0 L, Absolute Granulocytes 7.3 H, Absolute Lymphocytes 0.3 L, Absolute Monocytes 0.6, Absolute Eosinophils 0.3, Absolute Basophils 0, PUBS MCHC 34.0 Impression/Plan Impression/Plan Impression/Plan: Impression 80 year old man * altered mental status - differential of alcoholism, hypernatremia, renal failure * RAQUEL and hypernatremia * rash * anemia with acute blood loss, unclear etiology, pradaxa stopped * systolic murmur Plan Respiratory - aspiration precautions - keep spo2 >92% ID - monitor fevers, wbc - peripheral smear, check lyme titers and tick-borne diseases CVS - monitor hemodynamics Heme - iron studies, b12, folate, peripheral smear, ldh, haptoglobin - anemia workup - monitor cbc and coags Metabolic - ins/outs - f/u nephrology Alimentary - NPO Neuro - neurology consultation TTS 40 min d/w family at bedside In discussion with the family their Lamine emotion to transfer the patient to [facility] due to preference. We will continue to follow up and currently ordered testing transfused the patient with 1 unit of packed red blood cells and make a call to the [facility] ICU to try to get the patient over to the intensive care unit Code Status: Full Code
--- NOTE | 2016-12-12 10:21 | Patient Discharge Instructions ---
Discharge Instructions General Discharge Information You were seen/treated for: RAQUEL, Uremia, AMS, A.Fib Watch for these problems: Continued Bleeding. Worsening Rash. Fever, Chills, Nausea, Vomiting. Special Instructions: Please follow up with your PCP following discharge. Please follow up with your stockroom keeper following discharge. Diet Continue normal diet: No (As Tolerated) Activity Full Activity/No Limits: No Acute Coronary Syndrome Inclusion Criteria At DC or during hospital stay patient has or had the following: ACS DIAGNOSIS No Discharge Core Measures Meds if any: Prescribed or Continued at Discharge Meds if any: NOT Prescribed or Continued at Discharge Congestive Heart Failure Inclusion Criteria At DC or during hospital stay patient has or had the following: CHF DIAGNOSIS No Discharge Core Measures Meds if any: Prescribed or Continued at Discharge Meds if any: NOT Prescribed or Continued at Discharge Cerebrovascular accident Inclusion Criteria At DC or during hospital stay patient has or had the following: CVA/TIA Diagnosis No Discharge Core Measures Meds if any: Prescribed or Continued at Discharge Meds if any: NOT Prescribed or Continued at Discharge Venous thromboembolism Inclusion Criteria VTE Diagnosis No VTE Type NONE VTE Confirmed by (Test) NONE Discharge Core Measures - Per Current guidelines, there needs to be overlap - treatment for the first 5 days of Warfarin therapy. - If discharged on Warfarin prior to 5 days of - overlap therapy, the patient will need to be - assessed for post discharge needs including - *Post discharge parental anticoagulation - *Warfarin and/or parental anticoagulation education - *Follow up date to check INR post discharge At least 5 days overlap therapy as Inpatient No Meds if any: Prescribed or Continued at Discharge Note: Overlap Therapy is Warfarin and Anticoagulant Meds if any: NOT Prescribed or Continued at Discharge
--- NOTE | 2016-12-12 10:43 | Cons- Neurology ---
General Information and HPI Consulting Request Date of Consult: 12/12/16 Requested By: DANIEL RUIZ MD Reason for Consult: Altered Mental Status Source of Information: old records Exam Limitations: unable to give history, not alert/orientated, clinical condition, confusion History of Present Illness: This is an 80-year-old male who originally came to the hospital due to unrelenting epistaxis. He drinks 5-6 wine glasses a day every day and has done so for many years. He has a past medical history of hypertension, and in atrial fibrillation, diabetes mellitus and hyperlipidemia. He has also had a recent history of multiple unexplained falls and limb weakness. Since his admission to the hospital he has become progressively more somnolent and less responsive. There was concern regarding possible withdrawal and so started on Ativan so currently is extremely hyper somnolent cannot cooperate with the exam. Nurse at the bedside and denies any abnormal movements and attests that he moves all limbs equally. Allergies/Medications Allergies: Coded Allergies: No Known Allergies (12/09/16) Home Med List: Atorvastatin Calcium 80 MG TABLET 1 TAB PO DAILY CHOLESTEROL (Reported) Atropine Sulfate 1 % DROPS 1 DROP OS EOD LEFT EYE (Reported) Brimonidine Tartrate/Timolol (Combigan Eye Drops) 0.2 %-0.5 % DROPS 1 DROP OP BID BOTH EYES (Reported) Cephalexin 750 MG CAPSULE 1 CAP PO 4XDAILY ANTIBIOTIC (Reported) Dabigatran Etexilate Mesylate (Pradaxa 150 MG) 150 MG CAPSULE 1 CAP PO BID BLOOD THINNER (Reported) Fenofibrate Nanocrystallized (Tricor) 145 MG TABLET 1 TAB PO DAILY CHOLESTEROL /TRIGLYCERIDES (Reported) Glucosam/Chond/Hyalu/Cf Borate (Move Free Joint Health Tablet) (Unknown Strength ) TABLET (Unknown Dose) PO AD SUPPLEMENT (Reported) Insulin Glargine,Hum.rec.anlog (Lantus Solostar) (Unknown Strength) INSULN.PEN (Unknown Dose) SC DAILY DM (Reported) Mesalamine (Asacol Hd) 800 MG TABLET.DR 2 TAB PO BID GI (Reported) [place]-3/Dha/Epa/Fish Oil (Fish Oil 1,000 MG Softgel) (Unknown Strength) CAPSULE (Unknown Dose) PO DAILY SUPPLEMENT (Reported) Potassium Chloride 20 MEQ TAB.ER.PRT 1 TAB PO DAILY SUPPLEMENT (Reported) Silver Sulfadiazine (Silvadene) 1 % CREAM..G. 1 KEE TOP BID BILATERAL SHINS ( Reported) apply to affected area(s) Torsemide 100 MG TABLET 0.5 TAB PO DAILY DIURETIC (Reported) Valsartan/Hydrochlorothiazide (Valsartan-Hctz 320-25 MG Tab) 320 MG-25 MG TABLET 1 TAB PO DAILY BP (Reported) Current Medications: Current Medications Sig/Marco Start time Last Medication Dose Route Stop Time Status Admin Acetaminophen 650 MG Q6P PRN 12/10 0015 AC PO Collagenase 1 KEE DAILY 12/11 0900 AC 12/12 TOP 0920 Dextrose/Sodium 500 ML Q3H 12/12 0915 AC 12/12 Chloride IV 1020 Dextrose/Sodium 1,000 ML Q10H 12/11 0815 DC 12/12 Chloride IV 0659 Folic Acid 1 MG DAILY 12/10 1000 AC 12/10 PO 1200 Insulin Aspart 0 TIDAC 12/10 0800 DC SC Insulin Detemir 10 UNITS DAILY 12/10 1000 DC 12/10 SC 1200 Insulin Human Regular 0 Q6 12/11 1800 AC 12/12 SC 0549 Insulin Human Regular 0 ONCE ONE 12/11 1445 CAN IV 12/11 1446 Lorazepam 1 MG TID 12/11 1600 AC 12/12 IV 0919 Lorazepam 1 MG BID 12/10 1000 DC 12/10 PO 2232 Lorazepam 0 Q1P PRN 12/10 0015 AC 12/11 IV 1317 Multivitamins 1 TAB DAILY 12/10 1000 AC 12/10 PO 1000 Nystatin 1 KEE TID 12/10 2200 AC 12/12 TOP 0920 Pantoprazole Sodium 40 MG DAILY 12/10 1519 AC 12/12 IV 0920 Phytonadione 5 MG ONCE ONE 12/12 0815 DC 12/12 DC 12/12 0816 0919 Phytonadione 5 MG ONCE ONE 12/11 1645 DC 12/11 DC 12/11 1646 1853 Phytonadione 5 MG ONE ONE 12/11 1600 CAN SC 12/11 1601 Phytonadione 10 MG ONCE ONE 12/11 1445 CAN SC 12/11 1446 Thiamine HCl 500 MG TID 12/11 1600 AC 12/12 Sodium Chloride 100 ML IV 12/14 1059 0920 Thiamine HCl 300 MG DAILY 12/11 1100 DC Sodium Chloride 100 ML IV 12/13 1012 Thiamine HCl 100 MG ONCE ONE 12/11 1045 CAN Sodium Chloride 100 ML IV 12/11 1144 Thiamine HCl 100 MG DAILY 12/10 1000 AC 12/10 PO 1200 Review of Systems Review of Systems: As per HPI otherwise negative to the 10 point complete review of system. 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 Home Who Do You Live With? girlfriend Services at Home: None Primary Language: Angolan Smoking Status: Former Smoker ETOH Use: heavy use Illicit Drug Use: denies illicit drug use Living Will? unknown (per dtr, Ashlyn) Power of Measurer Machine/HCP? no (per dtr, Ashlyn "she is closest) Other Social History: Lives with girlfriend. 5-6 drinks EtOH daily. Ex-smoker. No drugs. 1 son, Mark, & 1 dtr, Ashlyn- [employer] (uncertain if the son has cognitive or psychologic issues). Retired [employer] & was cindy in the army? Functional Ability ADLs Unknown: dressing, eating, toileting, bathing. Ambulation: unknown IADLs Unknown: shopping, housework, finances, food prep, telephone, transportation, medication admin. Employment History Employment: Retired Profession/Employer: [employer]ention[employer] ECHO Results (as available) Date of last Echo 12/10/16 EF% 60 Exam & Diagnostic Data Vital Signs and I&O Vital Signs Date Time Temp Pulse Resp B/P B/P Pulse O2 O2 Flow FiO2 Mean Ox Delivery Rate 12/12 08 98.4 79 22 122/52 100 Nasal 2.0L Cannula 12/12 0800 99 Nasal 2.0L Cannula 12/12 0600 77 24 104/44 12/12 0400 93 Nasal 2.0L Cannula 12/12 0200 78 24 120/66 12/12 0000 97.4 62 42 130/60 12/12 0000 97.4 62 24 130/60 100 Nasal 2.0L Cannula 12/12 0000 100 Nasal 2.0L Cannula 12/11 2200 74 24 104/51 12/12 1999 98.0 72 21 100/58 12/12 1999 100 Nasal 2.0L Cannula 12/11 1600 94 Nasal 2.0L Cannula 12/12 1599 96.5 64 20 110/60 95 Nasal 2.0L Cannula Intake & Output 12/12 0800 12/12 0000 Intake Total 1050 1341 Output Total 98 350 Balance 952 991 Intake, IV 1050 1341 Output, Urine 98 350 Physical Exam: The exam is limited due to the patient's mental status. He does not respond to verbal call and minimal response to tactile stimuli although when tickled at the sole of the feet he does withdraw both sides equally. The eyes move normally with the doll's eye maneuver. The right pupil is smaller than the left the left being 4 mm and the right being 2 mm. Both however are reactive to light. Other obvious focality is noted on exam. The patient does have excoriation within the roof of the mouth in the soft palate. Last 48 Hours of Lab Results: Laboratory Tests 12/12 12/12 0818 0200 Chemistry Sodium (137 - 145 mmol/L) 152 H 153 H Potassium (3.5 - 5.1 mmol/L) 3.7 3.9 Chloride (98 - 107 mmol/L) 121 H 119 H Carbon Dioxide (22 - 30 mmol/L) 21 L 23 Anion Gap (5 - 16) 10 12 BUN (9 - 20 mg/dL) 141 *H 149 *H Creatinine (0.7 - 1.2 mg/dL) 3.8 H 3.7 H Estimated GFR (>60 ml/min) 15 L 16 L Glucose (65 - 99 mg/dL) 133 H 144 H Calcium (8.4 - 10.2 mg/dL) 8.3 L 8.9 Phosphorus (2.5 - 4.5 mg/dL) 4.1 4.7 H Magnesium (1.6 - 2.3 mg/dL) 2.5 H 2.7 H Total Bilirubin (0.2 - 1.3 mg/dL) 0.6 0.8 AST (17 - 59 U/L) 34 37 ALT (21 - 72 U/L) 47 47 Albumin (3.5 - 5.0 g/dL) 2.1 L 2.5 L Hematology CBC w Diff NO MAN DIFF REQ MAN DIFF ORDERED WBC (4.8 - 10.8 /CUMM) 10.8 12.7 H RBC (4.70 - 6.10 /CUMM) 2.24 L 2.63 L Hgb (14.0 - 18.0 G/DL) 7.1 *L 8.0 L Hct (42 - 52 %) 20.5 L 24.1 L MCV (80.0 - 94.0 FL) 91.5 92.0 MCH (27.0 - 31.0 PG) 31.6 H 30.5 RDW (11.5 - 14.5 %) 18.3 H 19.2 H Plt Count (130 - 400 /CUMM) 184 219 MPV (7.4 - 10.4 FL) 9.3 9.2 Gran % (42.2 - 75.2 %) 87.0 H 87.7 H Lymphocytes % (20.5 - 51.1 %) 4.1 L 3.6 L Monocytes % (1.7 - 9.3 %) 8.0 7.8 Eosinophils % (0 - 5 %) 0.8 0.8 Basophils % (0.0 - 2.0 %) 0.1 0.1 Absolute Granulocytes (1.4 - 6.5 /CUMM) 9.4 H 11.1 H Segmented Neutrophils (42.2 - 75.2 %) 90 H Absolute Lymphocytes (1.2 - 3.4 /CUMM) 0.4 L 0.5 L Lymphocytes (20.5 - 51.1 %) 2 L Monocytes (1.7 - 9.3 %) 7 Absolute Monocytes (0.10 - 0.60 /CUMM) 0.9 H 1.0 H Eosinophils (0 - 5.0 %) 1 Absolute Eosinophils (0.0 - 0.7 /CUMM) 0.1 0.1 Absolute Basophils (0.0 - 0.2 /CUMM) 0 0 Nucleated RBCs (0.0 - 0.0 /100WBC) 1 H Platelet Estimate (ADEQUATE) ADEQUATE Polychromasia 1+ Poikilocytosis 1+ Ovalocytes 1+ Elliptocytes FEW PUBS MCHC (33.0 - 37.0 G/DL) 34.5 33.1 Other Body Source Fld Total RBCs Counted (%) 100 12/11 12/11 1900 1740 Coagulation PT (9.4 - 12.5 SEC) 32.7 H INR (0.90 - 1.17) 3.15 H APTT (25 - 37 SEC) 62 H Fibrinogen Activity (200 - 393 MG/DL) 296 Fibrin Degrad Products (< 10 ug/ml) > 40 ug/ml H Hematology CBC w Diff Cancelled WBC Cancelled RBC Cancelled Hgb Cancelled Hct Cancelled MCV Cancelled MCH Cancelled RDW Cancelled Plt Count Cancelled MPV Cancelled PUBS MCHC Cancelled 12/11 12/11 1442 1320 Chemistry Sodium (137 - 145 mmol/L) 154 H Potassium (3.5 - 5.1 mmol/L) 3.4 L Chloride (98 - 107 mmol/L) 119 H Carbon Dioxide (22 - 30 mmol/L) 21 L Anion Gap (5 - 16) 11 BUN (9 - 20 mg/dL) 146 *H Creatinine (0.7 - 1.2 mg/dL) 2.7 H Estimated GFR (>60 ml/min) 23 L BUN/Creatinine Ratio (7 - 25 %) 54.1 H Coagulation PT (9.4 - 12.5 SEC) 31.7 H INR (0.90 - 1.17) 3.05 H APTT (25 - 37 SEC) 56 H Hematology CBC w Diff NO MAN DIFF REQ NO MAN DIFF REQ WBC (4.8 - 10.8 /CUMM) 9.7 8.4 RBC (4.70 - 6.10 /CUMM) 2.53 L 2.69 L Hgb (14.0 - 18.0 G/DL) 7.7 L 8.0 L Hct (42 - 52 %) 22.4 L 23.6 L MCV (80.0 - 94.0 FL) 88.7 88.0 MCH (27.0 - 31.0 PG) 30.2 29.9 RDW (11.5 - 14.5 %) 18.7 H 18.8 H Plt Count (130 - 400 /CUMM) 214 212 MPV (7.4 - 10.4 FL) 8.7 8.9 Gran % (42.2 - 75.2 %) 85.3 H 86.7 H Lymphocytes % (20.5 - 51.1 %) 4.1 L 3.0 L Monocytes % (1.7 - 9.3 %) 7.3 6.9 Eosinophils % (0 - 5 %) 3.1 3.4 Basophils % (0.0 - 2.0 %) 0.2 0 L Absolute Granulocytes (1.4 - 6.5 /CUMM) 8.3 H 7.3 H Absolute Lymphocytes (1.2 - 3.4 /CUMM) 0.4 L 0.3 L Absolute Monocytes (0.10 - 0.60 /CUMM) 0.7 H 0.6 Absolute Eosinophils (0.0 - 0.7 /CUMM) 0.3 0.3 Absolute Basophils (0.0 - 0.2 /CUMM) 0 0 PUBS MCHC (33.0 - 37.0 G/DL) 34.1 34.0 12/11 12/11 12/11 12/11 0800 0800 0744 0716 Chemistry Sodium (137 - 145 mmol/L) 151 H Potassium (3.5 - 5.1 mmol/L) 3.5 Chloride (98 - 107 mmol/L) 115 H Carbon Dioxide (22 - 30 mmol/L) 23 Anion Gap (5 - 16) 13 BUN (9 - 20 mg/dL) 152 *H Creatinine (0.7 - 1.2 mg/dL) 3.2 H Estimated GFR (>60 ml/min) 19 L BUN/Creatinine Ratio (7 - 25 %) 47.5 H Iron (49 - 181 ug/dL) 42 L TIBC (261 - 462 ug/dL) 341 Ferritin (17.9 - 464 ng/mL) 734.0 H Ammonia (9 - 30 umol/L) 9 Lactate Dehydrogenase (313 - 618 U/L) 714 H Troponin I Cancelled Vitamin B12 (239 - 931 pg/mL) 583 Folate (2.76 - 20.0 ng/mL) 5.9 Hematology Haptoglobin Pending 12/11 12/11 0710 0310 Blood Gas pH (7.35 - 7.45 PH) 7.47 H pCO2 (35 - 45 TORR) 28 L pO2 (80 - 100 TORR) 125 H HCO3 (21 - 28 MEQ/L) 20 L ABG O2 Sat (Measured) (>96.0 %) 97.0 Carboxyhemoglobin (1.5 - 5.0 %) 0.3 L O2 Concentration % 2 LPM O2 Delivery Method NC Chemistry Sodium (137 - 145 mmol/L) 151 H Potassium (3.5 - 5.1 mmol/L) 4.2 Chloride (98 - 107 mmol/L) 117 H Carbon Dioxide (22 - 30 mmol/L) 16 L Anion Gap (5 - 16) 17 H BUN (9 - 20 mg/dL) 168 *H Creatinine (0.7 - 1.2 mg/dL) 3.5 H Estimated GFR (>60 ml/min) 17 L Glucose (65 - 99 mg/dL) 187 H Calcium (8.4 - 10.2 mg/dL) 9.6 Phosphorus (2.5 - 4.5 mg/dL) 4.9 H Magnesium (1.6 - 2.3 mg/dL) 2.9 H Total Bilirubin (0.2 - 1.3 mg/dL) 0.8 AST (17 - 59 U/L) 46 ALT (21 - 72 U/L) 44 Troponin I (<0.11 ng/ml) 0.43 *H Albumin (3.5 - 5.0 g/dL) 2.8 L Hematology CBC w Diff MAN DIFF ORDERED WBC (4.8 - 10.8 /CUMM) 8.5 RBC (4.70 - 6.10 /CUMM) 2.97 L Hgb (14.0 - 18.0 G/DL) 8.9 L Hct (42 - 52 %) 26.5 L MCV (80.0 - 94.0 FL) 89.2 MCH (27.0 - 31.0 PG) 30.1 RDW (11.5 - 14.5 %) 18.7 H Plt Count (130 - 400 /CUMM) 215 MPV (7.4 - 10.4 FL) 9.3 Gran % (42.2 - 75.2 %) 83.1 H Lymphocytes % (20.5 - 51.1 %) 5.5 L Monocytes % (1.7 - 9.3 %) 6.7 Eosinophils % (0 - 5 %) 4.4 Basophils % (0.0 - 2.0 %) 0.3 Absolute Granulocytes (1.4 - 6.5 /CUMM) 7.0 H Segmented Neutrophils (42.2 - 75.2 %) 94 H Absolute Lymphocytes (1.2 - 3.4 /CUMM) 0.5 L Lymphocytes (20.5 - 51.1 %) 5 L Absolute Monocytes (0.10 - 0.60 /CUMM) 0.6 Eosinophils (0 - 5.0 %) 1 Absolute Eosinophils (0.0 - 0.7 /CUMM) 0.4 Absolute Basophils (0.0 - 0.2 /CUMM) 0 Nucleated RBCs (0.0 - 0.0 /100WBC) 1 H Platelet Estimate (ADEQUATE) ADEQUATE Polychromasia 1+ Ovalocytes 1+ PUBS MCHC (33.0 - 37.0 G/DL) 33.7 Miscellaneous Phlebotomy Draw Site RIGHT BRACHIAL 12/10 1600 Chemistry Sodium (137 - 145 mmol/L) 146 H Potassium (3.5 - 5.1 mmol/L) 4.1 Chloride (98 - 107 mmol/L) 116 H Carbon Dioxide (22 - 30 mmol/L) 12 L Anion Gap (5 - 16) 18 H BUN (9 - 20 mg/dL) > 240 *H Creatinine (0.7 - 1.2 mg/dL) 4.6 H Estimated GFR (>60 ml/min) 12 L BUN/Creatinine Ratio (7 - 25 %) 52.2 H Phosphorus (2.5 - 4.5 mg/dL) 5.6 H Magnesium (1.6 - 2.3 mg/dL) 3.0 H Hematology CBC w Diff NO MAN DIFF REQ WBC (4.8 - 10.8 /CUMM) 10.2 RBC (4.70 - 6.10 /CUMM) 2.62 L Hgb (14.0 - 18.0 G/DL) 8.0 L Hct (42 - 52 %) 23.5 L MCV (80.0 - 94.0 FL) 89.9 MCH (27.0 - 31.0 PG) 30.4 RDW (11.5 - 14.5 %) 17.0 H Plt Count (130 - 400 /CUMM) 196 MPV (7.4 - 10.4 FL) 9.2 Gran % (42.2 - 75.2 %) 87.9 H Lymphocytes % (20.5 - 51.1 %) 3.6 L Monocytes % (1.7 - 9.3 %) 5.7 Eosinophils % (0 - 5 %) 2.6 Basophils % (0.0 - 2.0 %) 0.2 Absolute Granulocytes (1.4 - 6.5 /CUMM) 9.0 H Absolute Lymphocytes (1.2 - 3.4 /CUMM) 0.4 L Absolute Monocytes (0.10 - 0.60 /CUMM) 0.6 Absolute Eosinophils (0.0 - 0.7 /CUMM) 0.3 Absolute Basophils (0.0 - 0.2 /CUMM) 0 PUBS MCHC (33.0 - 37.0 G/DL) 33.8 Imaging/Other Studies: NCHCT FINDINGS: Again seen is hypoattenuation of the left occipital cortex focally extending through both the white and fortune matter, unchanged from prior study and most compatible with chronic changes of encephalomalacia. There is no evidence of acute intracranial hemorrhage or territorial infarction. No abnormal mass effect or midline shift is seen. Aside from the aforementioned abnormality in the left upper lobe, the fortune-white junction is well preserved. No extra-axial fluid collections are identified. Moderate enlargement of the ventricles, sulci, and extra-axial CSF spaces is in keeping with age-appropriate parenchymal volume loss. Calcific atherosclerosis is present within the cavernous segments of the internal carotid arteries. Globes are aphakic. The osseous structures and soft tissues are normal. The mastoid air cells and visualized portions of the paranasal sinuses are well aerated. Assessment/Plan Assessment: 80-year-old man with alcohol dependence and abuse who presents with multiple falls are likely multifactorial in nature. Falls could be a result of alcohol dated polyneuropathy, alcohol related cerebellar degeneration, nutrient deficiencies related to alcohol leading to neurological dysfunction, and more. 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 At the moment his breast mental status is likely related to his alcohol withdrawal of though seizures cannot be ruled out. He is use may be as a result of a alcohol withdrawal could also be related to seizure focus in the brain. Recommendations: 1. EEG 2. Continue with Ativan taper. 3. Provide supportive fluids and electrolytes 4. Supplement B12 and folate, preferably B12 injections daily. Consult Acknowledgment - Thank you for your consult request.
[2016-12-12] MEDS ORDERED: FOLIC ACID1 M1 PO (10:44)
[2016-12-12] MEDS ORDERED: PROTONIX40 M3 IV (11:07)
[2016-12-12] MEDS ORDERED: ONE DAILY MULT1 EAC2 PO (11:08)
[2016-12-12] MEDS ORDERED: NYSTATIN15 G1 TOP (11:08)
--- NOTE | 2016-12-12 11:48 | NUR ---
@0800-PT DROWSY/AROUS. OPENS EYES TO VERBAL STIMULI. FOLLOWS SIMPLE COMMANDS BUT FALLS BACK ASLEEP. PUPILS UNEQUAL, R 2MM, L 3MM. EQUAL STRENGTH NOTED AT THIS TIME 1:1 SITTER REMAINS AT BEDSIDE FOR SAFETY OF TUBES. CIWA 4-5. PT CONT ON SCHED ATIVAN 1MG IV TID. PT ALSO CONT ON IV THIAMINE INFUSION TIS. CONT ON 02THERAPY 2LNC, 02SAT 94%-97%. LUNGS CLEAR, DIM TO BASES. AFIB HR 70S. EPISODES OF BRADYCARDIA 40S. BP STABLE. REMAINS NPO. ABD SOFT, +BS. SRIVASTAVA IN PLACE WITH 10-30ML HOURLY OF CLEAR YELLOW URINE. SM AMTS OF BLOOD NOTED TO CONT TO OOZE FROM PENIS OPENING-GUAZE DSG IN PLACE. PT CONT ON SPECIALTY MATTRESS FOR MULT SKIN ISSUES. MULT ECCHYMOTIC AREAS NOTED TO BUE AND BLE. SIGNIFICANT ECCHYMOTIC AREA NOTED TO R HIP AREA. RASH CONT TO TRUNK, ARMS AND BLE. DUODERMS INTACT TO BILAT BUTTOCKS ULCERS. DSG NOTED TO BLE-TO CHANGE DSG THIS AM. IVF CONT D1/2NS INFUSING AT 150ML/HR. REPEAT LABS INCLUSING CBC/ICU PANEL DRAWN AT THIS TIME. VIT K 5MG ORD. WILL ADMINISTER WHEN ARRIVES FROM PHARMACY.
--- NOTE | 2016-12-12 11:59 | NUR ---
@1000-IV ATIVAN ADMINISTERED. IV THIAMINE INFUSING. IVF TO BE CHANGED TO D5W 1/3NS AT 200ML/HR. REPEAT H/H 7.1, 20.5. 1 UNIT PRBC INFUSING AT THIS TIME(4TH UNIT SINCE ADMISSION. DSG REMOVED TO BLE. SANTYL APPLIED TO ALL OPEN AREAS, COVERED WITH XEROFORM, TELFA AND KERLIX. ELEVATED ON PILLOWS. CONT TO MONITOR CLSOELY. FAMILY REQUESTING TRANSFER TO [facility]. DR RILEY AND HOUSESTAFF TEAM AT BEDSIDE DISCUSSING PLAN AT BEDSIDE. AWAITING BED AVAIL AT [facility] [place]. CONT TO MONITOR, CALL STUBBS WITHIN REACH.
--- NOTE | 2016-12-12 12:02 | NUR ---
@1130- RECIEVED BED ASSIGNMENT FROM [facility]. RN TO RN REPORT GIVEN TO ISSA. PT AND FAMILY AWARE OF PLAN FOR TRANSFER. [facility] PICKUP SETUP FOR 1200. BLOOD TRANSFUSION COMPLETE AT THIS TIME 1138. SITE FLUSHED.
--- NOTE | 2016-12-12 12:21 | NUR ---
@1210-[facility] AT BEDSIDE FOR PT TRANSPORT TO [facility]. FAMILY AWARE OF TRANSFER. REPORT GIVEN TO EMS.
== END 2016-12-12 12:15 | disposition short-term general hospital (02) | DRG 682 ==
LOC: ERH 16:00 → CRI 19:16 → ERHI 19:16 → CRI 19:16 → ENRESERV 22:53 → CRI 12-10 00:06
PROVIDERS: Internal Medicine; Ophthalmology; Physician Assistant; Student in an Organized Health Care Education/Training Program; ADMIT Internal Medicine
PROC: 30233N1 Transfusion of Nonautologous Red Blood Cells into Peripheral Vein, Percutaneous Approach (ICD-10-PCS; principal; 2016-12-10)
DX: N17.9 Acute kidney failure, unspecified (principal); G93.40 Encephalopathy, unspecified; L89.310 Pressure ulcer of right buttock, unstageable; E87.3 Alkalosis; E46 Unspecified protein-calorie malnutrition; L89.320 Pressure ulcer of left buttock, unstageable; E87.2 Acidosis; E87.0 Hyperosmolality and hypernatremia; I24.8 Other forms of acute ischemic heart disease; D62 Acute posthemorrhagic anemia; L97.829 Non-pressure chronic ulcer of other part of left lower leg with unspecified severity; L97.819 Non-pressure chronic ulcer of other part of right lower leg with unspecified severity; I48.1 Persistent atrial fibrillation; E86.0 Dehydration; I73.9 Peripheral vascular disease, unspecified; E87.5 Hyperkalemia; R00.1 Bradycardia, unspecified; E11.22 Type 2 diabetes mellitus with diabetic chronic kidney disease; E11.42 Type 2 diabetes mellitus with diabetic polyneuropathy; E11.622 Type 2 diabetes mellitus with other skin ulcer; R04.0 Epistaxis; R21 Rash and other nonspecific skin eruption; I12.9 Hypertensive chronic kidney disease with stage 1 through stage 4 chronic kidney disease, or unspecified chronic kidney disease; N18.9 Chronic kidney disease, unspecified; E78.5 Hyperlipidemia, unspecified; Z79.4 Long term (current) use of insulin; Z79.01 Long term (current) use of anticoagulants; Z87.891 Personal history of nicotine dependence
CPT/HCPCS: 86317; 87798; CCU; ERO; 36415; 74176; 81001; 82436; 83010; 86920; 87040; 87086; 87088; 90662; 93005; 93010; 93306; 94799; 99291; G0480; J3490; J7042; P9016